=== PATIENT | male | born 1955 | race Caucasian/White ===

== ENCOUNTER 2018-11-23 06:17 | Inpatient (IN) | payer BC ==
[2018-11-23] MEDS ORDERED: THROMBIN (BOVINE) 5,000 UNIT VIAL TP ONE ×2 (07:52→10:43)
[2018-11-23] MEDS ORDERED: HEPARIN NA (PORCINE) 5,000 UNITS/ML 1ML VIAL ONE (07:52)
[2018-11-23] MEDS ORDERED: BENZOIN TINCTURE SWABSTICK TP ONE (07:52)
[2018-11-23] MEDS ORDERED: MIDAZOLAM HCL 2 MG/2 ML SINGLE DOSE VIAL ONE (08:07)
[2018-11-23] MEDS ORDERED: fentaNYL CITRATE 250 MCG/5 ML VIAL ONE ×2 (08:07→08:51)
[2018-11-23] MEDS ORDERED: PROPOFOL 20 ML ONE ×8 (08:08→11:55)
[2018-11-23] MEDS ORDERED: SUCCINYLCHOLINE CHLORIDE 200 MG/10 ML VIAL ONE (08:08)
[2018-11-23] MEDS ORDERED: PHENYLEPHRINE HCL 10 MG/1 ML SINGLE DOSE VIAL ONE (08:08)
[2018-11-23] MEDS ORDERED: ROCURONIUM BROMIDE 50 MG/5 ML VIAL ONE (08:19)
[2018-11-23] MEDS ORDERED: VANCOMYCIN 1,000 MG VIAL (RESTRICTED TO ID ONLY) IVPB ONE (08:43)
[2018-11-23] MEDS ORDERED: ceFAZolin SODIUM 1 GM VIAL IVPB ONE ×2 (08:45→11:34)
[2018-11-23] MEDS ORDERED: DESFLURANE GAS 240 ML BOTTLE IH ONE (08:49)
[2018-11-23] MEDS ORDERED: ceFAZolin SODIUM 1 GM VIAL ONE ×3 (08:50→11:22)
[2018-11-23] MEDS ORDERED: VANCOMYCIN 1,000 MG VIAL (RESTRICTED TO ID ONLY) ONE (09:00)
[2018-11-23] MEDS ORDERED: BUPIVACAINE LIPOSOME/PF (EXPAREL) 266 MG/20 ML VIAL NR ONE (09:30)
[2018-11-23] MEDS ORDERED: ONDANSETRON 4 MG/2 ML VIAL ONE ×2 (09:33→11:38)
[2018-11-23] MEDS ORDERED: DEXAMETHASONE SOD PHOSPHATE 4 MG/1 ML VIAL ONE (09:33)
--- NOTE | 2018-11-23 09:53 | EKG ---
Test Reason : Blood Pressure : / mmHG Vent. Rate : 075 BPM Atrial Rate : 075 BPM P-R Int : 166 ms QRS Dur : 112 ms QT Int : 412 ms P-R-T Axes : 080 083 054 degrees QTc Int : 460 ms NORMAL SINUS RHYTHM NORMAL ECG NO PREVIOUS ECGS AVAILABLE Confirmed by KAUSHIK MCGOVERN MD ([id number]) on 11/23/2018 9:53:06 AM Referred By: Iain Alvarado Confirmed By:KAUSHIK MCGOVERN MD
[2018-11-23] MEDS ORDERED: BUPIVACAINE HCL/PF (5 MG/ML) 30 ML VIAL IJ ONE (10:43)
[2018-11-23] MEDS ORDERED: BUPIVACAINE LIPOSOME/PF (EXPAREL) 266 MG/20 ML VIAL IJ ONE (10:43)
[2018-11-23] MEDS ORDERED: NEOSTIGMINE METHYLSULFATE 0.5 MG/1 ML - 10 ML MDV ONE (11:36)
[2018-11-23] MEDS ORDERED: GLYCOPYRROLATE 0.2 MG/1 ML VIAL ONE (11:36)
[2018-11-23] MEDS ORDERED: ACETAMINOPHEN INJECTION 100 ML IVPB ONE (11:42)
[2018-11-23] MEDS ORDERED: LIDOCAINE HCL/PF 2% SDV 5ML VIAL ONE (12:19)
--- NOTE | 2018-11-23 12:40 | PN ---
Progress Note (short form) - Note Progress Note: 63M s/p L3 laminectomy; L2 & L4 laminotomies; L3-L4 PLIF; L3-L4 posterior instrumentation; L3-L4 posterolateral arthrodesis; bone graft; bone marrow aspiration POD #0. -Admit to ICU post-op. -EtOH withdrawal precautions: Librium taper (25mg po q8h x 3 days, then taper off); banana bag. -Pain control: per anaesthesia team; recommend RADIOLOGY SERVICES MANAGER; no NSAID's. -Head of bed FLAT; BEDREST x 72 hrs. post-op d/t intra-operative durotomy and primary dural repair. -DVT PPx: - Mechanical only: PABLO's, SCD's. -Incentive spirometry q15min. -PT/OT/Rehab, OOB. -WBAT B/L LE. -q4h B/L LE NV checks. -Post-op antibiotics x 2 doses. -NPO until flatus. -f/u AM labs. -f/u drain output. -d/c Rivera catheter when patient ambulating comfortably. -Care per ICU & medical hospitalist team. -Discharge planning: f/u 12/04/2018 at [facility] [place] office; call for appointment; . -Will follow. Iain Alvarado MD (Orthopaedic Surgery).
[2018-11-23] MEDS ORDERED: HYDROmorphone *PCA* 10MG/50ML DISP.SYRIN PCA ONE (12:44)
--- NOTE | 2018-11-23 12:46 | OP ---
Operative Note - Note: Operative Date: 11/23/18 Pre-Operative Diagnosis: 1. L3-L4 intervertebral disc disorder. 2. L3-L4 spinal stenosis. 3. Lumbar kyphosis. 4. L3-L4 segmental instability. Operation: 1. L3 laminectomy. 2. L2 & L4 laminotomies. 3. L3-L4 PLIF. 4. L3- L4 posterior instrumentation. 5. L3-L4 posterolateral arthrodesis. 6. Bone autograft. 7. Bone allograft. 8. Bone marrow aspiration. 9. Complex wound closure (10cm). 10. Biplanar fluoroscopy. 11. Intra-operative neural monitoring. Implants: Cage: RTI fortilink size #[id number]. Screws: 4 6.5x45mm. Rods: 2 40mm Post-Operative Diagnosis: Same as Pre-op Surgeon: Iain Alvarado Prescription Eyeglass Maker: Juwan Alvarado Anesthesiologist/PROOFER: Merced Frazier Anesthesia: General, Local Specimens Removed: L3-L4 disc. Estimated Blood Loss (mls): 600 Blood Volume Replaced (mls): 250 (Cell saver.) Fluid Volume Replaced (mls): 2,000 (Crystalloid.) Operative Report Dictated: Yes
[2018-11-23] MEDS ORDERED: ONDANSETRON 4 MG/2 ML VIAL IVPUSH PRN ×2 (12:48→12:54)
[2018-11-23] MEDS ORDERED: ACETAMINOPHEN 1000 MG/100 ML VIAL (NON FORMULARY) IVPB PRN (12:54)
[2018-11-23] MEDS: HYDROmorphone *PCA* 10MG/50ML DISP.SYRIN PCA SCH (12:55)
[2018-11-23] MEDS ORDERED: LACTATED RINGERS SOLUTION 1,000 ML IV SCH (13:00)
[2018-11-23] MEDS ORDERED: FOLIC ACID INJECTION - 1 MG, THIAMINE HCL 100 MG, MULTIVIT INJECTION ADULT 10 ML in SOD... IVPB ONE (13:06)
--- NOTE | 2018-11-23 15:04 | CONSULT ---
Consultation: ICU team REQUESTING PROVIDER:Dr Dewitt orthopedics CONSULT REQUEST: We have been asked to medically evaluate this patient for ( Post op monitoring ). HISTORY OF PRESENT ILLNESS: 63 year old male with h/o HTN , ETOH and lower back pain radiated to left presented to the hospital for lumbar spine laminectomy POD#0 Pt last drink of alcohol yesterday 2 pm vodka denies any fever, chills, N/V/D/C denies any chest pain or sob , denies any abdominal pain. denies any urinary symptoms PMHx: HTN PSHx: cervical spine surgery 7 years ago FH: non contributory Meds : Amlodipine and losartan , declofinac for pain Allergies : NKDA SH: Alcoholic , smoke cigars on daily bases , no drugs, last drink yesterday 2 pm . 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 REVIEW OF SYSTEMS: lower back pain in surgery sight otherwise negative CONSTITUTIONAL: Absent: fever, chills, diaphoresis, generalized weakness, malaise, loss of appetite, weight change HEENT: Absent: rhinorrhea, nasal congestion, throat pain, throat swelling, difficulty swallowing, mouth swelling, ear pain, eye pain, visual changes CARDIOVASCULAR: Absent: chest pain, syncope, palpitations, irregular heart rate, lightheadedness , peripheral edema RESPIRATORY: Absent: cough, shortness of breath, dyspnea with exertion, orthopnea, wheezing, stridor, hemoptysis GASTROINTESTINAL: Absent: abdominal pain, abdominal distension, nausea, vomiting, diarrhea, constipation, melena, hematochezia GENITOURINARY: Absent: dysuria, frequency, urgency, hesitancy, hematuria, flank pain, genital pain MUSCULOSKELETAL: Absent: myalgia, arthralgia, joint swelling, back pain, neck pain SKIN: Absent: rash, itching, pallor HEMATOLOGIC/IMMUNOLOGIC: Absent: easy bleeding, easy bruising, lymphadenopathy, frequent infections ENDOCRINE: Absent: unexplained weight gain, unexplained weight loss, heat intolerance, cold intolerance NEUROLOGIC: Absent: headache, focal weakness or paresthesias, dizziness, unsteady gait, seizure, mental status changes, bladder or bowel incontinence PSYCHIATRIC: Absent: anxiety, depression, suicidal or homicidal ideation, hallucinations. PHYSICAL EXAMINATION Vital Signs - 24 hr 11/23/18 11/23/18 11/23/18 06:58 06:59 12:30 Temperature 98.4 F 98 F Pulse Rate 93 H 95 H Respiratory 20 18 Rate Blood Pressure 150/82 168/80 O2 Sat by Pulse 97 98 Oximetry (%) 11/23/18 11/23/18 11/23/18 12:45 12:55 13:00 Temperature Pulse Rate 87 90 90 Respiratory 18 18 18 Rate Blood Pressure 168/82 152/78 152/78 O2 Sat by Pulse 99 99 Oximetry (%) 11/23/18 11/23/18 11/23/18 13:15 13:25 13:30 Temperature Pulse Rate 88 95 H 95 H Respiratory 18 18 18 Rate Blood Pressure 167/84 154/78 154/78 O2 Sat by Pulse 98 98 Oximetry (%) 11/23/18 11/23/18 11/23/18 13:45 14:00 14:15 Temperature Pulse Rate 91 H 96 H 89 Respiratory 18 18 18 Rate Blood Pressure 164/78 150/80 158/79 O2 Sat by Pulse 97 96 97 Oximetry (%) GENERAL: Awake, alert, and fully oriented, in no acute distress. HEAD: Normal with no signs of trauma. EYES: Pupils equal, round and reactive to light, extraocular movements intact, EARS, NOSE, THROAT: Ears normal, nares patent, oropharynx clear without exudates. Moist mucous membranes. NECK: Normal range of motion, supple without lymphadenopathy, JVD, or masses. LUNGS: Breath sounds equal, clear to auscultation bilaterally. No wheezes, and no crackles. No accessory muscle use. HEART: Regular rate and rhythm, normal S1 and S2 without murmur, rub or gallop. ABDOMEN: Soft, nontender, not distended, normoactive bowel sounds, no guarding, no rebound, MUSCULOSKELETAL: Normal range of motion at all joints. No bony deformities or tenderness. drainage in place UPPER EXTREMITIES: 2+ pulses, warm, well-perfused. No cyanosis. No clubbing. Cap refill <2 seconds. No peripheral edema. LOWER EXTREMITIES: 2+ pulses, warm, well-perfused. No calf tenderness. No peripheral edema. NEUROLOGICAL: Cranial nerves II-XII intact. Normal speech.gait not observed , no tremors , or astrexis PSYCHIATRIC: Cooperative. SKIN: Warm, dry, normal turgor, Laboratory Results - last 24 hr 11/23/18 11/23/18 06:33 07:00 Blood Type O POSITIVE O POSITIVE Antibody Screen Negative Active Medications Generic Name Dose Route Start Last Admin Trade Name Freq PRN Reason Stop Dose Admin Acetaminophen 1,000 mg 11/23/18 12:54 Ofirmev Injection - IVPB Q6H PRN If narcotics are ineffective Amlodipine Besylate 10 mg 11/24/18 10:00 Norvasc - PO DAILY [facility] Chlordiazepoxide HCl 25 mg 11/23/18 15:00 Librium - PO TID [facility] Hydromorphone HCl 0 mg 11/23/18 13:00 11/23/18 12:55 Dilaudid Bone Char Kiln Tender - TOURIST HOME KEEPER 11/26/18 12:50 10 mg TOURIST HOME KEEPER ALEXEI Administration Protocol Lactated Ringer's 1,000 mls @ 125 mls/hr 11/23/18 13:00 Lactated Ringers Solution IV ASDIR ALEXEI Folic Acid 1 mg/ Thiamine HCl 1,000 mls @ 125 mls/hr 11/23/18 13:06 100 mg/ Multivitamins/Minerals IVPB 11/23/18 21:05 10 ml/ Sodium Chloride ONCE ONE Cefazolin Sodium/Dextrose 2 gm in 50 mls @ 100 mls/hr 11/23/18 19:00 Ancef 2 Gm Premixed Ivpb - IVPB 11/24/18 03:29 Q8H [facility] Losartan Potassium 100 mg 11/24/18 10:00 Cozaar - PO DAILY [facility] Ondansetron HCl 4 mg 11/23/18 12:48 Zofran Injection IVPUSH Q6H PRN NAUSEA AND/OR VOMITING ASSESSMENT/PLAN: 63M s/p L3 laminectomy; L2 & L4 laminotomies; L3-L4 PLIF; L3-L4 posterior instrumentation; L3-L4 posterolateral arthrodesis; bone graft; bone marrow aspiration POD #0. # S/P L2, L3 ,L4 laminectomy * POD#0 , a febrile , blood loss 600 cc, crystaloid replenished 2000cc * Pain control per surgery on TOURIST HOME KEEPER Dilaudid , no NSAIDS * IV fluids 125 cc/hr ringer lactate * NPO till pass flatus * Keep head of bed elevated * Incentive spirometry * PT/OT when stable * Monitor in ICU , cafeteria monitor , BP monitor * ABX prophylaxis x2 doses * d/c Rivera catheter when patient ambulating comfortably. * f/u cbc, cmp, mag , phosphorous in AM * f/u drain output. * WBAT B/L LE. # Etoh Abuse /withdrwal * on libirium protocol * banana bag , folic acid * libirium PRN #HTN * resume home meds, lozartan and Amlodipine #FEN * F: RL 125 CC/hr * E monitor lytes * N: npo till pass flatus #Proph * DVTS : SCDs , TEDs * GI : no need for now #Dispo * monitor in ICU * Discharge planning: f/u 12/04/2018 at [facility] office; call for appointment; We will continue to follow the patient. Thank you for this consultative opportunity. Visit type - Emergency Visit Emergency Visit: Yes ED Registration Date: 11/23/18 Care time: The patient presented to the Emergency Department on the above date and was hospitalized for further evaluation of their emergent condition. - New Patient This patient is new to me today: Yes Date on this admission: 11/23/18 - Critical Care Critical Care patient: Yes Total Critical Care Time (in minutes): 45 Critical Care Statement: The care of this patient involved high complexity decision making to prevent further life threatening deterioration of the patient 's condition and/or to evaluate & treat vital organ system(s) failure or risk of failure.
[2018-11-23] MEDS: chlordiazePOXIDE HCL 25 MG CAPSULE PO SCH ×2 (15:10→21:57)
[2018-11-23] MEDS: LACTATED RINGERS SOLUTION 1,000 ML IV SCH (17:09)
[2018-11-23] MEDS ORDERED: amLODIPine BESYLATE 10 MG TABLET (FP) PO ONE (17:45)
[2018-11-23] MEDS ORDERED: LOSARTAN POTASSIUM 50 MG TABLET (FP) PO ONE (17:45)
[2018-11-23] MEDS ORDERED: ceFAZolin 2 GRAM PREMIX BAG IVPB SCH (19:00)
[2018-11-23] MEDS: CEFAZOLIN 2 GM/D5W 2 GM/50 ML ML IVPB SCH (19:55)
--- NOTE | 2018-11-23 21:21 | OP ---
DATE OF OPERATION: 11/23/2018 SURGEON: Iain Alvarado MD CANNON PINION ADJUSTER: Juwan Alvarado MD PREOPERATIVE DIAGNOSIS: Disk prolapse with left femoral neuropathy, L3-4. POSTOPERATIVE DIAGNOSIS: Disk prolapse with left femoral neuropathy, L3-4, with associated incidental durotomy and repair. ANESTHESIA: General. ANTIBIOTICS GIVEN: Keflex 2 g, vancomycin 1 g, and then Kefzol 1 g given at the time of instrumentation of the spine. OPERATION PERFORMED: 1. Laminectomy, L3. 2. Diskectomy, L3-4. 3. Posterior lumbar interbody fusion with cage, L3-4. 4. Anterior arthrodesis, L3-4 with autologous bone graft. 5. Pedicle screw instrumentation, L3-4. 6. Posterolateral arthrodesis, L3-4. 7. Use of biplanar fluoroscopy and intraoperative neuromonitoring. 8. Incidental durotomy with primary repair. 9. Use of autologous bone graft and allograft. 10. Use of bone marrow aspirate concentrate from left posterior ilium. 11. Complex wound closure, 10 cm. INDICATIONS FOR SURGERY: Failed conservative treatment for progressive neurological weakness of the left anterior thigh and quadriceps mechanism due to a large central and paracentral disk prolapse at L3-4 with disk space narrowing and associated segmental instability. OPERATION DETAILS: The patient correctly identified, brought into the operating room, placed prone on an operating room table. The midline incision was utilized. The dissection was taken through the skin, subcutaneous tissue to the tip of the spinous process of L2 to L4. Using anatomic guidelines as well as lateral fluoroscopic x-ray, the actual interspace at L3-4 was identified to further correct level surgery appropriately. The lamina of L3 was resected using Leksell rongeurs as well as Candis bone abdoulaye and Kerrison upcuts, and using osteotomes, the osteotomy site was from splitting the pars interarticularis and the inferior facet to gain access to the superior facet, and an undercutting facetectomy then performed, both left- and right-hand side. The dura was completely adherent to the bone bed. With difficulty and separation, the dura was freed, but the central section as we removed the bone; so, a dural rent occurred, and this was repaired with 5 No. 4-0 Nurolon sutures, a watertight seal achieved. Valsalva maneuver was performed repeatedly at 40 cm of water revealed a completely dry, sealed repair. Surgicel and DuraSeal applied on top of this for extra seal. The dura itself appeared unhealthy, very friable. Once the dura had been repaired, dural turgor was normal. The theca was gently retracted from left to right. Large disk at L3-4 encountered. The disk was resected by an 11 blade and transversely incised into the annulus. Disk material literally poured out. Shaving was to size 12, and a size 13 cage was opted for after the entire disk material form the interbody space was removed. This was removed using pituitary rongeurs, serrated curettes, as well as sequential shavings right up to size 11. So, a press fit 12 cage inserted. The interbody space was packed with bone. This was bone grafting harvested from the posterior elements and then milled in a [employer] Ricardo mill and impacted into the interspace appropriately. Once that had been performed, verification of the cage and x-ray revealed nice opening of the disk space and the opening of the foramen. The neuromonitoring team reported dramatic improvement in the left L3 and L4 appropriate nerve roots in terms of motor responses. Pedicle screws L3-4 were inserted. Entry was then anatomical guideline of the transverse process and superior facet. A 4.5 drill was utilized to drill into the bone bed appropriately after palpating the confines of the bone bed appropriately with a ball-tip feeler. The screws, which were 45 x 6.5 precision screws, inserted, providing solid fixation into each level. Each screw tested revealed milliamps well above 20, and the L3-4 interspace was then fused by seating the dillon appropriately, fixing with captured screw head and packing in the intertransverse plane autologous as well as allograft, as well as allograft mixed with bone marrow aspirate concentrate harvested from the left posterior ilium; 60 mL were harvested. The muscle was appropriately trimmed for fibrous and necrotic material. The closure of the complete satisfaction of x-ray positioning of implants and sealed dura and completely decreased and improving neuromonitoring as follows: Muscle that is erector spinae 1 Vicryl, fascia 1 Vicryl, subcutaneous 1 and 2-0 Vicryl, skin 3- 0 Monocryl with Steri-Strips, thus completing a 4-layer complex wound closure. This measured 20 cm. No other complications. Operation was performed. The rest of the closure was uncomplicated and sealed with the appropriate dressing. Patient will be nursed in the ICU. Delirium tremens appropriate measures were reinstituted immediately postop. MD CANDIS Gordillo/[id number] MTDD
[2018-11-24] MEDS: CEFAZOLIN 2 GM/D5W 2 GM/50 ML ML IVPB SCH (02:18)
[2018-11-24] MEDS: chlordiazePOXIDE HCL 25 MG CAPSULE PO SCH (06:04)
[2018-11-24 06:27] LABS: HEMATOCRIT 37.3 % (35.4-49); HEMOGLOBIN 12.5 GM/dL (11.7-16.9); MCH 35.4 pg (25.7-33.7); MCHC 33.6 g/dl (32.0-35.9); MEAN CELL VOLUME 105.5 fl (80-96); MEAN PLT VOLUME 8.6 fl (7.5-11.1); PLATELET COUNT 131 K/MM3 (134-434); RBC 3.53 M/mm3 (4.00-5.60); RDW 14.1 % (11.9-15.9)
[2018-11-24 06:53] LABS: ANION GAP 7 MMOL/L (8-16); BLOOD UREA NITROGEN 11 mg/dL (7-18); CALCIUM 7.9 mg/dL (8.5-10.1); CHLORIDE 105 mmol/L (98-107); CO2 26 mmol/L (21-32); CREATININE 0.9 mg/dL (0.55-1.3); GLUCOSE,RANDOM 138 mg/dL (74-106); MAGNESIUM 1.5 mg/dL (1.8-2.4); PHOSPHOROUS 2.7 mg/dL (2.5-4.9); POTASSIUM 3.4 mmol/L (3.5-5.1); SODIUM 138 mmol/L (136-145)
[2018-11-24] MEDS ORDERED: MAGNESIUM SULF 50% (8.12 MEQ/2 ML-1 GM VIAL) IVPB ONE (08:30)
[2018-11-24] MEDS ORDERED: POTASSIUM CHLORIDE 20 MEQ PREMIX IVPB 100 ML IVPB ONE (08:30)
[2018-11-24] MEDS: amLODIPine BESYLATE 10 MG TABLET (FP) PO SCH (09:31)
[2018-11-24] MEDS: LOSARTAN POTASSIUM 50 MG TABLET (FP) PO SCH (09:31)
[2018-11-24] MEDS: LACTATED RINGERS SOLUTION 1,000 ML IV SCH ×2 (09:34→13:00)
--- NOTE | 2018-11-24 09:37 | PN ---
Progress Note (short form) - Note Progress Note: Anesthesiology Post-op/Pain Service 63 y.o. POD#1 s/p L3-4 Fusion under GA with post-op CHAMPAGNE MAKER. Pt. is stable but does c/o some pain that is relieved by CHAMPAGNE MAKER. He has no other complaints except that he would like to eat. VSS. 63 y.o. man with stable post-operative course on CHAMPAGNE MAKER. Will continue CHAMPAGNE MAKER for now. Management as per primary team.
--- NOTE | 2018-11-24 12:05 | PN ---
Teaching Attending Note Name of Resident: Karely Sim ATTENDING PHYSICIAN STATEMENT I saw and evaluated the patient. I reviewed the resident's note and discussed the case with the resident. I agree with the resident's findings and plan as documented. SUBJECTIVE: declined interview and exam. ASSESSMENT AND PLAN: 63 y/o man with /o ETOH abuse , and HTN who presented for lumbar sx. 1- h/o Lumbar disk disease, stenosis, and kyphosis: s/p lumbar surgery. POD 1 - Cont KENNEL STAFF MEMBER. - No food until flatus - SCDS for DVT Px - incentive spirometer - rest per ortho 2- ETOH abuse. - PRN librium for withdrawal symptoms only - start thiamine and folate. received IV thiamine on admission - Unfortunately, I'm unable to evaluate for Wernicke's without exam, but itis unlikely 3- HTN: cont home meds. 4- monitor and replete electrolytes SCDS.
[2018-11-24] MEDS: chlordiazePOXIDE HCL 25 MG CAPSULE PO PRN ×2 (12:24→19:53)
[2018-11-24] MEDS: HYDROmorphone *PCA* 10MG/50ML DISP.SYRIN PCA SCH (13:00)
--- NOTE | 2018-11-24 13:04 | PN ---
Physical Exam: SUBJECTIVE: Patient seen and examined no acute events over night denies numbness, tingling or weakness , reports pain in surgery sight asking for food but no flatus so far OBJECTIVE: Vital Signs Period Temp Pulse Resp BP Sys/Canales Pulse Ox Last 24 Hr 98 F-98.5 F 68-100 11-18 95-167/49-100 93-98 GENERAL: Awake, alert, and fully oriented, in no acute distress. HEAD: Normal with no signs of trauma. EYES: Pupils equal, round and reactive to light, extraocular movements intact, EARS, NOSE, THROAT: Ears normal, nares patent, oropharynx clear without exudates. Moist mucous membranes. NECK: Normal range of motion, supple without lymphadenopathy, JVD, or masses. LUNGS: Breath sounds equal, clear to auscultation bilaterally. No wheezes, and no crackles. No accessory muscle use. HEART: Regular rate and rhythm, normal S1 and S2 without murmur, rub or gallop. ABDOMEN: Soft, nontender, not distended, normoactive bowel sounds, no guarding, no rebound, MUSCULOSKELETAL: Normal range of motion at all joints. No bony deformities or tenderness. drainage in place UPPER EXTREMITIES: 2+ pulses, warm, well-perfused. No cyanosis. No clubbing. Cap refill <2 seconds. No peripheral edema. LOWER EXTREMITIES: 2+ pulses, warm, well-perfused. No calf tenderness. No peripheral edema. NEUROLOGICAL: Cranial nerves II-XII intact. Normal speech.gait not observed , no tremors , or astrexis PSYCHIATRIC: Cooperative. SKIN: Warm, dry, normal turgor, Laboratory Results - last 24 hr 11/24/18 11/24/18 05:30 05:30 WBC 14.0 H RBC 3.53 L Hgb 12.5 Hct 37.3 MCV 105.5 H MCH 35.4 H MCHC 33.6 RDW 14.1 Plt Count 131 L MPV 8.6 Sodium 138 Potassium 3.4 L Chloride 105 Carbon Dioxide 26 Anion Gap 7 L BUN 11 Creatinine 0.9 Creat Clearance w eGFR > 60 Random Glucose 138 H Calcium 7.9 L Phosphorus 2.7 Magnesium 1.5 L Active Medications Generic Name Dose Route Start Last Admin Trade Name Freq PRN Reason Stop Dose Admin Acetaminophen 1,000 mg 11/23/18 12:54 Ofirmev Injection - IVPB Q6H PRN If narcotics are ineffective Amlodipine Besylate 10 mg 11/24/18 10:00 11/24/18 09:31 Norvasc - PO 10 mg DAILY ALEXEI Administration Chlordiazepoxide HCl 25 mg 11/24/18 12:05 11/24/18 12:24 Librium - PO 25 mg TID PRN Administration WITHDRAWAL(CONT SUBST) Folic Acid 1 mg 11/25/18 10:00 Folic Acid - PO DAILY ALEXEI Hydromorphone HCl 0 mg 11/23/18 13:00 11/23/18 12:55 Dilaudid Utility Worker Film Processing - INSIDE SALES CONSULTANT 11/26/18 12:50 10 mg INSIDE SALES CONSULTANT ALEXEI Administration Protocol Lactated Ringer's 1,000 mls @ 125 mls/hr 11/23/18 13:00 11/24/18 09:34 Lactated Ringers Solution IV 125 mls/hr ASDIR ALEXEI Administration Losartan Potassium 100 mg 11/24/18 10:00 11/24/18 09:31 Cozaar - PO 100 mg DAILY ALEXEI Administration Ondansetron HCl 4 mg 11/23/18 12:48 Zofran Injection IVPUSH Q6H PRN NAUSEA AND/OR VOMITING Thiamine HCl 100 mg 11/25/18 10:00 Vitamin B1 - PO DAILY ALEXEI CBC, BMP 11/24/18 05:30 11/24/18 05:30 ASSESSMENT/PLAN: 63M s/p L3 laminectomy; L2 & L4 laminotomies; L3-L4 PLIF; L3-L4 posterior instrumentation; L3-L4 posterolateral arthrodesis; bone graft; bone marrow aspiration POD #0. # S/P L2, L3 ,L4 laminectomy * POD#1 , a febrile , * Pain control per surgery on INSIDE SALES CONSULTANT Dilaudid , no NSAIDS * start oxycodon 5 and 10 PRN * IV fluids 125 cc/hr ringer lactate * NPO till pass flatus * keep bed flat * Incentive spirometry * PT/OT when stable * Monitor in ICU , city editor , BP monitor * ABX prophylaxis x2 doses * d/c Rivera catheter when patient ambulating comfortably. * f/u cbc, cmp, mag , phosphorous in AM * f/u drain output. * WBAT B/L LE. # Etoh Abuse /withdrwal * on libirium protocol * banana bag , folic acid * libirium PRN #HTN * resume home meds, lozartan and Amlodipine #FEN * F: RL 125 CC/hr * E monitor lytes * N: npo till pass flatus #Proph * DVTS : SCDs , TEDs * GI : no need for now #Dispo * monitor in ICU * Discharge planning: f/u 12/04/2018 at [facility] office; call for appointment; We will continue to follow the patient. Thank you for this consultative opportunity. Visit type - Emergency Visit Emergency Visit: Yes ED Registration Date: 11/23/18 Care time: The patient presented to the Emergency Department on the above date and was hospitalized for further evaluation of their emergent condition. - New Patient This patient is new to me today: No - Critical Care Critical Care patient: Yes Total Critical Care Time (in minutes): 45 Critical Care Statement: The care of this patient involved high complexity decision making to prevent further life threatening deterioration of the patient 's condition and/or to evaluate & treat vital organ system(s) failure or risk of failure.
--- NOTE | 2018-11-24 13:08 | PN ---
Teaching Attending Note Name of Resident: Josh Atkinson ATTENDING PHYSICIAN STATEMENT I saw and evaluated the patient. I reviewed the resident's note and discussed the case with the resident. I agree with the resident's findings and plan as documented. SUBJECTIVE: Patient seen and examined in the ICU. Awake and alert. Reports pain is 10/10. Denies CP or SOB. Noted patient possibly drcocol naidka the AM or at least the evening prior to surgery. Not tremulous. Intake & Output 11/21/18 11/22/18 11/23/18 11/24/18 23:59 23:59 23:59 23:59 Intake Total 4250 1675 Output Total 1950 1100 Balance 2300 575 Weight 174 lb 6.17 oz 171 lb 11.841 oz Last Vital Signs Temp Pulse Resp BP Pulse Ox 98.0 F 81 16 136/81 94 L 11/24/18 12:00 11/24/18 12:00 11/24/18 12:00 11/24/18 12:00 11/24/18 08:00 Active Medications Acetaminophen (Ofirmev Injection -) 1,000 mg IVPB Q6H PRN PRN Reason: If narcotics are ineffective Amlodipine Besylate (Norvasc -) 10 mg PO DAILY [facility] Last Admin: 11/24/18 09:31 Dose: 10 mg Chlordiazepoxide HCl (Librium -) 25 mg PO TID PRN PRN Reason: WITHDRAWAL(CONT SUBST) Last Admin: 11/24/18 12:24 Dose: 25 mg Folic Acid (Folic Acid -) 1 mg PO DAILY [facility] Hydromorphone HCl (Dilaudid Make Up Arranger -) 0 mg MOLDER TRIMMER MOLDER TRIMMER [facility]; Protocol Stop: 11/26/18 12:50 Last Admin: 11/23/18 12:55 Dose: 10 mg Lactated Ringer's (Lactated Ringers Solution) 1,000 mls @ 125 mls/hr IV ASDIR [facility] Last Admin: 11/24/18 09:34 Dose: 125 mls/hr Losartan Potassium (Cozaar -) 100 mg PO DAILY [facility] Last Admin: 11/24/18 09:31 Dose: 100 mg Ondansetron HCl (Zofran Injection) 4 mg IVPUSH Q6H PRN PRN Reason: NAUSEA AND/OR VOMITING Thiamine HCl (Vitamin B1 -) 100 mg PO DAILY [facility] GENERAL: Awake, alert, and fully oriented, in no acute distress. HEAD: Normal with no signs of trauma. EYES: Pupils equal, round and reactive to light, extraocular movements intact, EARS, NOSE, THROAT: Ears normal, nares patent, oropharynx clear without exudates. Moist mucous membranes. NECK: Normal range of motion, supple without lymphadenopathy, JVD, or masses. LUNGS: Breath sounds equal, clear to auscultation bilaterally. No wheezes, and no crackles. No accessory muscle use. HEART: Regular rate and rhythm, normal S1 and S2 without murmur, rub or gallop. ABDOMEN: Soft, nontender, not distended, normoactive bowel sounds, no guarding, no rebound, MUSCULOSKELETAL: Normal range of motion at all joints. No bony deformities or tenderness. drainage in place UPPER EXTREMITIES: 2+ pulses, warm, well-perfused. No cyanosis. No clubbing. Cap refill <2 seconds. No peripheral edema. LOWER EXTREMITIES: 2+ pulses, warm, well-perfused. No calf tenderness. No peripheral edema. NEUROLOGICAL: Non-focal SKIN: Warm, dry, normal turgor Laboratory Results - last 24 hr 11/24/18 11/24/18 05:30 05:30 WBC 14.0 H RBC 3.53 L Hgb 12.5 Hct 37.3 MCV 105.5 H MCH 35.4 H MCHC 33.6 RDW 14.1 Plt Count 131 L MPV 8.6 Sodium 138 Potassium 3.4 L Chloride 105 Carbon Dioxide 26 Anion Gap 7 L BUN 11 Creatinine 0.9 Creat Clearance w eGFR > 60 Random Glucose 138 H Calcium 7.9 L Phosphorus 2.7 Magnesium 1.5 L ASSESSMENT/PLAN: POD #1: L3 laminectomy; L2 & L4 laminotomies; L3-L4 PLIF; L3-L4 posterior instrumentation; L3-L4 posterolateral arthrodesis; bone graft; bone marrow aspiration POD ETOH abuse with recent use of ETOH HTN Pain control Incentive Spirometry O2 as needed Monitor Neuro exam Mechanical VTE prophylaxis Strict I & O D/C dye when OOB PO as tolerated Follow drain output Monitor for withdrawal ICU monitoring as requested by surgery due to dural repair Dr Speras
--- NOTE | 2018-11-24 13:33 | PN ---
Physical Exam: SUBJECTIVE: Patient seen and examined at bedside. Per nurse, no acute events overnight. Admits to pain at surgical site, but denies chest pain, sob, abd pain , n/v. OBJECTIVE: Vital Signs Temperature 98.0 F 11/24/18 12:00 Pulse Rate 81 11/24/18 12:00 Respiratory Rate 16 11/24/18 12:00 Blood Pressure 136/81 11/24/18 12:00 O2 Sat by Pulse Oximetry (%) 94 L 11/24/18 08:00 Declined physical exam. CBCD WBC 14.0 K/mm3 (4.0-10.0) H 11/24/18 05:30 RBC 3.53 M/mm3 (4.00-5.60) L 11/24/18 05:30 Hgb 12.5 GM/dL (11.7-16.9) 11/24/18 05:30 Hct 37.3 % (35.4-49) 11/24/18 05:30 MCV 105.5 fl (80-96) H 11/24/18 05:30 MCHC 33.6 g/dl (32.0-35.9) 11/24/18 05:30 RDW 14.1 % (11.9-15.9) 11/24/18 05:30 Plt Count 131 K/MM3 (134-434) L 11/24/18 05:30 MPV 8.6 fl (7.5-11.1) 11/24/18 05:30 CMP Sodium 138 mmol/L (136-145) 11/24/18 05:30 Potassium 3.4 mmol/L (3.5-5.1) L 11/24/18 05:30 Chloride 105 mmol/L (98-107) 11/24/18 05:30 Carbon Dioxide 26 mmol/L (21-32) 11/24/18 05:30 Anion Gap 7 MMOL/L (8-16) L 11/24/18 05:30 BUN 11 mg/dL (7-18) 11/24/18 05:30 Creatinine 0.9 mg/dL (0.55-1.3) 11/24/18 05:30 Creat Clearance w eGFR > 60 (>60) 11/24/18 05:30 Calcium 7.9 mg/dL (8.5-10.1) L 11/24/18 05:30 Active Medications Acetaminophen (Ofirmev Injection -) 1,000 mg IVPB Q6H PRN PRN Reason: If narcotics are ineffective Amlodipine Besylate (Norvasc -) 10 mg PO DAILY [facility] Last Admin: 11/24/18 09:31 Dose: 10 mg Chlordiazepoxide HCl (Librium -) 25 mg PO TID PRN PRN Reason: WITHDRAWAL(CONT SUBST) Last Admin: 11/24/18 12:24 Dose: 25 mg Folic Acid (Folic Acid -) 1 mg PO DAILY [facility] Hydromorphone HCl (Dilaudid Cigarette Stamper -) 0 mg MATTRESS MAKER MATTRESS MAKER [facility]; Protocol Stop: 11/26/18 12:50 Last Admin: 11/24/18 13:00 Dose: Not Given Lactated Ringer's (Lactated Ringers Solution) 1,000 mls @ 125 mls/hr IV ASDIR [facility] Last Admin: 11/24/18 13:00 Dose: Not Given Losartan Potassium (Cozaar -) 100 mg PO DAILY [facility] Last Admin: 11/24/18 09:31 Dose: 100 mg Ondansetron HCl (Zofran Injection) 4 mg IVPUSH Q6H PRN PRN Reason: NAUSEA AND/OR VOMITING Thiamine HCl (Vitamin B1 -) 100 mg PO DAILY [facility] ASSESSMENT/PLAN: 63M s/p L3 laminectomy; L2 & L4 laminotomies; L3-L4 PLIF; L3-L4 posterior instrumentation; L3-L4 posterolateral arthrodesis; bone graft; bone marrow aspiration POD #1. #h/o Lumbar disk disease, stenosis, and kyphosis; s/p lumbar surgery. POD 1 -Zofran 4 mg IVP Q6H PRN for nausea -Per anesthesia, cont Dilaudid MATTRESS MAKER -NPO until flatus -d/c dye when OOB -IS -f/u ortho recs #ETOH abuse -Librium 25 mg PO TID PRN -Thiamine 100 mg PO QD, Folate 1 mg PO QD -Monitor for withdrawal #HTN Cont home meds: -Amlodipine 10 mg PO QD -Losartan 100 mg PO QD #Prophylaxis DVT- SCDs #FEN -LR @ 125 -recheck lytes in AM -NPO until flatus dispo -transfer to med-surg Visit type - Emergency Visit Emergency Visit: Yes ED Registration Date: 11/23/18 Care time: The patient presented to the Emergency Department on the above date and was hospitalized for further evaluation of their emergent condition. - New Patient This patient is new to me today: Yes Date on this admission: 11/24/18 - Critical Care Critical Care patient: Yes Total Critical Care Time (in minutes): 35 Critical Care Statement: The care of this patient involved high complexity decision making to prevent further life threatening deterioration of the patient 's condition and/or to evaluate & treat vital organ system(s) failure or risk of failure.
[2018-11-24] MEDS ORDERED: POTASSIUM PHOSPHATE 30 MM in SODIUM CHLORIDE 250 ML IVPB ONE (15:33)
[2018-11-24] MEDS ORDERED: MAGNESIUM OXIDE 400 MG TABLET (FP) PO ONE (15:34)
[2018-11-24] MEDS ORDERED: PT OWN MED DRAWER 7, Y5N ONE (16:17)
--- NOTE | 2018-11-24 17:47 | PATH ---
Surgical Pathology Report Patient Name: YESSENIA GOLDSMITH [facility]. Rec. #: [id number] /Age/Gender: 1955 (Age: 63) / M Account: [id number] [facility]2018 Received: 11/23/2018 Reported: 11/24/2018 Physicians: Iain Alvarado M.D. Specimen(s) Received DISC L3-L4 Clinical History Mid cervical disc disorder Final Diagnosis DISC, L3-L4, LAMINECTOMY, POSTERIOR LUMBAR INTERBODY FUSION: BENIGN INTERVERTEBRAL DISC TISSUE AND DENSE FIBROCONNECTIVE TISSUE. Electronically Signed Ana Stuart M.D. Gross Description Received in formalin labeled "L3-L4 disc," is a 3.0 x 2.5 x 0.4 cm aggregate of polk red fragments of fibrocartilaginous tissue. A transportation services representative portion is submitted in one cassette. DL/11/23/201811/23/2018
[2018-11-24] MEDS ORDERED: MELATONIN 5 MG TABLETS PO ONE (19:45)
[2018-11-24] MEDS: NICOTINE 7 MG/24 HOURS TOPICAL PATCH TD SCH (22:10)
[2018-11-25 06:30] LABS: BASO % 0.2 % (0-2.0); EOS % 0.1 % (0-4.5); HEMATOCRIT 30.8 % (35.4-49); HEMOGLOBIN 11.2 GM/dL (11.7-16.9); LYMPH % 15.6 % (8-40); MCH 38.7 pg (25.7-33.7); MCHC 36.4 g/dl (32.0-35.9); MEAN CELL VOLUME 106.3 fl (80-96); MONO % 8.3 % (3.8-10.2); NEUT % 75.8 % (42.8-82.8); PLATELET COUNT 94 K/MM3 (134-434); RDW 13.8 % (11.9-15.9); WHITE BLOOD COUNT 8.9 K/mm3 (4.0-10.0)
[2018-11-25 06:32] LABS: ADD RBC MORPHOLOGY YES
[2018-11-25] MEDS: chlordiazePOXIDE HCL 25 MG CAPSULE PO PRN (07:39)
[2018-11-25] MEDS ORDERED: oxyCODONE HCL 5 MG TABLET PO PRN (08:48)
[2018-11-25] MEDS ORDERED: POTASSIUM CHLORIDE TABS 20 MEQ TABLET.ER (FP) PO ONE (09:00)
[2018-11-25] MEDS: LOSARTAN POTASSIUM 50 MG TABLET (FP) PO SCH (09:21)
[2018-11-25] MEDS: THIAMINE HCL 100 MG TABLET (FP) PO SCH (09:21)
[2018-11-25] MEDS: amLODIPine BESYLATE 10 MG TABLET (FP) PO SCH (09:22)
[2018-11-25] MEDS: LACTATED RINGERS SOLUTION 1,000 ML IV SCH (09:22)
[2018-11-25] MEDS: FOLIC ACID 1 MG TABLET (FP) PO SCH (09:22)
[2018-11-25 09:24] LABS: ANION GAP 4 MMOL/L (8-16); BLOOD UREA NITROGEN 10 mg/dL (7-18); CALCIUM 7.7 mg/dL (8.5-10.1); CHLORIDE 107 mmol/L (98-107); CO2 27 mmol/L (21-32); CREATININE 0.7 mg/dL (0.55-1.3); GLUCOSE,RANDOM 117 mg/dL (74-106); PHOSPHOROUS 2.7 mg/dL (2.5-4.9); POTASSIUM 3.5 mmol/L (3.5-5.1); SODIUM 138 mmol/L (136-145)
[2018-11-25 09:25] LABS: ALBUMIN 2.2 g/dl (3.4-5.0); ALK PHOS 35 U/L (45-117); BILIRUBIN,TOTAL 0.9 mg/dL (0.2-1); MAGNESIUM 1.8 mg/dL (1.8-2.4); SGOT/AST 30 U/L (15-37); SGPT/ALT 15 U/L (13-61); TOT PROT 4.6 g/dl (6.4-8.2)
[2018-11-25] MEDS ORDERED: chlordiazePOXIDE HCL 25 MG CAPSULE PO PRN (09:42)
--- NOTE | 2018-11-25 10:09 | PN ---
Progress Note (short form) - Note Progress Note: Post op day#1.P 84,BP 119/61 and Spo2 94 on O2 4L NC.Patient stable and c/o pain score of 8-10/10.So increased Dilaudid TIN CONTAINER STRAIGHTENER from 8-12mg/4hrs.Will f/u tomorrow.
--- NOTE | 2018-11-25 10:38 | PN ---
Physical Exam: SUBJECTIVE: Patient seen and examined at bed side , some agitation over night treated with melatonin and libirium , complain of local pain in surgery sight denies nay fever, chills, N/V/D/C pass flatus but no BM yet , start on diet OBJECTIVE: Vital Signs Period Temp Pulse Resp BP Sys/Canales Pulse Ox Last 24 Hr 98.0 F-99.6 F 64-87 14-18 118-139/57-81 93-95 GENERAL: Awake, alert, and fully oriented, in no acute distress. HEAD: Normal with no signs of trauma. EYES: Pupils equal, round and reactive to light, extraocular movements intact, EARS, NOSE, THROAT: Ears normal, nares patent, oropharynx clear without exudates. Moist mucous membranes. NECK: Normal range of motion, supple without lymphadenopathy, JVD, or masses. LUNGS: Breath sounds equal, clear to auscultation bilaterally. No wheezes, and no crackles. No accessory muscle use. HEART: Regular rate and rhythm, normal S1 and S2 without murmur, rub or gallop. ABDOMEN: Soft, nontender, not distended, normoactive bowel sounds, no guarding, no rebound, MUSCULOSKELETAL: Normal range of motion at all joints. No bony deformities or tenderness. drainage in place UPPER EXTREMITIES: 2+ pulses, warm, well-perfused. No cyanosis. No clubbing. Cap refill <2 seconds. No peripheral edema. LOWER EXTREMITIES: 2+ pulses, warm, well-perfused. No calf tenderness. No peripheral edema. NEUROLOGICAL: Cranial nerves II-XII intact. Normal speech.gait not observed , no tremors , or astrexis PSYCHIATRIC: Cooperative. SKIN: Warm, dry, normal turgor, Laboratory Results - last 24 hr 11/25/18 11/25/18 05:30 05:30 WBC 8.9 RBC 2.90 L Hgb 11.2 L Hct 30.8 L D MCV 106.3 H MCH 38.7 H MCHC 36.4 H RDW 13.8 Plt Count 94 L D MPV 9.0 Absolute Neuts (auto) 6.8 Neutrophils % 75.8 Lymphocytes % 15.6 Monocytes % 8.3 Eosinophils % 0.1 Basophils % 0.2 Nucleated RBC % 0 Sodium 138 Potassium 3.5 Chloride 107 Carbon Dioxide 27 Anion Gap 4 L BUN 10 Creatinine 0.7 Creat Clearance w eGFR > 60 Random Glucose 117 H Calcium 7.7 L Phosphorus 2.7 Magnesium 1.8 Total Bilirubin 0.9 AST 30 ALT 15 Alkaline Phosphatase 35 L Total Protein 4.6 L Albumin 2.2 L Active Medications Generic Name Dose Route Start Last Admin Trade Name Freq PRN Reason Stop Dose Admin Acetaminophen 1,000 mg 11/23/18 12:54 11/24/18 19:53 Ofirmev Injection - IVPB 1,000 mg Q6H PRN Administration If narcotics are ineffective Amlodipine Besylate 10 mg 11/24/18 10:00 11/25/18 09:22 Norvasc - PO 10 mg DAILY [facility] Administration Chlordiazepoxide HCl 25 mg 11/25/18 09:42 Librium - PO TID PRN WITHDRAWAL(CONT SUBST) Folic Acid 1 mg 11/25/18 10:00 11/25/18 09:22 Folic Acid - PO 1 mg DAILY [facility] Administration Hydromorphone HCl 0 mg 11/25/18 10:06 Dilaudid Hire Car Driver - RAILROAD CAR LETTERER 11/26/18 12:50 RAILROAD CAR LETTERER [facility] Protocol Lactated Ringer's 1,000 mls @ 75 mls/hr 11/25/18 09:02 11/25/18 09:22 Lactated Ringers Solution IV 75 mls/hr ASDIR [facility] Administration Losartan Potassium 100 mg 11/24/18 10:00 11/25/18 09:21 Cozaar - PO 100 mg DAILY [facility] Administration Nicotine 7 mg 11/24/18 20:15 11/24/18 22:10 Nicoderm Patch - TD Not Given DAILY [facility] Ondansetron HCl 4 mg 11/23/18 12:48 Zofran Injection IVPUSH Q6H PRN NAUSEA AND/OR VOMITING Oxycodone HCl 10 mg 11/25/18 08:48 Roxicodone - PO Q4H PRN PAIN LEVEL 6-10 Oxycodone HCl 5 mg 11/25/18 08:48 Roxicodone - PO Q4H PRN PAIN LEVEL 1-5 Polyethylene Glycol 17 gm 11/25/18 10:45 Miralax (For Daily Use) - PO DAILY [facility] Senna/Docusate Sodium 1 tablet 11/25/18 22:00 Pericolace - PO HS [facility] Thiamine HCl 100 mg 11/25/18 10:00 11/25/18 09:21 Vitamin B1 - PO 100 mg DAILY [facility] Administration CBC, BMP 11/25/18 05:30 11/25/18 05:30 ASSESSMENT/PLAN: 63M s/p L3 laminectomy; L2 & L4 laminotomies; L3-L4 PLIF; L3-L4 posterior instrumentation; L3-L4 posterolateral arthrodesis; bone graft; bone marrow aspiration POD #0. # S/P L2, L3 ,L4 laminectomy * POD#2 , a febrile , * Pain control per surgery , DC RAILROAD CAR LETTERER Dilaudid , no NSAIDS * start oxycodon 5 and 10 PRN * IV fluids 75 cc/hr ringer lactate * NPO till pass flatus * keep bed flat but pt is refusing to stay flat was found on bed edge yesterday * Incentive spirometry * PT/OT when stable * Monitor in ICU , director of cardiac cath lab , BP monitor * ABX prophylaxis x2 doses * d/c Rivera catheter when patient ambulating comfortably. * f/u cbc, cmp, mag , phosphorous in AM * f/u drain output. * WBAT B/L LE. # Etoh Abuse /withdrawal * on libirium protocol * banana bag , folic acid , thiamin * libirium PRN * educated about quitting #HEME - Macrocytic anemia rochelleley due to alcohol abuse H/H 11.2/30.8 -Thrombocytopenia plt 94 * no active bleeding * monitor CBC daily * quit alcohol * thiamin and folic acid #HTN * resume home meds, lozartan and Amlodipine #FEN * F: RL 75 CC/hr * E monitor lytes * N: low sodium diet #Proph * DVTS : SCDs , TEDs * GI : no need for now #Dispo * monitor in ICU * Discharge planning: [facility] call for [facility]; We will continue to follow the patient. Thank you for this consultative opportunity. Visit type - Emergency Visit Emergency Visit: Yes ED Registration Date: 11/23/18 Care time: The patient presented to the Emergency Department on the above date and was hospitalized for further evaluation of their emergent condition. - New Patient This patient is new to me today: No - Critical Care Critical Care patient: Yes Total Critical Care Time (in minutes): 45 Critical Care Statement: The care of this patient involved high complexity decision making to prevent further life threatening deterioration of the patient 's condition and/or to evaluate & treat vital organ system(s) failure or risk of failure. - Discharge Referral Referred to [facility] No
[2018-11-25] MEDS: HYDROmorphone *PCA* 10MG/50ML DISP.SYRIN PCA SCH (10:46)
[2018-11-25] MEDS ORDERED: PT OWN MED DRAWER 7, Y5N ONE (10:49)
[2018-11-25] MEDS: NICOTINE 7 MG/24 HOURS TOPICAL PATCH TD SCH (10:50)
[2018-11-25 11:10] LABS: ANISOCYTOSIS 1+; MACROCYTOSIS 1+; PLATELET ESTIMATE DECREASED
[2018-11-25] MEDS: POLYETHYLENE GLYCOL 3350 119 GM BTL PO SCH (11:19)
--- NOTE | 2018-11-25 12:51 | PN ---
Teaching Attending Note Name of Resident: Josh Atkinson ATTENDING PHYSICIAN STATEMENT I saw and evaluated the patient. I reviewed the resident's note and discussed the case with the resident. I agree with the resident's findings and plan as documented. SUBJECTIVE: Pt seen and examined in the ICU. Still with pain. Denies nausea or vomiting. Tolerating PO. No fevers or chills. Denies shortness of breath or chest pain. OBJECTIVE: Vital Signs Period Temp Pulse Resp BP Sys/Canales Pulse Ox Last 24 Hr 98.2 F-99.6 F 64-87 14-18 113-139/57-81 93-95 Intake & Output 11/22/18 11/23/18 11/24/18 11/25/18 23:59 23:59 23:59 23:59 Intake Total 4250 3425 1772 Output Total 1950 2200 Balance 2300 1225 1772 Weight 79.1 kg 77.9 kg Gen: NAD at rest Heart: RRR Lung: decreased breath sounds at the bases Abd: soft, nontender Ext: no edema CBC, BMP 11/25/18 05:30 11/25/18 05:30 Active Medications Acetaminophen (Ofirmev Injection -) 1,000 mg IVPB Q6H PRN PRN Reason: If narcotics are ineffective Last Admin: 11/24/18 19:53 Dose: 1,000 mg Amlodipine Besylate (Norvasc -) 10 mg PO DAILY [facility] Last Admin: 11/25/18 09:22 Dose: 10 mg Chlordiazepoxide HCl (Librium -) 25 mg PO TID PRN PRN Reason: WITHDRAWAL(CONT SUBST) Folic Acid (Folic Acid -) 1 mg PO DAILY [facility] Last Admin: 11/25/18 09:22 Dose: 1 mg Hydromorphone HCl (Dilaudid Farmworker Field Crop -) 0 mg COMPUTER TECHNOLOGY TRAINER COMPUTER TECHNOLOGY TRAINER [facility]; Protocol Stop: 11/26/18 12:50 Last Admin: 11/25/18 10:46 Dose: Not Given Lactated Ringer's (Lactated Ringers Solution) 1,000 mls @ 75 mls/hr IV ASDIR [facility] Last Admin: 11/25/18 09:22 Dose: 75 mls/hr Losartan Potassium (Cozaar -) 100 mg PO DAILY [facility] Last Admin: 11/25/18 09:21 Dose: 100 mg Nicotine (Nicoderm Patch -) 7 mg TD DAILY [facility] Last Admin: 11/25/18 10:50 Dose: 7 mg Ondansetron HCl (Zofran Injection) 4 mg IVPUSH Q6H PRN PRN Reason: NAUSEA AND/OR VOMITING Oxycodone HCl (Roxicodone -) 10 mg PO Q4H PRN PRN Reason: PAIN LEVEL 6-10 Oxycodone HCl (Roxicodone -) 5 mg PO Q4H PRN PRN Reason: PAIN LEVEL 1-5 Polyethylene Glycol (Miralax (For Daily Use) -) 17 gm PO DAILY [facility] Last Admin: 11/25/18 11:19 Dose: 17 grams Senna/Docusate Sodium (Pericolace -) 1 tablet PO [facility] Thiamine HCl (Vitamin B1 -) 100 mg PO DAILY [facility] Last Admin: 11/25/18 09:21 Dose: 100 mg ASSESSMENT AND PLAN: Lumbar Spinal Stenosis s/p L2, L3, L4 Laminectomies/L3-L4 PLIF/Posterior Instrumentation HTN Alcohol Abuse - pain control - incentive spirometry - bowel regimen - monitor for withdrawal symptoms - PO as tolerated - positioning per surgery - DVT prophylaxis
[2018-11-25] MEDS: oxyCODONE HCL 5 MG TABLET PO PRN ×2 (13:40→22:30)
--- NOTE | 2018-11-25 14:20 | PN ---
Teaching Attending Note Name of Resident: Macrina Calero ATTENDING PHYSICIAN STATEMENT I saw and evaluated the patient. I reviewed the resident's note and discussed the case with the resident. I agree with the resident's findings and plan as documented. SUBJECTIVE: Patient is comfortable with no acute distress. in ICU. OBJECTIVE: Vital Signs Temperature 98.6 F 11/25/18 11:00 Pulse Rate 81 11/25/18 12:00 Respiratory Rate 18 11/25/18 12:00 Blood Pressure 129/62 11/25/18 12:00 O2 Sat by Pulse Oximetry (%) 93 L 11/25/18 09:48 Gen: NAD at rest Heart: RRR Lung: decreased breath sounds at the bases Abd: soft, nontender Ext: no edema CBCD WBC 8.9 K/mm3 (4.0-10.0) 11/25/18 05:30 RBC 2.90 M/mm3 (4.00-5.60) L 11/25/18 05:30 Hgb 11.2 GM/dL (11.7-16.9) L 11/25/18 05:30 Hct 30.8 % (35.4-49) L D 11/25/18 05:30 MCV 106.3 fl (80-96) H 11/25/18 05:30 MCHC 36.4 g/dl (32.0-35.9) H 11/25/18 05:30 RDW 13.8 % (11.9-15.9) 11/25/18 05:30 Plt Count 94 K/MM3 (134-434) L D 11/25/18 05:30 MPV 9.0 fl (7.5-11.1) 11/25/18 05:30 CMP Sodium 138 mmol/L (136-145) 11/25/18 05:30 Potassium 3.5 mmol/L (3.5-5.1) 11/25/18 05:30 Chloride 107 mmol/L (98-107) 11/25/18 05:30 Carbon Dioxide 27 mmol/L (21-32) 11/25/18 05:30 Anion Gap 4 MMOL/L (8-16) L 11/25/18 05:30 BUN 10 mg/dL (7-18) 11/25/18 05:30 Creatinine 0.7 mg/dL (0.55-1.3) 11/25/18 05:30 Creat Clearance w eGFR > 60 (>60) 11/25/18 05:30 Random Glucose 117 mg/dL (74-106) H 11/25/18 05:30 Calcium 7.7 mg/dL (8.5-10.1) L 11/25/18 05:30 Total Bilirubin 0.9 mg/dL (0.2-1) 11/25/18 05:30 AST 30 U/L (15-37) 11/25/18 05:30 ALT 15 U/L (13-61) 11/25/18 05:30 Alkaline Phosphatase 35 U/L (45-117) L 11/25/18 05:30 Total Protein 4.6 g/dl (6.4-8.2) L 11/25/18 05:30 Albumin 2.2 g/dl (3.4-5.0) L 11/25/18 05:30 Current Medications Generic Name Dose Route Start Last Admin Trade Name Freq PRN Reason Stop Dose Admin Acetaminophen 1,000 mg 11/23/18 12:54 11/24/18 19:53 Ofirmev Injection - IVPB 1,000 mg Q6H PRN Administration If narcotics are ineffective Amlodipine Besylate 10 mg 11/24/18 10:00 11/25/18 09:22 Norvasc - PO 10 mg DAILY [facility] Administration Chlordiazepoxide HCl 25 mg 11/25/18 09:42 Librium - PO TID PRN WITHDRAWAL(CONT SUBST) Folic Acid 1 mg 11/25/18 10:00 11/25/18 09:22 Folic Acid - PO 1 mg DAILY [facility] Administration Hydromorphone HCl 0 mg 11/25/18 10:06 11/25/18 10:46 Dilaudid Senior Mechanical Estimator - PRODUCT MANAGEMENT CONSULTANT 11/26/18 12:50 Not Given PRODUCT MANAGEMENT CONSULTANT [facility] Protocol Lactated Ringer's 1,000 mls @ 75 mls/hr 11/25/18 09:02 11/25/18 09:22 Lactated Ringers Solution IV 75 mls/hr ASDIR [facility] Administration Losartan Potassium 100 mg 11/24/18 10:00 11/25/18 09:21 Cozaar - PO 100 mg DAILY [facility] Administration Nicotine 7 mg 11/24/18 20:15 11/25/18 10:50 Nicoderm Patch - TD 7 mg DAILY [facility] Administration Ondansetron HCl 4 mg 11/23/18 12:48 Zofran Injection IVPUSH Q6H PRN NAUSEA AND/OR VOMITING Oxycodone HCl 10 mg 11/25/18 08:48 11/25/18 13:40 Roxicodone - PO 10 mg Q4H PRN Administration PAIN LEVEL 6-10 Oxycodone HCl 5 mg 11/25/18 08:48 Roxicodone - PO Q4H PRN PAIN LEVEL 1-5 Polyethylene Glycol 17 gm 11/25/18 10:45 11/25/18 11:19 Miralax (For Daily Use) - PO 17 grams DAILY [facility] Administration Senna/Docusate Sodium 1 tablet 11/25/18 22:00 Pericolace - PO HS [facility] Thiamine HCl 100 mg 11/25/18 10:00 11/25/18 09:21 Vitamin B1 - PO 100 mg DAILY [facility] Administration Home Medications Medication Instructions Recorded Amlodipine Besylate 5 mg PO DAILY 11/24/18 Diclofenac Sodium 1 tab PO DAILY 11/24/18 Gabapentin 300 mg PO BID 11/24/18 Losartan/Hydrochlorothiazide 1 tablet PO DAILY 11/24/18 [Losartan-Hctz 100-12.5 mg Tab] ASSESSMENT AND PLAN: Patient is a 63yo male s/p L3 laminectomy; L2 & L4 laminotomies; L3-L4 PLIF; L3- L4 posterior instrumentation; L3-L4 posterolateral arthrodesis; bone graft; bone marrow aspiration POD #2. #POD #2 s/p L3 laminectomy , with Hx of Lumbar disk disease, stenosis, and kyphosis; s/p lumbar surgery. On Dilaudid PRODUCT MANAGEMENT CONSULTANT , zofran prn, f/u ortho recs #ETOH abuse on Librium 25 mg PO TID PRN , on Thiamine , folic acid , continue to monitor for withdrawal #HTN cont home meds: Amlodipine and Losartan #DVT px: SCDs transfer to med-surg
--- NOTE | 2018-11-25 15:40 | PN ---
Physical Exam: SUBJECTIVE: Patient seen and examined at bedside. Per nurse, pt received dose of Librium overnight. No other acute events overnight. Pt does not want to be examined. OBJECTIVE: Vital Signs Temperature 98.6 F 11/25/18 11:00 Pulse Rate 81 11/25/18 12:00 Respiratory Rate 18 11/25/18 12:00 Blood Pressure 129/62 11/25/18 12:00 O2 Sat by Pulse Oximetry (%) 93 L 11/25/18 09:48 Pt declined physical exam. CBC, BMP 11/25/18 05:30 11/25/18 05:30 Active Medications Acetaminophen (Ofirmev Injection -) 1,000 mg IVPB Q6H PRN PRN Reason: If narcotics are ineffective Last Admin: 11/24/18 19:53 Dose: 1,000 mg Amlodipine Besylate (Norvasc -) 10 mg PO DAILY [facility] Last Admin: 11/25/18 09:22 Dose: 10 mg Chlordiazepoxide HCl (Librium -) 25 mg PO TID PRN PRN Reason: WITHDRAWAL(CONT SUBST) Folic Acid (Folic Acid -) 1 mg PO DAILY [facility] Last Admin: 11/25/18 09:22 Dose: 1 mg Hydromorphone HCl (Dilaudid Cnc Maintenance Mechanic -) 0 mg CRYSTALLIZER OPERATOR CRYSTALLIZER OPERATOR [facility]; Protocol Stop: 11/26/18 12:50 Last Admin: 11/25/18 10:46 Dose: Not Given Lactated Ringer's (Lactated Ringers Solution) 1,000 mls @ 75 mls/hr IV ASDIR [facility] Last Admin: 11/25/18 09:22 Dose: 75 mls/hr Losartan Potassium (Cozaar -) 100 mg PO DAILY [facility] Last Admin: 11/25/18 09:21 Dose: 100 mg Nicotine (Nicoderm Patch -) 7 mg TD DAILY [facility] Last Admin: 11/25/18 10:50 Dose: 7 mg Ondansetron HCl (Zofran Injection) 4 mg IVPUSH Q6H PRN PRN Reason: NAUSEA AND/OR VOMITING Oxycodone HCl (Roxicodone -) 10 mg PO Q4H PRN PRN Reason: PAIN LEVEL 6-10 Last Admin: 11/25/18 13:40 Dose: 10 mg Oxycodone HCl (Roxicodone -) 5 mg PO Q4H PRN PRN Reason: PAIN LEVEL 1-5 Polyethylene Glycol (Miralax (For Daily Use) -) 17 gm PO DAILY [facility] Last Admin: 11/25/18 11:19 Dose: 17 grams Senna/Docusate Sodium (Pericolace -) 1 tablet PO HS [facility] Thiamine HCl (Vitamin B1 -) 100 mg PO DAILY [facility] Last Admin: 11/25/18 09:21 Dose: 100 mg ASSESSMENT/PLAN: 63M s/p L3 laminectomy; L2 & L4 laminotomies; L3-L4 PLIF; L3-L4 posterior instrumentation; L3-L4 posterolateral arthrodesis; bone graft; bone marrow aspiration POD #2. #H/o Lumbar disk disease, stenosis, and kyphosis; s/p lumbar surgery, POD #2 -Zofran 4 mg IVP Q6H PRN for nausea -Oxycodone 10 mg PO Q4H, 5 mg PO Q4H PRN -IV Tylenol 1000 mg IVPB Q6H, if narcotics ineffective -PT/IS/dc dye when OOB -f/u ortho recs #ETOH abuse -Librium 25 mg PO TID PRN -Thiamine 100 mg PO QD, Folate 1 mg PO QD -Monitor for withdrawal symptoms #HTN Cont home meds: -Amlodipine 10 mg PO QD -Losartan 100 mg PO QD #Prophylaxis DVT- SCDs #FEN -LR @ 75 -recheck lytes in AM -Sodium-controlled diet dispo -cont to monitor on med-surg Visit type - Emergency Visit Emergency Visit: Yes ED Registration Date: 11/23/18 Care time: The patient presented to the Emergency Department on the above date and was hospitalized for further evaluation of their emergent condition. - New Patient This patient is new to me today: No - Critical Care Critical Care patient: No
[2018-11-25] MEDS ORDERED: MELATONIN 5 MG TABLETS PO ONE (19:22)
[2018-11-25] MEDS: SENNOSIDES/DOCUSATE COMBO (SENNA PLUS) TABLET (UD) PO SCH (22:31)
[2018-11-26 06:28] LABS: BASO % 0.1 % (0-2.0); EOS % 0.4 % (0-4.5); HEMATOCRIT 29.8 % (35.4-49); HEMOGLOBIN 10.8 GM/dL (11.7-16.9); LYMPH % 20.1 % (8-40); MCH 38.9 pg (25.7-33.7); MCHC 36.3 g/dl (32.0-35.9); MEAN CELL VOLUME 107.3 fl (80-96); MEAN PLT VOLUME 9.1 fl (7.5-11.1); MONO % 7.9 % (3.8-10.2); NEUT % 71.5 % (42.8-82.8); PLATELET COUNT 87 K/MM3 (134-434); RBC 2.77 M/mm3 (4.00-5.60); RDW 13.7 % (11.9-15.9); WHITE BLOOD COUNT 8.9 K/mm3 (4.0-10.0)
[2018-11-26 08:08] LABS: ALBUMIN 2.2 g/dl (3.4-5.0); ALK PHOS 42 U/L (45-117); ANION GAP 9 MMOL/L (8-16); BILIRUBIN,TOTAL 0.9 mg/dL (0.2-1); BLOOD UREA NITROGEN 9 mg/dL (7-18); CALCIUM 7.6 mg/dL (8.5-10.1); CHLORIDE 101 mmol/L (98-107); CO2 27 mmol/L (21-32); CREATININE 0.7 mg/dL (0.55-1.3); GLUCOSE,RANDOM 103 mg/dL (74-106); MAGNESIUM 1.4 mg/dL (1.8-2.4); PHOSPHOROUS 3.1 mg/dL (2.5-4.9); POTASSIUM 3.4 mmol/L (3.5-5.1); SGOT/AST 36 U/L (15-37); SGPT/ALT 19 U/L (13-61); SODIUM 137 mmol/L (136-145); TOT PROT 4.9 g/dl (6.4-8.2)
--- NOTE | 2018-11-26 09:52 | PN ---
Progress Note (short form) - Note Progress Note: POD #3 in ICU C/O pain spasm in the back only No leg symptoms Mental status Fully orientated No DeliriumTremens symptoms Did pass flatus Vitals OK Wound bandage dry Abd Soft Neuro at baseline ASSESS Doing well no alcohol dependance related problems PLAN bed rest until tomorrow PT mobilize continue med mx Pain mx
[2018-11-26] MEDS: THIAMINE HCL 100 MG TABLET (FP) PO SCH (09:59)
[2018-11-26] MEDS: FOLIC ACID 1 MG TABLET (FP) PO SCH (10:00)
[2018-11-26] MEDS: amLODIPine BESYLATE 10 MG TABLET (FP) PO SCH (10:00)
[2018-11-26] MEDS: POLYETHYLENE GLYCOL 3350 119 GM BTL PO SCH (10:01)
[2018-11-26] MEDS: LOSARTAN POTASSIUM 50 MG TABLET (FP) PO SCH (10:01)
[2018-11-26] MEDS: HYDROmorphone *PCA* 10MG/50ML DISP.SYRIN PCA SCH (10:02)
[2018-11-26] MEDS: oxyCODONE HCL 5 MG TABLET PO PRN (10:03)
--- NOTE | 2018-11-26 12:12 | PN ---
Teaching Attending Note Name of Resident: Alyson Nielsen ATTENDING PHYSICIAN STATEMENT I saw and evaluated the patient. I reviewed the resident's note and discussed the case with the resident. I agree with the resident's findings and plan as documented. SUBJECTIVE: Patient seen and examined in the ICU. Awake and alert. Reports pain is 5/10. Denies CP or SOB. Not tremulous. Intake & Output 11/23/18 11/24/18 11/25/18 11/26/18 23:59 23:59 23:59 23:59 Intake Total 4250 3425 3592 Output Total 1950 2200 1100 Balance 2300 1225 2492 Weight 174 lb 6.17 oz 171 lb 11.841 oz 171 lb Last Vital Signs Temp Pulse Resp BP Pulse Ox 98.8 F 82 21 H 128/64 95 11/26/18 10:00 11/26/18 10:00 11/26/18 10:00 11/26/18 10:00 11/25/18 22:00 Active Medications Acetaminophen (Ofirmev Injection -) 1,000 mg IVPB Q6H PRN PRN Reason: If narcotics are ineffective Last Admin: 11/24/18 19:53 Dose: 1,000 mg Amlodipine Besylate (Norvasc -) 10 mg PO DAILY [facility] Last Admin: 11/26/18 10:00 Dose: 10 mg Chlordiazepoxide HCl (Librium -) 25 mg PO TID PRN PRN Reason: WITHDRAWAL(CONT SUBST) Last Admin: 11/25/18 22:31 Dose: 25 mg Folic Acid (Folic Acid -) 1 mg PO DAILY [facility] Last Admin: 11/26/18 10:00 Dose: 1 mg Hydromorphone HCl (Dilaudid Material Control Manager -) 0 mg ONCOLOGY ADMIN ONCOLOGY ADMIN [facility]; Protocol Stop: 11/26/18 12:50 Last Admin: 11/26/18 10:02 Dose: Not Given Lactated Ringer's (Lactated Ringers Solution) 1,000 mls @ 75 mls/hr IV ASDIR [facility] Last Admin: 11/25/18 09:22 Dose: 75 mls/hr Ketorolac Tromethamine (Toradol Injection -) 30 mg IVPUSH Q8H-IV [facility] Stop: 12/01/18 09:59 Losartan Potassium (Cozaar -) 100 mg PO DAILY [facility] Last Admin: 11/26/18 10:01 Dose: 100 mg Nicotine (Nicoderm Patch -) 7 mg TD DAILY [facility] Last Admin: 11/25/18 10:50 Dose: 7 mg Ondansetron HCl (Zofran Injection) 4 mg IVPUSH Q6H PRN PRN Reason: NAUSEA AND/OR VOMITING Oxycodone HCl (Roxicodone -) 10 mg PO Q4H PRN PRN Reason: PAIN LEVEL 6-10 Last Admin: 11/26/18 10:03 Dose: 10 mg Oxycodone HCl (Roxicodone -) 5 mg PO Q4H PRN PRN Reason: PAIN LEVEL 1-5 Polyethylene Glycol (Miralax (For Daily Use) -) 17 gm PO DAILY [facility] Last Admin: 11/26/18 10:01 Dose: 17 grams Senna/Docusate Sodium (Pericolace -) 1 tablet PO HS [facility] Last Admin: 11/25/18 22:31 Dose: 1 tablet Thiamine HCl (Vitamin B1 -) 100 mg PO DAILY [facility] Last Admin: 11/26/18 09:59 Dose: 100 mg GENERAL: Awake, alert, and fully oriented, in no acute distress. HEAD: Normal with no signs of trauma. EYES: Pupils equal, round and reactive to light, extraocular movements intact, EARS, NOSE, THROAT: Ears normal, nares patent, oropharynx clear without exudates. Moist mucous membranes. NECK: Normal range of motion, supple without lymphadenopathy, JVD, or masses. LUNGS: Breath sounds equal, clear to auscultation bilaterally. No wheezes, and no crackles. No accessory muscle use. HEART: Regular rate and rhythm, normal S1 and S2 without murmur, rub or gallop. ABDOMEN: Soft, nontender, not distended, normoactive bowel sounds, no guarding, no rebound, MUSCULOSKELETAL: Normal range of motion at all joints. No bony deformities or tenderness. drainage in place UPPER EXTREMITIES: 2+ pulses, warm, well-perfused. No cyanosis. No clubbing. Cap refill <2 seconds. No peripheral edema. LOWER EXTREMITIES: 2+ pulses, warm, well-perfused. No calf tenderness. No peripheral edema. NEUROLOGICAL: Non-focal SKIN: Warm, dry, normal turgor Laboratory Results - last 24 hr 11/26/18 11/26/18 05:30 05:30 WBC 8.9 RBC 2.77 L Hgb 10.8 L Hct 29.8 L MCV 107.3 H MCH 38.9 H MCHC 36.3 H RDW 13.7 Plt Count 87 L MPV 9.1 Absolute Neuts (auto) 6.4 Neutrophils % 71.5 Lymphocytes % 20.1 D Monocytes % 7.9 Eosinophils % 0.4 D Basophils % 0.1 Nucleated RBC % 0 Sodium 137 Potassium 3.4 L Chloride 101 Carbon Dioxide 27 Anion Gap 9 BUN 9 Creatinine 0.7 Creat Clearance w eGFR > 60 Random Glucose 103 Calcium 7.6 L Phosphorus 3.1 Magnesium 1.4 L Total Bilirubin 0.9 AST 36 ALT 19 Alkaline Phosphatase 42 L Total Protein 4.9 L Albumin 2.2 L ASSESSMENT/PLAN: POD #3: L3 laminectomy; L2 & L4 laminotomies; L3-L4 PLIF; L3-L4 posterior instrumentation; L3-L4 posterolateral arthrodesis; bone graft; bone marrow aspiration POD ETOH abuse with recent use of ETOH HTN Pain control Incentive Spirometry O2 as needed Monitor Neuro exam Mechanical VTE prophylaxis Strict I & O PO as tolerated Monitor for withdrawal Floor Dr Spears
[2018-11-26] MEDS ORDERED: PT OWN MED DRAWER 7, Y5N ONE (12:14)
[2018-11-26] MEDS: KETOROLAC TROMETHAMINE 30 MG/1 ML VIAL IVPUSH SCH ×2 (12:15→17:47)
[2018-11-26] MEDS: NICOTINE 7 MG/24 HOURS TOPICAL PATCH TD SCH (12:20)
[2018-11-26] MEDS: LACTATED RINGERS SOLUTION 1,000 ML IV SCH (12:21)
--- NOTE | 2018-11-26 12:22 | PN ---
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 POD33, Lumbar discectomy. ON po meds. 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 Signed off.
--- NOTE | 2018-11-26 13:08 | PN ---
Progress Note (short form) - Note Progress Note: SUBJECTIVE: Patient seen and examined at bed side, some agitation over night treated with melatonin and libirium, complaints of local pain in surgery site; denies any fever, chills, N/V/D/C. Tolerating po intake. OBJECTIVE: Vital Signs Temperature 98.8 F 11/26/18 10:00 Pulse Rate 85 11/26/18 12:00 Respiratory Rate 22 H 11/26/18 12:00 Blood Pressure 137/65 11/26/18 12:00 O2 Sat by Pulse Oximetry (%) 94 L 11/26/18 10:00 General: Awake, alert, and fully oriented, in no acute distress Head: No signs of trauma Eyes: EOMI, sclera anicteric ENT: Moist mucus membranes Neck: Normal ROM, supple Lungs: Lungs clear, Normal breath sounds Cardio: Regular rhythm, S1 and S2 present Abdomen: Soft, nontender. No guarding, no rebound, no masses Extremities: Distal pulses present SKIN: Warm, Dry, normal turgor Neurologic: Cranial nerves II through XII grossly intact. Normal speech ASSESSMENT/PLAN: 63M s/p L3 laminectomy; L2 & L4 laminotomies; L3-L4 PLIF; L3-L4 posterior instrumentation; L3-L4 posterolateral arthrodesis; bone graft; bone marrow aspiration POD #3. 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 WBAT B/L LE. ETOH On libirium protocol Banana bag , folic acid , thiamine Libirium PRN Educated about quitting HEME - Macrocytic anemia likley due to alcohol abuse H/H 11.2/30.8 -Thrombocytopenia plt 94 No active bleeding Monitor CBC daily Quit alcohol Thiamine and folic acid HTN Home meds, losartan and amlodipine FEN Monitor electrolytes -Replete as needed -Calcium low at 7.6, but normal level when corrected for low albumin (2.2) Patient tolerating po intake IV fluids 75 cc/hr ringer lactate Prophylaxis DVT: SCDs , TEDs GI: no need for now Dispo Safe for transfer to the floor Discharge planning: [facility]; call for appointment; We will continue to follow the patient. Thank you for this consultative opportunity.
--- NOTE | 2018-11-26 14:41 | PN ---
Physical Exam: SUBJECTIVE: Patient seen and examined at bedside. Refusing to eat breakfast. Does not want to be bothered as he was previously examined by ICU team already. OBJECTIVE: Vital Signs Period Temp Pulse Resp BP Sys/Canales Pulse Ox Last 24 Hr 97.2 F-99.3 F 72-86 14-22 121-146/61-69 94-95 General: AAOx3. NAD. Resting comfortably. HEENT: AT/NC. EOMI. Moist mucus membranes. Unable to complete physical exam, pt declines rest of exam. CBC, BMP 11/26/18 05:30 11/26/18 05:30 Active Medications Acetaminophen (Ofirmev Injection -) 1,000 mg IVPB Q6H PRN PRN Reason: If narcotics are ineffective Last Admin: 11/24/18 19:53 Dose: 1,000 mg Amlodipine Besylate (Norvasc -) 10 mg PO DAILY [facility] Last Admin: 11/26/18 10:00 Dose: 10 mg Chlordiazepoxide HCl (Librium -) 25 mg PO TID PRN PRN Reason: WITHDRAWAL(CONT SUBST) Last Admin: 11/25/18 22:31 Dose: 25 mg Folic Acid (Folic Acid -) 1 mg PO DAILY [facility] Last Admin: 11/26/18 10:00 Dose: 1 mg Lactated Ringer's (Lactated Ringers Solution) 1,000 mls @ 75 mls/hr IV ASDIR [facility] Last Admin: 11/26/18 12:21 Dose: 75 mls/hr Ketorolac Tromethamine (Toradol Injection -) 30 mg IVPUSH Q8H-IV [facility] Stop: 12/01/18 09:59 Last Admin: 11/26/18 12:15 Dose: 30 mg Losartan Potassium (Cozaar -) 100 mg PO DAILY [facility] Last Admin: 11/26/18 10:01 Dose: 100 mg Nicotine (Nicoderm Patch -) 7 mg TD DAILY [facility] Last Admin: 11/26/18 12:20 Dose: 7 mg Ondansetron HCl (Zofran Injection) 4 mg IVPUSH Q6H PRN PRN Reason: NAUSEA AND/OR VOMITING Oxycodone HCl (Roxicodone -) 10 mg PO Q4H PRN PRN Reason: PAIN LEVEL 6-10 Last Admin: 11/26/18 10:03 Dose: 10 mg Oxycodone HCl (Roxicodone -) 5 mg PO Q4H PRN PRN Reason: PAIN LEVEL 1-5 Polyethylene Glycol (Miralax (For Daily Use) -) 17 gm PO DAILY [facility] Last Admin: 11/26/18 10:01 Dose: 17 grams Senna/Docusate Sodium (Pericolace -) 1 tablet PO HS [facility] Last Admin: 11/25/18 22:31 Dose: 1 tablet Thiamine HCl (Vitamin B1 -) 100 mg PO DAILY [facility] Last Admin: 11/26/18 09:59 Dose: 100 mg ASSESSMENT/PLAN: 63M s/p L3 laminectomy; L2 & L4 laminotomies; L3-L4 PLIF; L3-L4 posterior instrumentation; L3-L4 posterolateral arthrodesis; bone graft; bone marrow aspiration POD #2. #H/o Lumbar disk disease, stenosis, and kyphosis; s/p lumbar surgery, POD #2 -Zofran 4 mg IVP Q6H PRN for nausea -Oxycodone 10 mg PO Q4H, 5 mg PO Q4H PRN -PO Tylenol for pain -PT/IS/dc dye when OOB -Per ortho, bed rest until tomorrow #ETOH abuse -Librium 25 mg PO TID PRN -Thiamine 100 mg PO QD, Folate 1 mg PO QD -Monitor for withdrawal symptoms #HTN Cont home meds: -Amlodipine 10 mg PO QD -Losartan 100 mg PO QD #Prophylaxis DVT- SCDs #FEN -LR @ 75 -recheck lytes in AM -Sodium-controlled diet dispo -cont to monitor on med-surg Visit type - Emergency Visit Emergency Visit: Yes ED Registration Date: 11/23/18 Care time: The patient presented to the Emergency Department on the above date and was hospitalized for further evaluation of their emergent condition. - New Patient This patient is new to me today: No - Critical Care Critical Care patient: No
[2018-11-26] MEDS ORDERED: ACETAMINOPHEN 325 MG TABLET (FP) PO PRN (14:57)
--- NOTE | 2018-11-26 18:19 | PN ---
Teaching Attending Note Name of Resident: Macrina Calero ATTENDING PHYSICIAN STATEMENT I saw and evaluated the patient. I reviewed the resident's note and discussed the case with the resident. I agree with the resident's findings and plan as documented. SUBJECTIVE: patient is better with no acute distress. OBJECTIVE: Vital Signs Temperature 99.6 F 11/26/18 16:00 Pulse Rate 66 11/26/18 16:00 Respiratory Rate 14 11/26/18 16:00 Blood Pressure 117/62 11/26/18 16:00 O2 Sat by Pulse Oximetry (%) 94 L 11/26/18 10:00 Gen: NAD at rest Heart: RRR Lung: decreased breath sounds at the bases Abd: soft, nontender Ext: no edema CBCD WBC 8.9 K/mm3 (4.0-10.0) 11/26/18 05:30 RBC 2.77 M/mm3 (4.00-5.60) L 11/26/18 05:30 Hgb 10.8 GM/dL (11.7-16.9) L 11/26/18 05:30 Hct 29.8 % (35.4-49) L 11/26/18 05:30 MCV 107.3 fl (80-96) H 11/26/18 05:30 MCHC 36.3 g/dl (32.0-35.9) H 11/26/18 05:30 RDW 13.7 % (11.9-15.9) 11/26/18 05:30 Plt Count 87 K/MM3 (134-434) L 11/26/18 05:30 MPV 9.1 fl (7.5-11.1) 11/26/18 05:30 CMP Sodium 137 mmol/L (136-145) 11/26/18 05:30 Potassium 3.4 mmol/L (3.5-5.1) L 11/26/18 05:30 Chloride 101 mmol/L (98-107) 11/26/18 05:30 Carbon Dioxide 27 mmol/L (21-32) 11/26/18 05:30 Anion Gap 9 MMOL/L (8-16) 11/26/18 05:30 BUN 9 mg/dL (7-18) 11/26/18 05:30 Creatinine 0.7 mg/dL (0.55-1.3) 11/26/18 05:30 Creat Clearance w eGFR > 60 (>60) 11/26/18 05:30 Random Glucose 103 mg/dL (74-106) 11/26/18 05:30 Calcium 7.6 mg/dL (8.5-10.1) L 11/26/18 05:30 Total Bilirubin 0.9 mg/dL (0.2-1) 11/26/18 05:30 AST 36 U/L (15-37) 11/26/18 05:30 ALT 19 U/L (13-61) 11/26/18 05:30 Alkaline Phosphatase 42 U/L (45-117) L 11/26/18 05:30 Total Protein 4.9 g/dl (6.4-8.2) L 11/26/18 05:30 Albumin 2.2 g/dl (3.4-5.0) L 11/26/18 05:30 Current Medications Generic Name Dose Route Start Last Admin Trade Name Freq PRN Reason Stop Dose Admin Acetaminophen 650 mg 11/26/18 14:57 Tylenol - PO Q6H PRN PAIN LEVEL 6-10 Amlodipine Besylate 10 mg 11/24/18 10:00 11/26/18 10:00 Norvasc - PO 10 mg DAILY [facility] Administration Chlordiazepoxide HCl 25 mg 11/25/18 09:42 11/25/18 22:31 Librium - PO 25 mg TID PRN Administration WITHDRAWAL(CONT SUBST) Folic Acid 1 mg 11/25/18 10:00 11/26/18 10:00 Folic Acid - PO 1 mg DAILY [facility] Administration Lactated Ringer's 1,000 mls @ 75 mls/hr 11/25/18 09:02 11/26/18 12:21 Lactated Ringers Solution IV 75 mls/hr ASDIR [facility] Administration Ketorolac Tromethamine 30 mg 11/26/18 10:00 11/26/18 17:47 Toradol Injection - IVPUSH 12/01/18 09:59 30 mg Q8H-IV [facility] Administration Losartan Potassium 100 mg 11/24/18 10:00 11/26/18 10:01 Cozaar - PO 100 mg DAILY [facility] Administration Nicotine 7 mg 11/24/18 20:15 11/26/18 12:20 Nicoderm Patch - TD 7 mg DAILY [facility] Administration Ondansetron HCl 4 mg 11/23/18 12:48 Zofran Injection IVPUSH Q6H PRN NAUSEA AND/OR VOMITING Oxycodone HCl 10 mg 11/25/18 08:48 11/26/18 10:03 Roxicodone - PO 10 mg Q4H PRN Administration PAIN LEVEL 6-10 Oxycodone HCl 5 mg 11/25/18 08:48 Roxicodone - PO Q4H PRN PAIN LEVEL 1-5 Polyethylene Glycol 17 gm 11/25/18 10:45 11/26/18 10:01 Miralax (For Daily Use) - PO 17 grams DAILY [facility] Administration Senna/Docusate Sodium 1 tablet 11/25/18 22:00 11/25/18 22:31 Pericolace - PO 1 tablet HS [facility] Administration Thiamine HCl 100 mg 11/25/18 10:00 11/26/18 09:59 Vitamin B1 - PO 100 mg DAILY [facility] Administration Home Medications Medication Instructions Recorded Amlodipine Besylate 5 mg PO DAILY 11/24/18 Diclofenac Sodium 1 tab PO DAILY 11/24/18 Gabapentin 300 mg PO BID 11/24/18 Losartan/Hydrochlorothiazide 1 tablet PO DAILY 11/24/18 [Losartan-Hctz 100-12.5 mg Tab] ASSESSMENT AND PLAN: Patient is a 63yo male s/p L3 laminectomy; L2 & L4 laminotomies; L3-L4 PLIF; L3- L4 posterior instrumentation; L3-L4 posterolateral arthrodesis; bone graft; bone marrow aspiration POD #3. #POD #3 s/p L3 laminectomy , with Hx of Lumbar disk disease, stenosis, and kyphosis; s/p lumbar surgery. 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
[2018-11-26] MEDS: SENNOSIDES/DOCUSATE COMBO (SENNA PLUS) TABLET (UD) PO SCH (22:28)
[2018-11-27] MEDS: LACTATED RINGERS SOLUTION 1,000 ML IV SCH (02:11)
[2018-11-27] MEDS: KETOROLAC TROMETHAMINE 30 MG/1 ML VIAL IVPUSH SCH ×4 (03:54→17:18)
[2018-11-27 07:30] LABS: BASO % 0.5 % (0-2.0); EOS % 1.1 % (0-4.5); HEMATOCRIT 26.2 % (35.4-49); HEMOGLOBIN 9.5 GM/dL (11.7-16.9); LYMPH % 13.3 % (8-40); MCH 38.5 pg (25.7-33.7); MCHC 36.1 g/dl (32.0-35.9); MEAN CELL VOLUME 106.4 fl (80-96); MONO % 10.1 % (3.8-10.2); PLATELET COUNT 97 K/MM3 (134-434); RBC 2.46 M/mm3 (4.00-5.60); RDW 13.6 % (11.9-15.9); WHITE BLOOD COUNT 7.3 K/mm3 (4.0-10.0)
[2018-11-27 08:03] LABS: ALK PHOS 46 U/L (45-117); ANION GAP 6 MMOL/L (8-16); BILIRUBIN,TOTAL 0.8 mg/dL (0.2-1); BLOOD UREA NITROGEN 14 mg/dL (7-18); CALCIUM 7.8 mg/dL (8.5-10.1); CHLORIDE 103 mmol/L (98-107); CO2 27 mmol/L (21-32); CREATININE 0.8 mg/dL (0.55-1.3); GLUCOSE,RANDOM 97 mg/dL (74-106); MAGNESIUM 1.5 mg/dL (1.8-2.4); POTASSIUM 3.5 mmol/L (3.5-5.1); SGOT/AST 40 U/L (15-37); SGPT/ALT 23 U/L (13-61); SODIUM 136 mmol/L (136-145); TOT PROT 4.6 g/dl (6.4-8.2)
--- NOTE | 2018-11-27 08:25 | PN ---
Teaching Attending Note Name of Resident: Macrina Calero ATTENDING PHYSICIAN STATEMENT I saw and evaluated the patient. I reviewed the resident's note and discussed the case with the resident. I agree with the resident's findings and plan as documented. SUBJECTIVE: Patient is feeling better with no acute distress, no shortness of breath. physical therapy on the case, patient is doing better. OBJECTIVE: Vital Signs Temperature 98.9 F 11/27/18 05:23 Pulse Rate 74 11/27/18 05:23 Respiratory Rate 20 11/27/18 05:23 Blood Pressure 148/95 11/27/18 05:23 O2 Sat by Pulse Oximetry (%) 97 11/26/18 22:34 Gen: NAD at rest Heart: RRR Lung: decreased breath sounds at the bases Abd: soft, nontender Ext: no edema CBCD WBC 7.3 K/mm3 (4.0-10.0) 11/27/18 06:30 RBC 2.46 M/mm3 (4.00-5.60) L 11/27/18 06:30 Hgb 9.5 GM/dL (11.7-16.9) L 11/27/18 06:30 Hct 26.2 % (35.4-49) L 11/27/18 06:30 MCV 106.4 fl (80-96) H 11/27/18 06:30 MCHC 36.1 g/dl (32.0-35.9) H 11/27/18 06:30 RDW 13.6 % (11.9-15.9) 11/27/18 06:30 Plt Count 97 K/MM3 (134-434) L 11/27/18 06:30 MPV 9.0 fl (7.5-11.1) 11/27/18 06:30 CMP Sodium 136 mmol/L (136-145) 11/27/18 06:30 Potassium 3.5 mmol/L (3.5-5.1) 11/27/18 06:30 Chloride 103 mmol/L (98-107) 11/27/18 06:30 Carbon Dioxide 27 mmol/L (21-32) 11/27/18 06:30 Anion Gap 6 MMOL/L (8-16) L 11/27/18 06:30 BUN 14 mg/dL (7-18) 11/27/18 06:30 Creatinine 0.8 mg/dL (0.55-1.3) 11/27/18 06:30 Creat Clearance w eGFR > 60 (>60) 11/27/18 06:30 Random Glucose 97 mg/dL (74-106) 11/27/18 06:30 Calcium 7.8 mg/dL (8.5-10.1) L 11/27/18 06:30 Total Bilirubin 0.8 mg/dL (0.2-1) 11/27/18 06:30 AST 40 U/L (15-37) H 11/27/18 06:30 ALT 23 U/L (13-61) 11/27/18 06:30 Alkaline Phosphatase 46 U/L (45-117) 11/27/18 06:30 Total Protein 4.6 g/dl (6.4-8.2) L 11/27/18 06:30 Albumin 2.0 g/dl (3.4-5.0) L 11/27/18 06:30 Current Medications Generic Name Dose Route Start Last Admin Trade Name Freq PRN Reason Stop Dose Admin Acetaminophen 650 mg 11/26/18 14:57 Tylenol - PO Q6H PRN PAIN LEVEL 6-10 Amlodipine Besylate 10 mg 11/24/18 10:00 11/26/18 10:00 Norvasc - PO 10 mg DAILY [facility] Administration Chlordiazepoxide HCl 25 mg 11/25/18 09:42 11/25/18 22:31 Librium - PO 25 mg TID PRN Administration WITHDRAWAL(CONT SUBST) Folic Acid 1 mg 11/25/18 10:00 11/26/18 10:00 Folic Acid - PO 1 mg DAILY [facility] Administration Lactated Ringer's 1,000 mls @ 75 mls/hr 11/25/18 09:02 11/27/18 02:11 Lactated Ringers Solution IV 75 mls/hr ASDIR [facility] Administration Ketorolac Tromethamine 30 mg 11/26/18 10:00 11/27/18 04:03 Toradol Injection - IVPUSH 12/01/18 09:59 30 mg Q8H-IV [facility]LEX[facility] Administration Losartan Potassium 100 mg 11/24/18 10:00 11/26/18 10:01 Cozaar - PO 100 mg DAILY [facility] Administration Nicotine 7 mg 11/24/18 20:15 11/26/18 12:20 Nicoderm Patch - TD 7 mg DAILY [facility] Administration Ondansetron HCl 4 mg 11/23/18 12:48 Zofran Injection IVPUSH Q6H PRN NAUSEA AND/OR VOMITING Oxycodone HCl 10 mg 11/25/18 08:48 11/26/18 10:03 Roxicodone - PO 10 mg Q4H PRN Administration PAIN LEVEL 6-10 Oxycodone HCl 5 mg 11/25/18 08:48 Roxicodone - PO Q4H PRN PAIN LEVEL 1-5 Polyethylene Glycol 17 gm 11/25/18 10:45 11/26/18 10:01 Miralax (For Daily Use) - PO 17 grams DAILY [facility] Administration Senna/Docusate Sodium 1 tablet 11/25/18 22:00 11/26/18 22:28 Pericolace - PO 1 tablet HS [facility] Administration Thiamine HCl 100 mg 11/25/18 10:00 11/26/18 09:59 Vitamin B1 - PO 100 mg DAILY [facility] Administration Home Medications Medication Instructions Recorded Amlodipine Besylate 5 mg PO DAILY 11/24/18 Diclofenac Sodium 1 tab PO DAILY 11/24/18 Gabapentin 300 mg PO BID 11/24/18 Losartan/Hydrochlorothiazide 1 tablet PO DAILY 11/24/18 [Losartan-Hctz 100-12.5 mg Tab] ASSESSMENT AND PLAN: Patient is a 63yo male s/p L3 laminectomy; L2 & L4 laminotomies; L3-L4 PLIF; L3- L4 posterior instrumentation; L3-L4 posterolateral arthrodesis; bone graft; bone marrow aspiration POD #3. #POD #5 s/p L3 laminectomy , with Hx of Lumbar disk disease, stenosis, and kyphosis; s/p lumbar surgery. 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 rehab placement waiting for approval.
[2018-11-27] MEDS ORDERED: MAGNESIUM OXIDE 400 MG TABLET (FP) PO ONE (09:30)
[2018-11-27] MEDS ORDERED: PT OWN MED DRAWER 7, Y5N ONE (10:23)
[2018-11-27] MEDS: LOSARTAN POTASSIUM 50 MG TABLET (FP) PO SCH (10:26)
[2018-11-27] MEDS: FOLIC ACID 1 MG TABLET (FP) PO SCH (10:26)
[2018-11-27] MEDS: POLYETHYLENE GLYCOL 3350 119 GM BTL PO SCH (10:27)
[2018-11-27] MEDS: amLODIPine BESYLATE 10 MG TABLET (FP) PO SCH (10:28)
[2018-11-27] MEDS: THIAMINE HCL 100 MG TABLET (FP) PO SCH (10:28)
[2018-11-27] MEDS: NICOTINE 7 MG/24 HOURS TOPICAL PATCH TD SCH (10:34)
[2018-11-27] MEDS: oxyCODONE HCL 5 MG TABLET PO PRN (11:18)
--- NOTE | 2018-11-27 14:31 | PN ---
Physical Exam: SUBJECTIVE: Patient seen and examined at bedside. No acute events overnight. Denies cp, sob, abd pain, urinary/bowel symptoms. OBJECTIVE: Vital Signs Temperature 97.7 F 11/27/18 08:20 Pulse Rate 65 11/27/18 08:20 Respiratory Rate 18 11/27/18 08:20 Blood Pressure 125/58 L 11/27/18 08:20 O2 Sat by Pulse Oximetry (%) 97 11/26/18 22:34 GENERAL: AAOx3. NAD. Comfortable. Cooperative today. HEENT: AT/NC. EDUARDO. MMM. NECK: Trachea midline, full range of motion, supple. LUNGS: CTA B/L. No wheezes/crackles noted. HEART: RRR. Normal S1, S2. No murmurs noted. ABDOMEN: Soft, NT/ND. +BS in all 4 Q's. EXTREMITIES: 2+ pulses, warm, well-perfused, no edema. NEUROLOGICAL: 5/5 muscle strength in b/l u/l extremities. 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 MSK: Dressing in lumbar area c/d/i. SKIN: Warm, dry, normal turgor, no rashes or lesions noted. CBC, BMP 11/27/18 06:30 11/27/18 06:30 Active Medications Acetaminophen (Tylenol -) 650 mg PO Q6H PRN PRN Reason: PAIN LEVEL 6-10 Amlodipine Besylate (Norvasc -) 10 mg PO DAILY [facility] Last Admin: 11/27/18 10:28 Dose: 10 mg Chlordiazepoxide HCl (Librium -) 25 mg PO TID PRN PRN Reason: WITHDRAWAL(CONT SUBST) Last Admin: 11/25/18 22:31 Dose: 25 mg Folic Acid (Folic Acid -) 1 mg PO DAILY [facility] Last Admin: 11/27/18 10:26 Dose: 1 mg Lactated Ringer's (Lactated Ringers Solution) 1,000 mls @ 75 mls/hr IV ASDIR [facility] Last Admin: 11/27/18 02:11 Dose: 75 mls/hr Ketorolac Tromethamine (Toradol Injection -) 30 mg IVPUSH Q8H-IV ALEXEI Stop: 12/01/18 09:59 Last Admin: 11/27/18 10:29 Dose: 30 mg Losartan Potassium (Cozaar -) 100 mg PO DAILY [facility] Last Admin: 11/27/18 10:26 Dose: 100 mg Nicotine (Nicoderm Patch -) 7 mg TD DAILY [facility] Last Admin: 11/27/18 10:34 Dose: 7 mg Ondansetron HCl (Zofran Injection) 4 mg IVPUSH Q6H PRN PRN Reason: NAUSEA AND/OR VOMITING Oxycodone HCl (Roxicodone -) 10 mg PO Q4H PRN PRN Reason: PAIN LEVEL 6-10 Last Admin: 11/27/18 11:18 Dose: 10 mg Oxycodone HCl (Roxicodone -) 5 mg PO Q4H PRN PRN Reason: PAIN LEVEL 1-5 Polyethylene Glycol (Miralax (For Daily Use) -) 17 gm PO DAILY [facility] Last Admin: 11/27/18 10:27 Dose: 17 grams Senna/Docusate Sodium (Pericolace -) 1 tablet PO HS [facility] Last Admin: 11/26/18 22:28 Dose: 1 tablet Thiamine HCl (Vitamin B1 -) 100 mg PO DAILY [facility] Last Admin: 11/27/18 10:28 Dose: 100 mg ASSESSMENT/PLAN: 63M s/p L3 laminectomy; L2 & L4 laminotomies; L3-L4 PLIF; L3-L4 posterior instrumentation; L3-L4 posterolateral arthrodesis; bone graft; bone marrow aspiration POD #4. #H/o Lumbar disk disease, stenosis, and kyphosis; s/p lumbar surgery, POD #4 -Zofran 4 mg IVP Q6H PRN for nausea -Oxycodone 10 mg PO Q4H, 5 mg PO Q4H PRN -PO Tylenol for pain -PT/IS/OOB/WBAT #ETOH abuse -Librium 25 mg PO TID PRN, last PRN dose was given on Friday, likely not in withdrawal -Thiamine 100 mg PO QD, Folate 1 mg PO QD -Monitor for withdrawal symptoms #HTN Cont home meds: -Amlodipine 10 mg PO QD -Losartan 100 mg PO QD #Prophylaxis DVT- SCDs #FEN -LR @ 75 -recheck lytes in AM -Sodium-controlled diet dispo -cont to monitor on med-surg -discussed with CM for PT rehab placement after discharge. Pt currently lives alone and would benefit from continued rehab. Awaiting authorization. f/u with CM. Visit type - Emergency Visit Emergency Visit: Yes ED Registration Date: 11/23/18 Care time: The patient presented to the Emergency Department on the above date and was hospitalized for further evaluation of their emergent condition. - New Patient This patient is new to me today: No - Critical Care Critical Care patient: No
--- NOTE | 2018-11-27 16:15 | PN ---
Progress Note (short form) - Note Progress Note: Sitting in chair and is comfortable Walked in the hallway no headache Mild incisional pain only no leg pain General medical status all ok no evidence of delirium tremens Rivera in situ to be removed ASSESS Doing well PLAN Continue pain mx PT mobilize FWBAT D/C planning once more independent
[2018-11-27] MEDS: SENNOSIDES/DOCUSATE COMBO (SENNA PLUS) TABLET (UD) PO SCH (21:23)
[2018-11-28] MEDS: KETOROLAC TROMETHAMINE 30 MG/1 ML VIAL IVPUSH SCH ×3 (01:26→17:41)
--- NOTE | 2018-11-28 03:03 | PN ---
Progress Note (short form) - Note Progress Note: Patient feels better with no cute distress, no shortness of breath. Vital Signs Temperature 98.5 F 11/28/18 06:00 Pulse Rate 65 11/28/18 06:00 Respiratory Rate 18 11/28/18 06:00 Blood Pressure 134/68 11/28/18 06:00 O2 Sat by Pulse Oximetry (%) 96 11/27/18 21:00 Gen: NAD at rest Heart: RRR Lung: decreased breath sounds at the bases Abd: soft, nontender Ext: no edema CBCD WBC 7.3 K/mm3 (4.0-10.0) 11/27/18 06:30 RBC 2.46 M/mm3 (4.00-5.60) L 11/27/18 06:30 Hgb 9.5 GM/dL (11.7-16.9) L 11/27/18 06:30 Hct 26.2 % (35.4-49) L 11/27/18 06:30 MCV 106.4 fl (80-96) H 11/27/18 06:30 MCHC 36.1 g/dl (32.0-35.9) H 11/27/18 06:30 RDW 13.6 % (11.9-15.9) 11/27/18 06:30 Plt Count 97 K/MM3 (134-434) L 11/27/18 06:30 MPV 9.0 fl (7.5-11.1) 11/27/18 06:30 CMP Sodium 136 mmol/L (136-145) 11/27/18 06:30 Potassium 3.5 mmol/L (3.5-5.1) 11/27/18 06:30 Chloride 103 mmol/L (98-107) 11/27/18 06:30 Carbon Dioxide 27 mmol/L (21-32) 11/27/18 06:30 Anion Gap 6 MMOL/L (8-16) L 11/27/18 06:30 BUN 14 mg/dL (7-18) 11/27/18 06:30 Creatinine 0.8 mg/dL (0.55-1.3) 11/27/18 06:30 Creat Clearance w eGFR > 60 (>60) 11/27/18 06:30 Random Glucose 97 mg/dL (74-106) 11/27/18 06:30 Calcium 7.8 mg/dL (8.5-10.1) L 11/27/18 06:30 Total Bilirubin 0.8 mg/dL (0.2-1) 11/27/18 06:30 AST 40 U/L (15-37) H 11/27/18 06:30 ALT 23 U/L (13-61) 11/27/18 06:30 Alkaline Phosphatase 46 U/L (45-117) 11/27/18 06:30 Total Protein 4.6 g/dl (6.4-8.2) L 11/27/18 06:30 Albumin 2.0 g/dl (3.4-5.0) L 11/27/18 06:30 Current Medications Generic Name Dose Route Start Last Admin Trade Name Freq PRN Reason Stop Dose Admin Acetaminophen 650 mg 11/26/18 14:57 Tylenol - PO Q6H PRN PAIN LEVEL 6-10 Amlodipine Besylate 10 mg 11/24/18 10:00 11/27/18 10:28 Norvasc - PO 10 mg DAILY ALEXEI Administration Folic Acid 1 mg 11/25/18 10:00 11/27/18 10:26 Folic Acid - PO 1 mg DAILY ALEXEI Administration Ketorolac Tromethamine 30 mg 11/26/18 10:00 11/28/18 01:26 Toradol Injection - IVPUSH 12/01/18 09:59 30 mg Q8H-IV ALEXEI Administration Losartan Potassium 100 mg 11/24/18 10:00 11/27/18 10:26 Cozaar - PO 100 mg DAILY ALEXEI Administration Nicotine 7 mg 11/24/18 20:15 11/27/18 10:34 Nicoderm Patch - TD 7 mg DAILY ALEXEI Administration Ondansetron HCl 4 mg 11/23/18 12:48 Zofran Injection IVPUSH Q6H PRN NAUSEA AND/OR VOMITING Oxycodone HCl 10 mg 11/25/18 08:48 11/27/18 11:18 Roxicodone - PO 10 mg Q4H PRN Administration PAIN LEVEL 6-10 Oxycodone HCl 5 mg 11/25/18 08:48 Roxicodone - PO Q4H PRN PAIN LEVEL 1-5 Polyethylene Glycol 17 gm 11/25/18 10:45 11/27/18 10:27 Miralax (For Daily Use) - PO 17 grams DAILY ALEXEI Administration Senna/Docusate Sodium 1 tablet 11/25/18 22:00 11/27/18 21:23 Pericolace - PO 1 tablet HS ALEXEI Administration Thiamine HCl 100 mg 11/25/18 10:00 11/27/18 10:28 Vitamin B1 - PO 100 mg DAILY ALEXEI Administration Home Medications Medication Instructions Recorded Amlodipine Besylate 5 mg PO DAILY 11/24/18 Diclofenac Sodium 1 tab PO DAILY 11/24/18 Gabapentin 300 mg PO BID 11/24/18 Losartan/Hydrochlorothiazide 1 tablet PO DAILY 11/24/18 [Losartan-Hctz 100-12.5 mg Tab] A/p: Patient is a 63yo male s/p L3 laminectomy; L2 & L4 laminotomies; L3-L4 PLIF; L3- L4 posterior instrumentation; L3-L4 posterolateral arthrodesis; bone graft; bone marrow aspiration POD #3. #POD #6 s/p L3 laminectomy , with Hx of Lumbar disk disease, stenosis, and kyphosis; s/p lumbar surgery. 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 #ETOH abuse on Librium 25 mg PO TID PRN , on Thiamine , folic acid , continue to monitor for withdrawal #HTN cont home meds: Amlodipine and Losartan #DVT px: SCDs once stable, dc planning. rehab placement waiting for approval. Visit type - Emergency Visit Emergency Visit: Yes ED Registration Date: 11/23/18 Care time: The patient presented to the Emergency Department on the above date and was hospitalized for further evaluation of their emergent condition. - New Patient This patient is new to me today: No - Critical Care Critical Care patient: No - Discharge Referral Referred to [facility] Med P.C.: No
[2018-11-28] MEDS: amLODIPine BESYLATE 10 MG TABLET (FP) PO SCH (09:29)
[2018-11-28] MEDS: LOSARTAN POTASSIUM 50 MG TABLET (FP) PO SCH (09:29)
[2018-11-28] MEDS: FOLIC ACID 1 MG TABLET (FP) PO SCH (09:29)
[2018-11-28] MEDS: POLYETHYLENE GLYCOL 3350 119 GM BTL PO SCH (09:30)
[2018-11-28] MEDS: NICOTINE 7 MG/24 HOURS TOPICAL PATCH TD SCH (09:33)
[2018-11-28] MEDS: THIAMINE HCL 100 MG TABLET (FP) PO SCH (10:18)
--- NOTE | 2018-11-28 14:12 | PN ---
Progress Note (short form) - Note Progress Note: POD#5 Doing well Weakness of the thigh PLAN D/C home with crutches tomorrow ?Rogerio
[2018-11-28 17:05] VITALS: BMI 26.6
[2018-11-28] MEDS: SENNOSIDES/DOCUSATE COMBO (SENNA PLUS) TABLET (UD) PO SCH (21:42)
[2018-11-29] MEDS: KETOROLAC TROMETHAMINE 30 MG/1 ML VIAL IVPUSH SCH (03:08)
[2018-11-29] MEDS ORDERED: ACETAMINOPHEN 325 MG TABLET (FP) PO PRN (08:40)
[2018-11-29] MEDS ORDERED: ONDANSETRON 4 MG/2 ML VIAL IVPUSH PRN (08:40)
[2018-11-29] MEDS ORDERED: PT OWN MED DRAWER 7, Y5N ONE (09:01)
--- NOTE | 2018-11-29 09:26 | PN ---
Physical Exam: SUBJECTIVE: Patient seen and examined at bedside. OBJECTIVE: Vital Signs Temperature 98.9 F 11/29/18 07:00 Pulse Rate 74 11/29/18 07:00 Respiratory Rate 20 11/29/18 07:00 Blood Pressure 141/76 11/29/18 07:00 O2 Sat by Pulse Oximetry (%) 95 11/28/18 21:00 GENERAL: AAOx3. NAD. Comfortable. Cooperative today. HEENT: AT/NC. EDUARDO. MMM. NECK: Trachea midline, full range of motion, supple. LUNGS: CTA B/L. No wheezes/crackles noted. HEART: RRR. Normal S1, S2. No murmurs noted. ABDOMEN: Soft, NT/ND. +BS in all 4 Q's. EXTREMITIES: 2+ pulses, warm, well-perfused, no edema. NEUROLOGICAL: 5/5 muscle strength in b/l u/l extremities. 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 MSK: Dressing in lumbar area c/d/i. SKIN: Warm, dry, normal turgor, no rashes or lesions noted. Active Medications Acetaminophen (Tylenol -) 650 mg PO Q6H PRN PRN Reason: PAIN LEVEL 6-10 Amlodipine Besylate (Norvasc -) 10 mg PO DAILY [facility] Last Admin: 11/29/18 09:05 Dose: 10 mg Folic Acid (Folic Acid -) 1 mg PO DAILY [facility] Last Admin: 11/29/18 09:06 Dose: 1 mg Ketorolac Tromethamine (Toradol Injection -) 30 mg IVPUSH Q8H-IV [facility] Stop: 12/01/18 09:59 Last Admin: 11/29/18 09:07 Dose: 30 mg Losartan Potassium (Cozaar -) 100 mg PO DAILY [facility] Last Admin: 11/29/18 09:05 Dose: 100 mg Nicotine (Nicoderm Patch -) 7 mg TD DAILY [facility] Last Admin: 11/29/18 09:06 Dose: Not Given Ondansetron HCl (Zofran Injection) 4 mg IVPUSH Q6H PRN PRN Reason: NAUSEA AND/OR VOMITING Polyethylene Glycol (Miralax (For Daily Use) -) 17 gm PO DAILY [facility] Last Admin: 11/29/18 09:08 Dose: Not Given Senna/Docusate Sodium (Pericolace -) 1 tablet PO [facility] Thiamine HCl (Vitamin B1 -) 100 mg PO DAILY [facility] Last Admin: 11/29/18 09:06 Dose: 100 mg ASSESSMENT/PLAN: 63M s/p L3 laminectomy; L2 & L4 laminotomies; L3-L4 PLIF; L3-L4 posterior instrumentation; L3-L4 posterolateral arthrodesis; bone graft; bone marrow aspiration POD #4. #H/o Lumbar disk disease, stenosis, and kyphosis; s/p lumbar surgery, POD #4 -Zofran 4 mg IVP Q6H PRN for nausea -Oxycodone 10 mg PO Q4H, 5 mg PO Q4H PRN -PO Tylenol for pain -PT/IS/OOB/WBAT #ETOH abuse -Librium 25 mg PO TID PRN, last PRN dose was given on Friday, likely not in withdrawal -Thiamine 100 mg PO QD, Folate 1 mg PO QD -Monitor for withdrawal symptoms #HTN Cont home meds: -Amlodipine 10 mg PO QD -Losartan 100 mg PO QD #Prophylaxis DVT- SCDs #FEN -LR @ 75 -recheck lytes in AM -Sodium-controlled diet dispo -cont to monitor on med-surg -discussed with CM for PT rehab placement after discharge. Pt currently lives alone and would benefit from continued rehab. Awaiting authorization. f/u with [facility].
[2018-11-29] MEDS ORDERED: NICOTINE 7 MG/24 HOURS TOPICAL PATCH TD SCH (10:00)
[2018-11-29] MEDS ORDERED: KETOROLAC TROMETHAMINE 30 MG/1 ML VIAL IVPUSH SCH (10:00)
[2018-11-29] MEDS ORDERED: FOLIC ACID 1 MG TABLET (FP) PO SCH (10:00)
[2018-11-29] MEDS ORDERED: amLODIPine BESYLATE 10 MG TABLET (FP) PO SCH (10:00)
[2018-11-29] MEDS ORDERED: POLYETHYLENE GLYCOL 3350 119 GM BTL PO SCH (10:00)
[2018-11-29] MEDS ORDERED: THIAMINE HCL 100 MG TABLET (FP) PO SCH (10:00)
[2018-11-29] MEDS ORDERED: LOSARTAN POTASSIUM 50 MG TABLET (FP) PO SCH (10:00)
--- NOTE | 2018-11-29 12:10 | DS ---
Physical Exam: SUBJECTIVE: Patient seen and examined at bedside. No acute events overnight. OBJECTIVE: Vital Signs Temperature 98.0 F 11/29/18 10:00 Pulse Rate 69 11/29/18 10:00 Respiratory Rate 18 11/29/18 10:00 Blood Pressure 129/66 11/29/18 10:00 O2 Sat by Pulse Oximetry (%) 95 11/28/18 21:00 PHYSICAL EXAM GENERAL: AAOx3. NAD. Comfortable. Cooperative today. HEENT: AT/NC. EDUARDO. MMM. NECK: Trachea midline, full range of motion, supple. LUNGS: CTA B/L. No wheezes/crackles noted. HEART: RRR. Normal S1, S2. No murmurs noted. ABDOMEN: Soft, NT/ND. +BS in all 4 Q's. EXTREMITIES: 2+ pulses, warm, well-perfused, no edema. NEUROLOGICAL: 5/5 muscle strength in b/l u/l extremities. 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 MSK: Dressing in lumbar area c/d/i. SKIN: Warm, dry, normal turgor, no rashes or lesions noted. LABS HOSPITAL COURSE: Date of Admission:11/23/18 63M w/ pmhx of lumbar disc disease, alcohol abuse, tobacco, use, HTN, now s/p L3 laminectomy; L2 & L4 laminotomies; L3-L4 PLIF; L3-L4 posterior instrumentation; L3-L4 posterolateral arthrodesis; bone graft; bone marrow aspiration. Neurosurgery uneventful with no complications. Pt was monitored post -op and seen by PT. Additionally, due to history of alcohol abuse, pt placed on Librium PRN for alcohol withdrawal symptoms. Throughout hospital stay, pt symptoms improved. Pt was discharged home and advised to continue outpatient PT with follow up with ortho this week. Pt also recommended to take Toradol for pain, Folic acid, Thiamine, and to increase Amlodipine to 10 mg daily. Date of Discharge: 11/29/18 Minutes to complete discharge: 40 Discharge Summary Reason For Visit: MID CERVICAL DISORDER, POSTERIOR LUMBAR INTERBODY Condition: Improved - Instructions Diet, Activity, Other Instructions: You were seen in the hospital for a lumbar spine surgery due to lumbar stenosis (narrowing of your lumbar spine). After your surgery, your were monitored in the hospital. Additionally, you were given Librium to prevent alcohol withdrawal symptoms. Throughout your hospital stay, your symptoms improved. You are being discharged home. MEDICAL RECOMMENDATIONS Please stop taking Amlodipine 5 mg. You may start taking Amlodipine 10 mg once daily by mouth. Please take Thiamine 100 mg once daily and Folic Acid 1 mg once daily by mouth. You may take Toradol 10 mg once every 6 hours for pain. Please continue taking the rest of your home meds as directed. REFERRALS Please follow up with Dr. Alvarado on 12/04/2018 at [facility] office ; call for appointment; . Please follow up with your primary care physician within 1 week. If you experience persistent shortness of breath, chest pain, tingling or numbness in your extremities, problems walking, urinary/bowel incontinence, worsening tremors, seizures, or other associated symptoms, please proceed to your nearest emergency room immediately. Referrals: Juwan Alvarado MD [Staff Physician] - 12/03/18 Disposition: HOME - Home Medications Comprehensive Discharge Medication List: Ambulatory Orders Gabapentin 300 mg PO BID 11/24/18 Losartan/Hydrochlorothiazide [Losartan-Hctz 100-12.5 mg Tab] 1 tablet PO DAILY 11/24/18 Amlodipine Besylate [Norvasc -] 10 mg PO DAILY #30 tablet 11/29/18 Folic Acid - 1 mg PO DAILY #30 tablet 11/29/18 Ketorolac Tromethamine [Toradol] 10 mg PO Q6H #20 tablet 11/29/18 Thiamine HCl [Vitamin B1 -] 100 mg PO DAILY #30 tablet 11/29/18 This patient is new to me today: No Emergency Visit: Yes ED Registration Date: 11/23/18 Care time: The patient presented to the Emergency Department on the above date and was hospitalized for further evaluation of their emergent condition. Critical Care patient: No - Discharge Referral Referred to [facility] Med P.C.: No
[2018-11-29 13:50] VITALS: BP 129/66; PULSE 69; TEMP 98
--- NOTE | 2018-11-29 14:40 | PN ---
Teaching Attending Note Name of Resident: Macrina Calero ATTENDING PHYSICIAN STATEMENT I saw and evaluated the patient. I reviewed the resident's note and discussed the case with the resident. I agree with the resident's findings and plan as documented. SUBJECTIVE: OBJECTIVE: aao3 s1 and s2 RRR abdomen soft non-tender lungs CTA good air entry ASSESSMENT AND PLAN: Patient is a 63yo male s/p L3 laminectomy; L2 & L4 laminotomies; L3-L4 PLIF; L3- L4 posterior instrumentation; L3-L4 posterolateral arthrodesis; bone graft; bone marrow aspiration POD #3. #POD #6 s/p L3 laminectomy , with Hx of Lumbar disk disease, stenosis, and kyphosis; s/p lumbar surgery. 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 #ETOH abuse on Librium 25 mg PO TID PRN , on Thiamine , folic acid , continue to monitor for withdrawal #HTN cont home meds: Amlodipine and Losartan #DVT px: SCDs once stable, dc planning. rehab placement waiting for approval.
[2018-11-29] MEDS ORDERED: SENNOSIDES/DOCUSATE COMBO (SENNA PLUS) TABLET (UD) PO SCH (22:00)
== END 2018-11-29 15:20 | disposition home or self-care (01) | DRG 457 ==
LOC: JSAMEDAYSX 06:17 → JICU 15:32 → J8W 11-26 18:07
PROVIDERS: ADMIT Orthopaedic Surgery Orthopaedic Surgery of the Spine; ATTEND Internal Medicine
PROC: 0ST20ZZ Resection of Lumbar Vertebral Disc, Open Approach (ICD-10-PCS; 2018-11-23)
PROC: 00Q20ZZ Repair Dura Mater, Open Approach (ICD-10-PCS; 2018-11-23)
PROC: 07DR3ZZ Extraction of Iliac Bone Marrow, Percutaneous Approach (ICD-10-PCS; 2018-11-23)
PROC: 4A1004G Monitoring of Central Nervous Electrical Activity, Intraoperative, Open Approach (ICD-10-PCS; 2018-11-23)
PROC: B01BZZZ Fluoroscopy of Spinal Cord (ICD-10-PCS; 2018-11-23)
PROC: 0SG00AJ Fusion of Lumbar Vertebral Joint with Interbody Fusion Device, Posterior Approach, Anterior Column, Open Approach (ICD-10-PCS; principal; 2018-11-23 08:00)
DX: M40.209 Unspecified kyphosis, site unspecified (principal); G97.41 Accidental puncture or laceration of dura during a procedure; F10.239 Alcohol dependence with withdrawal, unspecified; M51.26 Other intervertebral disc displacement, lumbar region; M48.061 Spinal stenosis, lumbar region without neurogenic claudication; I10 Essential (primary) hypertension; D53.9 Nutritional anemia, unspecified; D69.6 Thrombocytopenia, unspecified; Y83.8 Other surgical procedures as the cause of abnormal reaction of the patient, or of later complication, without mention of misadventure at the time of the procedure
CPT/HCPCS: 36415; 71045-TC-FY; 76000-TC-FY; 80048; 80053; 83735; 84100; 85025; 85027; 86850; 86900; 86901; 88304-TC; 93005; 93010; 94760; 97116-GP; 97162-GP; J0131; J1644; J7030

== ENCOUNTER 2020-02-07 08:00 | Inpatient (IN) | payer BC ==
[2020-05-19 12:15] VITALS: BMI 26.6
[2020-05-22] MEDS ORDERED: HEPARIN NA (PORCINE) 5,000 UNITS/ML 1ML VIAL ONE ×2 (14:14→14:53)
[2020-05-22] MEDS ORDERED: BENZOIN/ALOE VERA/STORAX/TOLU 58 ML BOTTLE ONE (14:14)
[2020-05-22] MEDS ORDERED: BUPIVACAINE HCL/PF 0.25% (2.5MG/ML) 10 ML VIAL ONE (14:14)
[2020-05-22] MEDS ORDERED: BUPIVACAINE LIPOSOME/PF (EXPAREL) 266 MG/20 ML VIAL ONE (14:14)
[2020-05-22] MEDS ORDERED: THROMBIN (BOVINE) 5,000 UNIT VIAL TP ONE (14:15)
[2020-05-22] MEDS ORDERED: ROPIVACAINE HCL 0.5% 30ML VIAL ONE (14:30)
[2020-05-22] MEDS ORDERED: PROPOFOL 20 ML ONE ×14 (14:55→19:06)
[2020-05-22] MEDS ORDERED: ROCURONIUM BROMIDE 50 MG/5 ML SYRINGE ONE ×2 (15:00→16:53)
[2020-05-22] MEDS ORDERED: SUCCINYLCHOLINE CHLORIDE 200 MG/10 ML SYRINGE ONE (15:00)
[2020-05-22] MEDS ORDERED: VANCOMYCIN 1,000 MG VIAL (RESTRICTED TO ID ONLY) IVPB ONE (15:30)
[2020-05-22] MEDS ORDERED: ceFAZolin SODIUM 1 GM VIAL IVPB ONE (15:30)
[2020-05-22] MEDS ORDERED: fentaNYL CITRATE 250 MCG/5 ML VIAL ONE ×4 (15:34→19:15)
[2020-05-22] MEDS ORDERED: MIDAZOLAM HCL 2 MG/2 ML SINGLE DOSE VIAL ONE (15:35)
[2020-05-22] MEDS ORDERED: BUPIVACAINE LIPOSOME/PF (EXPAREL) 266 MG/20 ML VIAL NR ONE (17:07)
[2020-05-22] MEDS ORDERED: BUPIVACAINE HCL/PF 0.5% (5MG/ML) 10 ML VIAL IJ ONE (17:09)
[2020-05-22] MEDS ORDERED: TRANEXAMIC ACID 1000 MG/10 ML VIAL ONE (17:19)
[2020-05-22] MEDS ORDERED: hydrALAZINE HCL 20 MG/ML VIAL ONE (18:14)
[2020-05-22] MEDS ORDERED: PROMETHAZINE HCL 25 MG/1 ML VIAL IVPUSH PRN (18:22)
[2020-05-22] MEDS ORDERED: oxyCODONE HCL 5 MG TABLET PO PRN (18:22)
[2020-05-22] MEDS ORDERED: ONDANSETRON 4 MG/2 ML VIAL IVPUSH PRN ×2 (18:22→20:35)
--- NOTE | 2020-05-22 19:09 | PN ---
Progress Note (short form) - Note Progress Note: 64M s/p removal of hardware L3-L4, inspection of fusion mass, L3-S1 laminectomies, L4-L5 & L5-S1 PLIF, L3-S1 posterior instrumented spinal fusion POD #0. -Admit to ICU post-op. -Pain control: NO NSAID's; patient received intra-op paraspinal muscle block w/Exparel & marcaine; OK to use APPLICATION COORDINATOR if needed; transition to oral analgesia post-op. -DVT PPx: -Mechanical only: PABLO's, SCD's. -Chemical: None. -Incentive spirometry q15 min. -NPO until flatus. -Rivera care; d/c when ambulating. -Ancef post-op x 3 doses. -PT/OT/Rehab, OOB. -WBAT B/L LE. -No bending, lifting (>5 lbs), or twisting for 9-12 months. -Care per ICU & medical hospitalist teams. -Discharge planning: Howard rivera; [facility]; call for appointment; . -Will follow. Iain Alvarado MD (Orthopaedic Surgery).
--- NOTE | 2020-05-22 19:15 | OP ---
Operative Note - Note: Operative Date: 05/22/20 Pre-Operative Diagnosis: 1. L4-L5 Intervertebral disc disorder with associated radiculopathy. 2. Severe L4-L5 spinal stenosis. 3. Segmental instability L5-S1 Operation: 1. Removal of hardware L3-L4. 2. Inspection of fusion mass. 3. L3- S1 laminectomies. 4. L4-L5 & L5-S1 PLIF. 5. L3-S1 posterior instrumented spinal fusion. 6. Bone autograft. 7. Bone allograft Findings: Severe spinal stenosis, epineural fibrosis L3-L4, L4-L5 Implants: Screws: Precision Spine Reform. Cages: RTI Fortilink Tetrafuse. L4- L5: 15mm. L5-S1: 14mm Post-Operative Diagnosis: Same as Pre-op Surgeon: Iain Alvarado Cut Off Tender Glass: Juwan Alvarado Anesthesiologist/BAR MACHINE OPERATOR: Fritz Rubi Anesthesia: General Specimens Removed: L4-L5, L5-S1 cage Estimated Blood Loss (mls): 1,700 Drains & Tubes with Location: 1 x deep HemoVac Blood Volume Replaced (mls): 875 (Cell Saver) Fluid Volume Replaced (mls): 3,000 (Crystalloid) Operative Report Dictated: Yes
[2020-05-22] MEDS ORDERED: ceFAZolin SODIUM 1 GM VIAL ONE (20:07)
[2020-05-22] MEDS ORDERED: PHENYLEPHRINE HCL 10 MG/1 ML SINGLE DOSE VIAL ONE (20:15)
[2020-05-22] MEDS ORDERED: ONDANSETRON 4 MG/2 ML VIAL IVPUSH ONE (22:30)
[2020-05-22] MEDS: LACTATED RINGERS SOLUTION 1,000 ML IV SCH (23:11)
[2020-05-22] MEDS: ACETAMINOPHEN 1000 MG/100 ML VIAL (NON FORMULARY) IVPB SCH (23:47)
--- NOTE | 2020-05-23 00:24 | CONSULT ---
Consultation: REQUESTING PROVIDER: Dr. Alvarado CONSULT REQUEST: We have been asked to medically evaluate this patient for post- operative management. HISTORY OF PRESENT ILLNESS: Pt is a 64 yo M with PMHx of HTN, previous cervical spine surgery, and possible COPD hx admitted s/p removal of hardware L3-L4, inspection of fusion mass, L3-S1 laminectomies, L4-L5 & L5-S1 PLIF, L3-S1 posterior instrumented spinal fusion. Pt is now POD #0 after surgery earlier today, admitted for monitoring in the ICU. Upon admission, pt does endorses mild 4/10 pain (s/p intra-op paraspinal muscle block with Exparel and Marcaine). He denies subjective fevers, chills, SOB, chest pain, palpitation, abdominal pain, nausea, vomiting, or diarrhea. Additional hx in paper chart showing long-standing hx of moderate to severe back pain. Pt history is limited as he is drowsy post-operatively. REVIEW OF SYSTEMS: As per HPI. PHYSICAL EXAMINATION Vital Signs - 24 hr 05/22/20 05/22/20 05/22/20 11:02 20:40 20:45 Temperature 98.6 F 98.4 F Pulse Rate 81 112 H 104 H Respiratory 20 15 12 Rate Blood Pressure 148/73 80/61 L 110/77 O2 Sat by Pulse 95 98 97 Oximetry (%) 05/22/20 05/22/20 05/22/20 21:00 21:15 21:20 Temperature Pulse Rate 98 H 94 H 93 H Respiratory 14 14 16 Rate Blood Pressure 111/69 130/84 128/80 O2 Sat by Pulse 100 100 100 Oximetry (%) 05/22/20 05/22/20 05/22/20 21:30 21:45 22:00 Temperature Pulse Rate 90 91 H 92 H Respiratory 17 21 H 18 Rate Blood Pressure 137/90 119/68 113/78 O2 Sat by Pulse 100 96 96 Oximetry (%) 05/22/20 05/22/20 05/22/20 22:15 22:30 22:45 Temperature 97.7 F Pulse Rate 90 91 H 90 Respiratory 18 18 18 Rate Blood Pressure 99/60 97/50 L 97/70 O2 Sat by Pulse 96 96 97 Oximetry (%) GENERAL: drowsy but arousable, in no acute distress. HEAD: NCAT EYES: PERRLA, extraocular movements intact. EARS, NOSE, THROAT: Moist mucous membranes. Oropharynx without exudates. NECK: Neck supple without LAD or masses. LUNGS: Breath sounds equal, CTAB. No wheezes, and no crackles. No accessory muscle use. HEART: Regular rate and rhythm, normal S1 and S2 without murmur, rub or gallop. ABDOMEN: Soft, nontender, not distended abdomen; bowel sounds auscultated. MUSCULOSKELETAL: Unable to assess ROM as pt is drowsy. No bony deformities or tenderness. UPPER EXTREMITIES: 2+ pulses, warm, well-perfused. Cap refill <2 seconds. No peripheral edema. LOWER EXTREMITIES: 2+ pulses, warm, well-perfused. No calf tenderness. No peripheral edema. NEUROLOGICAL: Sensation grossly intact. Normal speech. Gait not assessed. PSYCHIATRIC: Cooperative. Good eye contact. Appropriate mood and affect. SKIN: Warm; lumbar surgical site bandaged clean, dry; Davol drain with sanguineous output Laboratory Results - last 24 hr 05/22/20 10:10 Blood Type O POSITIVE Antibody Screen Negative Active Medications Generic Name Dose Route Start Last Admin Trade Name Freq PRN Reason Stop Dose Admin Acetaminophen 1,000 mg 05/23/20 03:00 Ofirmev Injection - IVPB 05/23/20 19:01 Q8H [facility] Fentanyl 50 mcg 05/22/20 18:22 Sublimaze Injection - IVPUSH [id number] PRN PAIN-PACU ORDER X 4 DOSES ONLY Lactated Ringer's 1,000 mls @ 125 mls/hr 05/22/20 20:45 Lactated Ringers Solution IV ASDIR [facility] Ondansetron HCl 4 mg 05/22/20 20:35 Zofran Injection IVPUSH Q6H PRN NAUSEA AND/OR VOMITING Oxycodone HCl 10 mg 05/22/20 18:22 Roxicodone - PO 05/23/20 18:21 Q4H PRN PAIN LEVEL 6-10 Promethazine HCl 12.5 mg 05/22/20 18:22 Phenergan Injection - IVPUSH Q6H PRN NAUSEA-FOR RESCUE AFTER 15 MIN Valsartan 320 mg 05/23/20 10:00 Diovan - PO DAILY [facility] ASSESSMENT/PLAN: Pt is a 64 yo M with PMHx of HTN, previous cervical spine surgery, and possible COPD hx admitted s/p removal of hardware L3-L4, inspection of fusion mass, L3-S1 laminectomies, L4-L5 & L5-S1 PLIF, L3-S1 posterior instrumented spinal fusion; admitted for post-operative monitoring. POD #0. Neurologic Pt drowsy but arousable post-op; AOx3; no neurological concerns at this time Pulmonary Saturating well; no respiratory distress -Incentive spirometer q15 minutes -Monitor for any changes in O2 requirements Cardiovascular History of HTN - Valsartan 320 mg PO daily MSK s/p removal of hardware L3-L4, inspection of fusion mass, L3-S1 laminectomies, L4-L5 & L5-S1 PLIF, L3-S1 posterior instrumented spinal fusion - Pain control with IV Tylenol prn for mild pain; oxycodone prn for moderate to severe pain. NO NSAIDs per orthopedic surgery - Physical Therapy consult FEN -Hydration with LR -Follow BMP; replete lytes prn -NPO until passing flatus Prophylaxis -SCDs bilateral lower extremities LTD -Davol drain 05/22 Dispo: Will follow in the ICU. Thank you for this consultative opportunity. Visit type - Emergency Visit Emergency Visit: Yes ED Registration Date: 05/22/20 Care time: The patient presented to the Emergency Department on the above date and was hospitalized for further evaluation of their emergent condition. - New Patient This patient is new to me today: Yes Date on this admission: 05/23/20 - Critical Care Critical Care patient: Yes Total Critical Care Time (in minutes): 37 Critical Care Statement: The care of this patient involved high complexity decision making to prevent further life threatening deterioration of the patient's condition and/or to evaluate & treat vital organ system(s) failure or risk of failure. ATTENDING PHYSICIAN STATEMENT I saw and evaluated the patient. I reviewed the resident's note and discussed the case with the resident. I agree with the resident's findings and plan as documented. SUBJECTIVE: OBJECTIVE: ASSESSMENT AND PLAN:
[2020-05-23] MEDS ORDERED: ACETAMINOPHEN 1000 MG/100 ML VIAL (NON FORMULARY) IVPB SCH (03:00)
[2020-05-23 06:29] LABS: HEMATOCRIT 37.7 % (35.4-49); HEMOGLOBIN 12.8 GM/dL (11.7-16.9); MCH 38.3 pg (25.7-33.7); MEAN CELL VOLUME 112.6 fl (80-96); MEAN PLT VOLUME 9.1 fl (7.5-11.1); PLATELET COUNT 107 K/MM3 (134-434); RBC 3.35 M/mm3 (4.00-5.60); RDW 14.2 % (11.9-15.9)
[2020-05-23 06:54] LABS: BLOOD UREA NITROGEN 31.2 mg/dL (7-18); CALCIUM 7.9 mg/dL (8.5-10.1); CREATININE 1.5 mg/dL (0.55-1.3); POTASSIUM 4.9 mmol/L (3.5-5.1)
[2020-05-23] MEDS: ACETAMINOPHEN 1000 MG/100 ML VIAL (NON FORMULARY) IVPB SCH ×2 (09:00→15:45)
[2020-05-23] MEDS ORDERED: PATIENT'S OWN MEDICATION (NON-FORMULARY) (Telmisartan [Telmisartan] 80 MG) PO SCH (10:00)
[2020-05-23] MEDS ORDERED: VALSARTAN 160 MG TABLET (UD) PO SCH (10:00)
--- NOTE | 2020-05-23 10:23 | OP ---
DATE OF OPERATION: 05/22/2020 SURGEON: Iain Alvarado MD ELECTRONIC PREPRESS OPERATOR: Juwan Alvarado MD PREOPERATIVE DIAGNOSIS: Severe spinal stenosis adjacent level to previous L3-L4 fusion with severe L4-L5 stenosis and associated radiculopathy and segmental instability. POSTOPERATIVE DIAGNOSIS: Severe spinal stenosis adjacent level to previous L3- L4 fusion with severe L4-L5 stenosis and associated radiculopathy and segmental instability. OPERATIVE PROCEDURE: 1. Removal of previous pedicle screw instrumentation. (92600) 2. Inspection of fusion mass. (46136) 3. Laminectomy and facetectomies L4, bilateral. (71514-50-21) 4. Laminectomy and facetectomies L5, bilateral. (03852-33-17) 5. Revision laminectomy and facetectomies L3, bilateral. (99022-85-76) 6. Posterior lumbar interbody fusion and posterolateral arthrodesis L4-L5. ( 48239-81) 7. Posterior lumbar interbody fusion and posterolateral arthrodesis L5-S1. ( 91130-80) 8. Placement transpedicular screws with dillon fixation L3, L4, L5, S1, bilaterally. (86471-36) 9. L3-L4 posterolateral arthrodesis. (65674) 10. Deformity correction; mormon of lordosis. (50085) 11. Bone marrow aspirate, posterior ilium. (58188) 12. Morselized bone autograft. (08327) 13. Bone allograft. (37669) 14. Use of biplane fluoroscopy and intraoperative neuromonitoring. (66099-37) OPERATION INDICATIONS: Patient indicated for decompression of the L4-L5 level, which revealed the presence on MR imaging of severe spinal stenosis in keeping with his previous history. The problem was associated segmental instability symptomatology of axial back pain, and this was due to the severe facet arthropathy of L4-L5 and L5-S1. A disk prolapse at L4-L5 and L5-S1 was noted, but without any canal or neural foraminal compromise. OPERATION DETAILS: The patient is brought in the operating room, correctly identified, placed prone on King table. All bony areas were padded appropriately. The intraoperative neuromonitoring device is inserted. Patient was catheterized. The belly was free, and all bony prominences including the eyes were checked on, and the table was tilted at about 6 degrees anti-Trendelenburg. The skin was prepped Betadine scrub solution, wiped off with alcohol, and DuraPrep appeared. A window drape was applied. The old incision was opened. Dissection was taken through skin and subcutaneous tissue to the tips of the spinous processes. A subperiosteal dissection was performed throughout from L4-L5 and S1, and additionally, once the rods had been identified, the soft tissue was dissected off the rods using unipolar cautery, the rods removed. The mass was then inspected and found to be solidly fused. The problem here was the severe stenosis in a stuck-down adherent soft tissue bed. Using great care, working from below from L5 and L4, the lamina of L5 was removed with no difficulty. The lamina of L4 was scarred with significant amount of scar tissue. This was removed using Leksell rongeurs, Kerrison up-cuts. Then working from above, below, the superficial layers of fibrous tissue were removed off the actual theca. The theca was almost exposed in this area. Using a sharp curet, the bony landmarks of the inferior lamina of L5 and then the inferior lamina of L4 were identified clearly. The undersurface of L2 was identified as well, and along the lateral reyes of the vertebral canal, the soft tissue was disconnected off the bone using the sharp curet. This enabled us to safely osteotomize the lateral reyes, which included the inferior facet as well as the midsection of the pars interarticularis. This bone was imploded inwards, achieving an enormous amount of bone for bone graft purposes and clearing the entire canal. This required meticulous dissection. It took a significant period of time, but there was no dural tear, no dural injury, and no neuromonitoring abnormalities throughout this part of the procedure, and the theca was completely freed, seeing all nerve roots from L3 right down to S1 exiting out both left and right-hand side. The foramina readily noted and the nerve roots exiting through them facilitated this complete decompression. Once this had been performed, the theca was retracted from left to right at L4-L5 and L5-S1 in identical manner, each one done sequentially and separately. Nerve root retractor placed around the dura, provided the theca adequate exposure. The bipolar Bovie was utilized for epidural veins. Using an 11-blade, the annulus was incised and disks removed using binu and appropriate pituitary rongeurs to empty the disk space completely of disk material. This was sent to the lab for histopathology. Using a serrated curet, the endplates superiorly and inferiorly at each level, that is L4-L5 and L5-S1, were appreciated. The shaving at L4-L5 was to size 14 and size 15 cage inserted after the interbody space was packed with autologous bone graft that was harvested from the posterior elements and milled in the [employer]. The measurement of the cage at L5-S1 was that of 14, and verification of the cages on x-ray revealed excellent seating and opening of the interbody space, and therefore indirectly the neural foramina. Each disk space was packed with bone graft prior to the insertion of either cage. The cage was solidly seated. It sunk deeply into the interdisk space. They were press fitted into position; that is measured to size 13 and seated to size 14 at L5-S1 and shaved to size 14 and a size 15 cage inserted. Once this had been achieved, the left ilium was identified. A Jamshidi needle was placed in diploe of the bone bed, and aspiration of 60 mL of marrow was then handed to the stem cell team, and this was spun down for the CD34 mesenchymal stem cells, and then ultimately mixed with an allograft biologic complex and compound accordingly. Once this had been performed, the pedicle screws of L4 and L5 were inserted by utilization of lateral fluoroscopic x-ray for the pedicles. The mediolateral dimensions were readily noted at the starting point of each pedicle; that is the junction of the superior facet and the transverse process. The L4- L5 dura sank into the bone bed under guidance of x-ray, no complications. Each screw that was seated from L3 right down to S1 measured 45 x 7.5 screws. Solid fixation achieved through every single screw. Each screw was measured with intraoperative neuromonitoring, found to be well above the safe levels. In fact, most revealed readings above 20. Two of them revealed readings at about 16 mA. The rods were contoured and fixed onto the tulips with the appropriate caps. The torque device finally tightened the screws completely. The bone graft compensate, which was a mixture of the autologous bone expanded with allograft cellular matrix combined with the mesenchymal stem cells and appropriate proteinaceous material of the PRP component of the actual stem cell harvest was impacted into the intertransverse process plane from L3 to S1. This was packed solidly into position. The wounds were thoroughly lavaged. Final motors revealed excellent motor function to the lower extremities. The main cement throughout the operation was the right arm and hand, which revealed difficulties in terms of getting readings in the nerves in the arm. The position of the arm was checked repeatedly throughout. We could not identify any cause for some neural deficits as outlined above. At the end of the procedure, the wounds were thoroughly lavaged. The wounds were closed after the muscle was trimmed, removing the necrotic material appropriately. The fascia was closed with 1 Vicryl, subcutaneous 1 and 2-0 Vicryl, skin 3-0 Monocryl with Steri-Strips, and drainage large Hemovac subfascial x1. No complications. Extremely difficult procedure, but the operation went well. Difficult because of the stuck-down dura which was freed completely by the end of the procedure. Patient will be nursed in the ICU. MD CANDIS Gordillo/[id number] MTDD
--- NOTE | 2020-05-23 10:55 | PN ---
HC Provider Note Provider Note: Anesthesia Post Op Note Pt s/p GA for multi-level spinal fusion Pt awake alert denies n/v, no puritis, urinating on his own po pain meds controlling pain well VSS no apparent anesthesia complications Manuel Hyman.
--- NOTE | 2020-05-23 12:06 | PN ---
Progress Note (short form) - Note Progress Note: 64M s/p removal of hardware L3-L4, inspection of fusion mass, L3-S1 laminectomies, L4-L5 & L5-S1 PLIF, L3-S1 posterior instrumented spinal fusion POD #1. Pain well controlled. No acute events overnight. Pt. denies overnight history of headaches, chest pain, shortness of breath, nausea, vomiting, chills, & sweats. (+) Rivera; (-) Flatus; (-) BM. Abdomen soft, mildly distended, non tender. All labs, vitals reviewed. PE: AAOx3, NAD. L-Spine: Dressing C/D/I; drain intact. B/L LE Motor & Sensory: Intact. 64M s/p removal of hardware L3-L4, inspection of fusion mass, L3-S1 laminectomies, L4-L5 & L5-S1 PLIF, L3-S1 posterior instrumented spinal fusion POD #1. -Pain control. -DVT PPx: -Mechanical only: PABLO's, SCD's. -Chemical: None. -Incentive spirometry q15 min. -Advance diet as tolerated. -Rivera care; d/c when comfortably ambulating. -PT/OT/Rehab, OOB. -WBAT B/L LE. -No bending, lifting (>5 lbs), or twisting for 9-12 months. -Care per medical hospitalist team. -Discharge planning: OK to downgrade to floor this afternoon. -Will follow. Iain Alvarado MD (Orthopaedic Surgery).
--- NOTE | 2020-05-23 14:22 | PN ---
Teaching Attending Note Name of Resident: Donna Elena ATTENDING PHYSICIAN STATEMENT I saw and evaluated the patient. I reviewed the resident's note and discussed the case with the resident. I agree with the resident's findings and plan as documented. SUBJECTIVE: Patient seen and examined in the ICU. Awake and alert. Pain seems adequately controlled. No CP or SOB. Intake & Output 05/20/20 05/21/20 05/22/20 05/23/20 23:59 23:59 23:59 23:59 Intake Total 4475 1024 Output Total 2245 970 Balance 2230 54 Last Vital Signs Temp Pulse Resp BP Pulse Ox 98.7 F 71 18 134/62 95 05/23/20 10:00 05/23/20 10:00 05/23/20 10:00 05/23/20 10:00 05/23/20 09:00 Active Medications Acetaminophen (Ofirmev Injection -) 1,000 mg IVPB Q8H [facility] Stop: 05/23/20 15:46 Last Admin: 05/23/20 09:00 Dose: 1,000 mg Documented by: Fentanyl (Sublimaze Injection -) 50 mcg IVPUSH [id number] PRN PRN Reason: PAIN-PACU ORDER X 4 DOSES ONLY Lactated Ringer's (Lactated Ringers Solution) 1,000 mls @ 125 mls/hr IV ASDIR [facility] Last Admin: 05/22/20 23:11 Dose: Not Given Documented by: Ondansetron HCl (Zofran Injection) 4 mg IVPUSH Q6H PRN PRN Reason: NAUSEA AND/OR VOMITING Oxycodone HCl (Roxicodone -) 10 mg PO Q4H PRN PRN Reason: PAIN LEVEL 6-10 Stop: 05/23/20 18:21 Last Admin: 05/23/20 10:14 Dose: 10 mg Documented by: Promethazine HCl (Phenergan Injection -) 12.5 mg IVPUSH Q6H PRN PRN Reason: NAUSEA-FOR RESCUE AFTER 15 MIN Stop: 05/23/20 18:21 Valsartan (Diovan -) 320 mg PO DAILY [facility] Last Admin: 05/23/20 11:17 Dose: Not Given Documented by: GENERAL: Awake and alert, NAD HEAD: NCAT EYES: (-) Pallor EARS, NOSE, THROAT: Moist mucous membranes. Oropharynx without exudates. NECK: Neck supple without LAD or masses. LUNGS: Breath sounds equal, CTAB. No wheezes, and no crackles. No accessory muscle use. HEART: Regular rate and rhythm, normal S1 and S2 without murmur, rub or gallop. ABDOMEN: Soft, nontender, not distended abdomen; bowel sounds auscultated. MUSCULOSKELETAL: Unable to assess ROM as pt is drowsy. No bony deformities or tenderness. UPPER EXTREMITIES: 2+ pulses, warm, well-perfused. Cap refill <2 seconds. No peripheral edema. LOWER EXTREMITIES: 2+ pulses, warm, well-perfused. No calf tenderness. No peripheral edema. NEUROLOGICAL: Non-focal PSYCHIATRIC: Cooperative. Good eye contact. Appropriate mood and affect. SKIN: Warm; lumbar surgical site bandaged clean, dry; Davol drain with sanguineous output Laboratory Results - last 24 hr //05/23/20 06:00 06:00 WBC 23.0 H RBC 3.35 L Hgb 12.8 Hct 37.7 D MCV 112.6 H MCH 38.3 H MCHC 34.0 RDW 14.2 Plt Count 107 L MPV 9.1 Sodium 138 Potassium 4.9 Chloride 103 Carbon Dioxide 26 Anion Gap 9 BUN 31.2 H Creatinine 1.5 H Est GFR (CKD-EPI)AfAm 55.43 Est GFR (CKD-EPI)NonAf 47.82 Random Glucose 193 H Calcium 7.9 L ASSESSMENT/PLAN: POD # 1 : Removal of hardware L3-L4, inspection of fusion mass, L3-S1 laminectomies, L4-L5 & L5-S1 PLIF, L3-S1 posterior instrumented spinal fusion HTN History of previous cervical spine surgery R/O COPD Pain control PT Supplemental O2 as needed VTE prophylaxis No NSAIDS Incentive Spirometry PO as tolerated OOB to chair and activity per Orthopedics Dr Spears
[2020-05-23] MEDS: LACTATED RINGERS SOLUTION 1,000 ML IV SCH (16:00)
--- NOTE | 2020-05-23 17:45 | PN ---
Progress Note (short form) - Note Progress Note: TRANSFER NOTE Subjective: Seen and examined, patient was awake and explained that his Rivera is very irritating to the surrounding skin. Otherwise he was feeling well and not in particularly much pain. Has not passed flatus since surgery, last BM was morning before surgery. Patient was also thirsty and hungry. Objective: General: awake, no acute signs of distress Head: normocephalic, atraumatic Heart: RRR, S1 S2 without murmurs Lungs: CTAB Abdomen: nontender to palpation, nondistended, soft Extremities: warm to touch, no edema noted, no rashes Psych: uncomfortable but appropriate Hospital Course: 64yo M with PMHx of HTN, chronic pain, previous cervical spine injury, and intervertebral disk disorder who is POD1 from 1. Removal of hardware L3-L4, 2. Inspection of fusion mass, 3. L3-S1 laminectomies, 4. L4-L5 & L5-S1 PLIF, 5. L3- S1 posterior instrumented spinal fusion, 6. Bone autograft, 7. Bone allograft. Pain is well controlled and ICU course was unremarkable. Per Dr. Alvarado patient is stable for transfer. #Neuro no neurological concerns at this time Pain well controlled - continue pain management per Dr. Alvarado #Pulm no pulmonary concerns at this time - continue incentive spirometer q15 minutes #Cardio HTN - continue valsartan #MSK s/p removal of hardware L3-L4, inspection of fusion mass, L3-S1 laminectomies, L4-L5 & L5-S1 PLIF, L3-S1 posterior instrumented spinal fusion - Pain control with IV Tylenol prn for mild pain; oxycodone prn for moderate to severe pain. NO NSAIDs per orthopedic surgery - Physical Therapy consult FEN -Hydration with LR -Follow BMP; replete lytes prn -low sodium diet Prophylaxis -SCDs bilateral lower extremities LTD -Davol drain 05/22 Dispo: transfer to med-surg.
--- NOTE | 2020-05-23 19:12 | HOSP ---
Subjective - Review of Symptoms Events since last encounter: 64yo M with PMHx of HTN, chronic pain, previous cervical spine injury, and intervertebral disk disorder who is POD1 from complex spine surgery(Shein; 1. Removal of hardware L3-L4, 2. Inspection of fusion mass, 3. L3-S1 laminectomies, 4. L4-L5 & L5-S1 PLIF, 5. L3-S1 posterior instrumented spinal fusion, 6. Bone autograft, 7. Bone allograft). Was admitted to ICU for post-operative monitoring. Was deemed stable for downgrade from ICU on POD#1. Continued with his valsartan for HTN. Subjective: Pt says he got elective surgery to address his chronic LBP and BLE pain, with severe limitation in his BLE mobility. Thinks his pain is improved. Has urinated after surgery. Has appetite and ate his meal. General: Yes: Appetite. No: Chills, Fatigue HEENT: No: Visual Changes, Dysphasia Pulmonary: No: Cough Cardiovascular: No: Chest Pain, Orthopnea Gastrointestinal: No: Nausea, Vomiting Genitourinary: No: Incontinence, Retention Musculoskeletal: Yes: Back Pain, Decreased ROM (of BLE) Neurological: Yes: Other (BLE and LBP with walking) Physical Examination Vital Signs: Vital Signs Temperature 98.5 F 05/23/20 19:00 Pulse Rate 122 H 05/23/20 19:00 Respiratory Rate 20 05/23/20 19:00 Blood Pressure 164/80 05/23/20 19:00 O2 Sat by Pulse Oximetry (%) 99 05/23/20 19:00 Constitutional: Yes: Calm HENT: Yes: Atraumatic, Normocephalic Neck: Yes: Supple Cardiovascular: Yes: Regular Rate and Rhythm, S1, S2 Respiratory: Yes: Regular, CTA Bilaterally Gastrointestinal: Yes: Soft. No: Tenderness, Epigastrium, Tenderness, Rebound Musculoskeletal: Yes: Back Pain (back covered in iodoban surgical dressing with accordion wound vac in place with dark bloody output), Joint Swelling Extremities: Yes: Other (sensation intact. Limited active ROM). No: Calf Tenderness, Deformity Edema: No Peripheral Pulses WNL: Yes Neurological: Yes: Alert, Oriented, Weakness (BLE weakness) Labs: CBC, BMP 05/23/20 06:00 05/23/20 06:00 Hospitalist Encounter Assessment: POD#1 from spine surgery(1. Removal of hardware L3-L4, 2. Inspection of fusion mass, 3. L3-S1 laminectomies, 4. L4-L5 & L5-S1 PLIF, 5. L3-S1 posterior instrumented spinal fusion, 6. Bone autograft, 7. Bone allograft.). Pt deemed stable for downgrade from ICU. Visit type - Emergency Visit Emergency Visit: No - New Patient This patient is new to me today: Yes Date on this admission: 05/24/20 - Critical Care Critical Care patient: No
[2020-05-23] MEDS ORDERED: ONDANSETRON 4 MG/2 ML VIAL IVPUSH PRN (19:39)
[2020-05-24] MEDS ORDERED: oxyCODONE HCL 5 MG TABLET PO ONE (03:48)
[2020-05-24] MEDS: VALSARTAN 160 MG TABLET (UD) PO SCH (09:09)
[2020-05-24] MEDS: GABAPENTIN 300 MG CAPSULE PO SCH ×2 (10:07→21:50)
--- NOTE | 2020-05-24 10:37 | PN ---
Physical Exam: SUBJECTIVE: Patient seen and examined at the bedside. refused PT, ambulating in room. OBJECTIVE: Pt is a 64 year old male with a significant past medical history of previous cervical spine surgery, COPD and collaplsed left lung 1996. He is s/p removal of hardware L3-L4, inspection of fusion mass, L3-S1 laminectomies, L4-L5 & L5-S1 PLIF, L3-S1 posterior instrumented spinal fusion on 05/22/2020. Vital Signs Period Temp Pulse Resp BP Sys/Canales Pulse Ox Last 24 Hr 97.6 F-98.6 F 70-131 18-24 133-164/55-111 97-99 GENERAL: The patient is awake, alert, and fully oriented, in no acute distress. HEAD: Normal with no signs of trauma. EYES: PERRL, extraocular movements intact, sclera anicteric, conjunctiva clear. No ptosis. ENT: Ears normal, nares patent, oropharynx clear without exudates, moist mucous membranes. NECK: Trachea midline, full range of motion, supple. LUNGS: Breath sounds equal, clear to auscultation bilaterally, no wheezes HEART: Regular rate and rhythm ABDOMEN: Soft, nontender, nondistended, normoactive bowel sounds EXTREMITIES: no edema. NEUROLOGICAL: Normal speech, gait steady PSYCH: Normal mood, normal affect. SKIN: large surgical scar right left back-healed, back dressing CDI Active Medications Generic Name Dose Route Start Last Admin Trade Name Freq PRN Reason Stop Dose Admin Fentanyl 50 mcg 05/23/20 19:39 Sublimaze Injection - IVPUSH [id number] PRN PAIN-PACU ORDER X 4 DOSES ONLY Gabapentin 600 mg 05/24/20 10:00 05/24/20 10:07 Neurontin - PO 600 mg BID ALEXEI Administration Ondansetron HCl 4 mg 05/23/20 19:39 Zofran Injection IVPUSH Q6H PRN NAUSEA AND/OR VOMITING Valsartan 320 mg 05/24/20 10:00 05/24/20 09:09 Diovan - PO 320 mg DAILY ALEXEI Administration ASSESSMENT/PLAN: Problem List - Problems (1) Lumbar spinal stenosis Assessment/Plan: POD#2 from spine surgery(1. Removal of hardware L3-L4, 2. Inspection of fusion mass, 3. L3-S1 laminectomies, 4. L4-L5 & L5-S1 PLIF, 5. L3-S1 posterior instrumented spinal fusion, 6. Bone autograft, 7. Bone allograft.) physical therapy bowel regimen pain management incentive spirometer surgery follow up Code(s): M48.061 - SPINAL STENOSIS, LUMBAR REGION WITHOUT NEUROGENIC SHAQUILLE (2) Hypertension Assessment/Plan: stable on diovan 320mg daily Code(s): I10 - ESSENTIAL (PRIMARY) HYPERTENSION (3) DVT prophylaxis Assessment/Plan: ambulation/SCDs Code(s): Z29.9 - ENCOUNTER FOR PROPHYLACTIC MEASURES, UNSPECIFIED Visit type - Emergency Visit Emergency Visit: Yes ED Registration Date: 05/22/20 Care time: The patient presented to the Emergency Department on the above date and was hospitalized for further evaluation of their emergent condition. - New Patient This patient is new to me today: Yes Date on this admission: 05/24/20 - Critical Care Critical Care patient: No - Discharge Referral Referred to [facility] Med P.C.: No
[2020-05-24 10:51] LABS: BASO % 0.4 % (0-2.0); EOS % 0.1 % (0-4.5); HEMATOCRIT 25.7 % (35.4-49); HEMOGLOBIN 8.8 GM/dL (11.7-16.9); LYMPH % 9.5 % (8-40); MCH 38.2 pg (25.7-33.7); MCHC 34.4 g/dl (32.0-35.9); MEAN CELL VOLUME 111.1 fl (80-96); MONO % 9.5 % (3.8-10.2); NEUT % 80.5 % (42.8-82.8); PLATELET COUNT 82 K/MM3 (134-434); RBC 2.31 M/mm3 (4.00-5.60); RDW 13.9 % (11.9-15.9); WHITE BLOOD COUNT 15.9 K/mm3 (4.0-10.0)
[2020-05-24 11:16] LABS: ALBUMIN 2.6 g/dl (3.4-5.0); ANISOCYTOSIS 1+; BILIRUBIN,TOTAL 0.8 mg/dL (0.2-1); BLOOD UREA NITROGEN 19.8 mg/dL (7-18); CALCIUM 8.3 mg/dL (8.5-10.1); CREATININE 0.8 mg/dL (0.55-1.3); MACROCYTOSIS 1+; MAGNESIUM 1.7 mg/dL (1.8-2.4); PLATELET ESTIMATE DECREASED; TOT PROT 4.7 g/dl (6.4-8.2)
[2020-05-24] MEDS ORDERED: MAGNESIUM OXIDE 400 MG TABLET (FP) PO ONE (15:29)
[2020-05-24] MEDS: DOCUSATE SODIUM 100 MG CAPSULE (FP) PO SCH ×2 (16:10→21:50)
--- NOTE | 2020-05-24 16:19 | PATH ---
Surgical Pathology Report Patient Name: YESSENIA GOLDSMITH Med. Rec. #: [id number] /Age/Gender: 1955 (Age: 64) / M Account: [id number] Location: [facility] MED/SURG Taken: 05/22/2020 Received: 05/23/2020 Reported: 05/24/2020 Physicians: Juwan Alvarado M.D. Specimen(s) Received A: REMOVED HARDWARE B: L4/L5 TISSUE Clinical History Spinal stenosis with claudication Final Diagnosis A. REMOVED HARDWARE, L4-5, POSTERIOR LUMBAR INTERBODY FUSION: SURGICAL HARDWARE. MACROSCOPIC DIAGNOSIS. B. L4/L5 TISSUE, POSTERIOR LUMBAR INTERBODY FUSION: BENIGN INTERVERTEBRAL DISC TISSUE AND BONE. Electronically Signed Ana Stuart M.D. Gross Description A. Received fresh labeled "removed hardware," are 2 marlow metallic, bent rods averaging 4 cm in length. Also received within the same container are 8 metallic screws ranging from 0.4-6.0 cm in length. No soft tissue is present. No sections are submitted, gross only. B. Received in formalin labeled "L4/L5 tissue," is a 5.0 x 4.5 x 0.3 cm aggregate of polk fragments of fibrocartilaginous tissue. A manufacturers representative portion is submitted in one cassette. 05/23/2020/05/23/2020
[2020-05-24] MEDS: oxyCODONE HCL 5 MG TABLET PO PRN (17:13)
[2020-05-25] MEDS: DOCUSATE SODIUM 100 MG CAPSULE (FP) PO SCH ×2 (06:23→15:07)
[2020-05-25 07:28] LABS: BASO % 0.1 % (0-2.0); EOS % 0.6 % (0-4.5); HEMATOCRIT 21.5 % (35.4-49); HEMOGLOBIN 7.5 GM/dL (11.7-16.9); LYMPH % 20.3 % (8-40); MCH 38.8 pg (25.7-33.7); MCHC 34.9 g/dl (32.0-35.9); MEAN PLT VOLUME 8.6 fl (7.5-11.1); MONO % 8.3 % (3.8-10.2); NEUT % 70.7 % (42.8-82.8); PLATELET COUNT 75 K/MM3 (134-434); RBC 1.94 M/mm3 (4.00-5.60); RDW 13.8 % (11.9-15.9); WHITE BLOOD COUNT 8.5 K/mm3 (4.0-10.0)
[2020-05-25 07:55] LABS: ALBUMIN 2.2 g/dl (3.4-5.0); BLOOD UREA NITROGEN 14.1 mg/dL (7-18); CALCIUM 8.2 mg/dL (8.5-10.1); CREATININE 0.7 mg/dL (0.55-1.3); MAGNESIUM 1.9 mg/dL (1.8-2.4); POTASSIUM 4.1 mmol/L (3.5-5.1); TOT PROT 4.6 g/dl (6.4-8.2)
[2020-05-25 08:39] LABS: HEMATOCRIT 22.2 % (35.4-49); HEMOGLOBIN 7.7 GM/dL (11.7-16.9); MCH 38.3 pg (25.7-33.7); MCHC 34.7 g/dl (32.0-35.9); MEAN CELL VOLUME 110.4 fl (80-96); MEAN PLT VOLUME 8.7 fl (7.5-11.1); PLATELET COUNT 76 K/MM3 (134-434); RBC 2.01 M/mm3 (4.00-5.60); RDW 13.7 % (11.9-15.9); WHITE BLOOD COUNT 9.7 K/mm3 (4.0-10.0)
[2020-05-25] MEDS: oxyCODONE HCL 5 MG TABLET PO PRN (09:36)
[2020-05-25] MEDS: VALSARTAN 160 MG TABLET (UD) PO SCH (09:36)
[2020-05-25] MEDS: GABAPENTIN 300 MG CAPSULE PO SCH (09:36)
[2020-05-25] MEDS ORDERED: POLYETHYLENE GLYCOL 3350 119 GM BTL PO SCH (10:00)
[2020-05-25] MEDS ORDERED: FERROUS SO4 325 MG TABLET (FP) PO SCH (10:00)
[2020-05-25 13:56] LABS: HEMATOCRIT 22.8 % (35.4-49); HEMOGLOBIN 7.9 GM/dL (11.7-16.9); MCH 38.9 pg (25.7-33.7); MCHC 34.6 g/dl (32.0-35.9); MEAN CELL VOLUME 112.4 fl (80-96); PLATELET COUNT 84 K/MM3 (134-434); RBC 2.03 M/mm3 (4.00-5.60); WHITE BLOOD COUNT 9.3 K/mm3 (4.0-10.0)
--- NOTE | 2020-05-25 14:50 | DS ---
Physical Exam: SUBJECTIVE: Patient seen and examined. ambulating in room, feels well. Denies dizzines, denies shortness of breath. Advised patient that his hmg is low and recommended that he have his CBC repeated to make sure it improves. He is in agreement. He is refusing a blood transfusion. OBJECTIVE: Pt is a 64 year old male with a significant past medical history of previous cervical spine surgery, COPD and collapsed left lung 1996. He is s/p removal of hardware L3-L4, inspection of fusion mass, L3-S1 laminectomies, L4-L5 & L5-S1 PLIF, L3-S1 posterior instrumented spinal fusion on 05/22/2020. Doval drain removed today by surgery, patient for d/c home with surgery follow up on . Will need close monitoring of CBC outpatient, he agrees to have labs repeated. will add acute blood loss anemia to problem list. Vital Signs Period Temp Pulse Resp BP Sys/Canales Pulse Ox Last 24 Hr 98.8 F-99.1 F 76-92 20-20 118-140/56-56 93-93 PHYSICAL EXAM GENERAL: The patient is awake, alert, and fully oriented, in no acute distress. HEAD: Normal with no signs of trauma. EYES: PERRL, extraocular movements intact, sclera anicteric, conjunctiva clear. No ptosis. ENT: Ears normal, nares patent, oropharynx clear without exudates, moist mucous membranes. NECK: Trachea midline, full range of motion, supple. LUNGS: Breath sounds equal, clear to auscultation bilaterally, no wheezes HEART: Regular rate and rhythm ABDOMEN: Soft, nontender, nondistended, normoactive bowel sounds EXTREMITIES: no edema. NEUROLOGICAL: Normal speech, gait steady PSYCH: Normal mood, normal affect. SKIN: large surgical scar right left back-healed, back dressing CDI LABS Laboratory Results - last 24 hr 05/25/20 05/25/20 05/25/20 06:25 06:25 08:15 WBC 8.5 9.7 RBC 1.94 L 2.01 L Hgb 7.5 L 7.7 L Hct 21.5 L D 22.2 L MCV 111.0 H 110.4 H MCH 38.8 H 38.3 H MCHC 34.9 34.7 RDW 13.8 13.7 Plt Count 75 L 76 L MPV 8.6 8.7 Absolute Neuts (auto) 6.0 Neutrophils % 70.7 Lymphocytes % 20.3 D Monocytes % 8.3 Eosinophils % 0.6 D Basophils % 0.1 Nucleated RBC % 0 Sodium 139 Potassium 4.1 Chloride 106 Carbon Dioxide 30 Anion Gap 4 L BUN 14.1 Creatinine 0.7 Est GFR (CKD-EPI)AfAm 113.98 Est GFR (CKD-EPI)NonAf 98.34 Random Glucose 98 Calcium 8.2 L Magnesium 1.9 Iron 51 TIBC 151 L Iron Saturation 33 Unsaturated IBC 100 L Ferritin 585.8 H Total Bilirubin 1.0 AST 28 ALT 18 Alkaline Phosphatase 27 L Total Protein 4.6 L Albumin 2.2 L 05/25/20 12:32 WBC 9.3 RBC 2.03 L Hgb 7.9 L Hct 22.8 L MCV 112.4 H MCH 38.9 H MCHC 34.6 RDW 14.0 Plt Count 84 L MPV 9.0 Absolute Neuts (auto) Neutrophils % Lymphocytes % Monocytes % Eosinophils % Basophils % Nucleated RBC % Sodium Potassium Chloride Carbon Dioxide Anion Gap BUN Creatinine Est GFR (CKD-EPI)AfAm Est GFR (CKD-EPI)NonAf Random Glucose Calcium Magnesium Iron TIBC Iron Saturation Unsaturated IBC Ferritin Total Bilirubin AST ALT Alkaline Phosphatase Total Protein Albumin HOSPITAL COURSE: Date of Admission:05/22/20 Date of Discharge: 05/25/20 Minutes to complete discharge: 60 Discharge Summary Problems reviewed: Yes Reason For Visit: SPINAL STENOSIS WITH CLAUDICATION Current Active Problems DVT prophylaxis (Acute) Hypertension (Acute) Condition: Stable - Instructions Diet, Activity, Other Instructions: Mr. Banerjee: You will be discharged home today. You had spine surgery with Dr. Alvarado and you will need to follow up with him as scheduled. MEDICATIONS: For pain, take oxycodone 5mg NEEDED not to exceed 3 tabs per day. Continue taking the stool softners (COLACE 100mg) three times per day SURGERY CARE: No bending lifting (>5 lbs), or twisting for 9-12 months and until cleared by your surgeon. Please follow up with Dr. Alvarado DRESSING: Please keep dressing dry. You will be seen by the surgeon to have your dressing changed. You blood work is noted to be lower than normal (your hemoglobin). This can occur after surgery. We will be starting you on Iron supplements TWICE per day. It is important that you follow up and have your lab work repeated within 1 week to assure that your blood counts are stable. Thank you for allowing us to care for you. Referrals: Iain Alvarado MD [Staff Physician] - 1 Week Juwan Alvarado MD [Staff Physician] - Disposition: HOME - Home Medications Comprehensive Discharge Medication List: Ambulatory Orders Gabapentin 600 mg PO BID 11/24/18 Telmisartan 80 mg PO DAILY 05/22/20 Docusate Sodium [Colace -] 100 mg PO TID capsule 05/25/20 Ferrous Sulfate [Feosol] 325 mg PO BID #60 tab 05/25/20 Polyethylene Glycol 3350 [Miralax 119 gm Btl -] 17 gm PO DAILY bottle 05/25/20 Prescription Drug Monitoring Program (I-STOP) results: I-STOP reviewed and no issues identified Problem List - Problems (1) Lumbar spinal stenosis Assessment/Plan: POD#3 from spine surgery(1. Removal of hardware L3-L4, 2. Inspection of fusion mass, 3. L3-S1 laminectomies, 4. L4-L5 & L5-S1 PLIF, 5. L3-S1 posterior instrumented spinal fusion, 6. Bone autograft, 7. Bone allograft.) physical therapy at home recommended surgery follow up with Dr. Alvarado. patient has follow up appointment. Code(s): M48.061 - SPINAL STENOSIS, LUMBAR REGION WITHOUT NEUROGENIC SHAQUILLE (2) Hypertension Assessment/Plan: stable. resume home meds. Code(s): I10 - ESSENTIAL (PRIMARY) HYPERTENSION (3) Acute blood loss anemia Assessment/Plan: likely secondary to recent surgery no dizziness, no shortness of breath, patient denies any symptoms. refusing blood transfusion He will see PCP or surgeon for follow up labs started on iron therapy BID Code(s): D62 - ACUTE POSTHEMORRHAGIC ANEMIA (4) DVT prophylaxis Assessment/Plan: ambulation/SCDs Code(s): Z29.9 - ENCOUNTER FOR PROPHYLACTIC MEASURES, UNSPECIFIED This patient is new to me today: No Emergency Visit: Yes ED Registration Date: 05/22/20 Care time: The patient presented to the Emergency Department on the above date and was hospitalized for further evaluation of their emergent condition. Critical Care patient: No - Discharge Referral Referred to [facility] Med P.C.: No
[2020-05-25 17:13] VITALS: BP 120/51; PULSE 69; TEMP 98.4
== END 2020-05-25 17:29 | disposition home or self-care (01) | DRG 454 ==
LOC: J2C 05-22 10:01 → JICU 05-22 22:22 → J8W 05-23 16:30
PROVIDERS: ADMIT Orthopaedic Surgery Adult Reconstructive Orthopaedic Surgery; ATTEND Nurse Practitioner Family
PROC: 0SG00AJ Fusion of Lumbar Vertebral Joint with Interbody Fusion Device, Posterior Approach, Anterior Column, Open Approach (ICD-10-PCS; 2020-05-22)
PROC: 0SG1071 Fusion of 2 or more Lumbar Vertebral Joints with Autologous Tissue Substitute, Posterior Approach, Posterior Column, Open Approach (ICD-10-PCS; 2020-05-22)
PROC: 0SB20ZZ Excision of Lumbar Vertebral Disc, Open Approach (ICD-10-PCS; 2020-05-22)
PROC: 01NB0ZZ Release Lumbar Nerve, Open Approach (ICD-10-PCS; 2020-05-22)
PROC: 0SG3071 Fusion of Lumbosacral Joint with Autologous Tissue Substitute, Posterior Approach, Posterior Column, Open Approach (ICD-10-PCS; 2020-05-22)
PROC: 0SB40ZZ Excision of Lumbosacral Disc, Open Approach (ICD-10-PCS; 2020-05-22)
PROC: 0QH004Z Insertion of Internal Fixation Device into Lumbar Vertebra, Open Approach (ICD-10-PCS; 2020-05-22)
PROC: 0QH104Z Insertion of Internal Fixation Device into Sacrum, Open Approach (ICD-10-PCS; 2020-05-22)
PROC: 07DR3ZX Extraction of Iliac Bone Marrow, Percutaneous Approach, Diagnostic (ICD-10-PCS; 2020-05-22)
PROC: B01BZZZ Fluoroscopy of Spinal Cord (ICD-10-PCS; 2020-05-22)
PROC: 4A1004G Monitoring of Central Nervous Electrical Activity, Intraoperative, Open Approach (ICD-10-PCS; 2020-05-22)
PROC: 0SP00AZ Removal of Interbody Fusion Device from Lumbar Vertebral Joint, Open Approach (ICD-10-PCS; principal; 2020-05-22 12:00)
DX: M48.062 Spinal stenosis, lumbar region with neurogenic claudication (principal); D62 Acute posthemorrhagic anemia; I10 Essential (primary) hypertension; J44.9 Chronic obstructive pulmonary disease, unspecified; M48.07 Spinal stenosis, lumbosacral region; M54.16 Radiculopathy, lumbar region; M53.2X7 Spinal instabilities, lumbosacral region
CPT/HCPCS: 36415; 76000-TC-FY; 80048; 80053; 82728; 83036; 83540; 83550; 83735; 85025; 85027; 86850; 86891; 86900; 86901; 88300-TC; 88304-TC; 94760; 97116-GP; 97163-GP; J0131; J1644

== ENCOUNTER 2020-05-29 15:58 | Inpatient (IN) | payer BC ==
[2020-05-29 16:10] VITALS: BMI 26.6
--- NOTE | 2020-05-29 16:15 | PDOC ---
History of Present Illness - General Chief Complaint: Injury Stated Complaint: FALL/BACK INJ Time Seen by Provider: 05/29/20 16:14 - History of Present Illness Initial Comments: Pt is a 64yo M with a PMH of multiple spine surgeries who presents following a fall. Pt states that his left leg felt weak and he fell onto his behind from standing. Denies head trauma and loss of consciousness. States that current pain on buttocks and b/l leg pain/weakness/numbness have been present since surgery last friday and may have contributed to fall today. States that fall did not worsen pain in those areas. Describes pain from buttocks radiating down both legs, 08/19. States that he has numbness in L knee and States that today is the first time since discharge last that he has attempted walking a longer distance. Denies dizziness, lightheadness, syncope, back pain, myalgia or arthralgia in other locations. PCP: Anoop Ortho: Jenny PMH: HTN PSHx: Removal of hardware L3-L4, Inspection of fusion mass, L3-S1 laminectomies, L4-L5 & L5-S1 PLIF, L3-S1 posterior instrumented spinal fusion (05/22/2020) Meds: oxycodone (last taken yesterday), gabapentin (last taken this am) - states that these medications do not improve pain All: NKDA Social: reports unspecified cigar use; denies etoh and illicit drug use Past History - Medical History Allergies/Adverse Reactions: Allergies Allergy/AdvReac Type Severity Reaction Status Date / Time No Known Allergies Allergy Verified 05/29/20 16:08 Home Medications: Ambulatory Orders Gabapentin 600 mg PO BID 11/24/18 Telmisartan 80 mg PO DAILY 05/22/20 Docusate Sodium [Colace -] 100 mg PO TID capsule 05/25/20 Ferrous Sulfate [Feosol] 325 mg PO BID #60 tab 05/25/20 Polyethylene Glycol 3350 [Miralax 119 gm Btl -] 17 gm PO DAILY bottle 05/25/20 oxyCODONE HCL [Roxicodone -] 5 mg PO TID PRN #9 tablet MDD 3 tabs 05/25/20 Anemia: No Asthma: No Cancer: No Cardiac Disorders: No CVA: No COPD: No CHF: No Dementia: No Diabetes: No GI Disorders: No Disorders: No HTN: Yes Hypercholesterolemia: Yes Liver Disease: No Seizures: No Thyroid Disease: No - Surgical History Abdominal Surgery: No Appendectomy: No Cardiac Surgery: No Cholecystectomy: No Lung Surgery: Yes (1996 COLLASPED LUNG) Neurologic Surgery: Yes (2011 UPPER BACK SURGERY) Orthopedic Surgery: No - Psycho-Social/Smoking History Smoking History: Never smoked Have you smoked in the past 12 months: Yes Cigars Per Day: 2 'Breaking Loose' booklet given: 11/20/18 - Substance Abuse Hx (Audit-C & DAST Scrn) How often the patient has a drink containing alcohol: Never Score: In Men: 4 or > Positive; In Women: 3 or > Positive: 0 Screen Result (Pos requires Nsg. Audit-10AR): Negative In the last yr the pt used illegal drug/Rx for NonMed reason: No Score: Yes response is considered Positive: 0 Screen Result (Positive result requires Nsg. DAST-10): Negative Review of Systems - Review of Systems Comments:: CONSTITUTIONAL:denies fever, chills, diaphoresis, generalized weakness HEENT:denies nasal congestion, ear pain, eye pain, visual Changes CARDIOVASCULAR:denies chest pain, syncope, palpitations, lightheadedness, peripheral edema RESPIRATORY:denies cough, shortness of breath, wheezing GASTROINTESTINAL: denies abdominal pain, nausea, vomiting, diarrhea, constipation, melena, hematochezia GENITOURINARY:denies dysuria, frequency, urgency, hematuria MUSCULOSKELETAL:Reports numbness/tingling in b/l legs L>R; denies neck pain, back pain HEMATOLOGIC/IMMUNOLOGIC:denies easy bleeding, easy bruising NEUROLOGIC:denies headache, loss of consciousness, dizziness, mental status changes, bladder or bowel incontinence SKIN:denies rash, itching, pallor *Physical Exam - Vital Signs Last Vital Signs Temp Pulse Resp BP Pulse Ox 98.2 F 74 16 102/54 L 99 05/29/20 16:08 05/29/20 16:08 05/29/20 16:08 05/29/20 16:08 05/29/20 16:08 - Physical Exam General: awake, alert, fully oriented, in mild distress, well developed, well nourished Head: normocephalic, atraumatic Eyes: PERRL, EOMI, anicteric sclera, conjunctiva clear ENT: oropharynx clear without exudates. Moist mucous membranes Neck: supple, normal ROM Lung: equal breath sounds b/l, CTA b/l, no crackles, wheezes; no distress, speaks full sentences Heart: RRR, normal S1, S2, no murmurs, rubs, gallops Abdomen: soft, non tender, normoactive bowel sounds, no guarding, rebound, masses Extremities: tender to palpation over L hip; laceration to L 5th finger, cap refill <2sec, sensation intact; no edema, no erythema or tenderness, PT pulses 2+ and symmetric, no midline spinal tenderness Neuro: CN2-12 intact, moves all extremities, normal speech, sensation intact; 4/5 motor strength in LLE; 5/5 strength in other extremities Skin: warm, dry, no rashes or other lesions noted Procedures - Laceration/Wound Repair Left Distal 5th digit Wound Length: to 2.5 cm Wound Explored: no foreign body present Wound's Depth, Shape: linear Irrigated w/ Saline: Yes Anesthesia: 1% Lidocaine w/ Epi Suture Size/Type: 5:0, nylon Number of Sutures: 3 Sterile Dressing Applied: Yes Medical Decision Making - Medical Decision Making Pt is a 64yo M with PMH multiple spinal surgeries (05/22/2020) who presents following fall attributed to L leg weakness/pain. Vital Signs Temp Pulse Resp BP Pulse Ox 98.2 F 74 16 102/54 L 99 05/29/20 16:08 05/29/20 16:08 05/29/20 16:08 05/29/20 16:08 05/29/20 16:08 DDx: laceration to L fifth finger, chronic back pain Plan: L hip/pelvis xray, Lumbar and sacral spine xray, L hand xray, pain control 05/29/20 19:06 Xrays: no gross fracture or displacement noticed by ED staff, pending official read. Given 5mg Roxicodone, 30mg IM Toradol, 975mg Tylenol PO, lidoderm patch. States that pain is still 10/10 laceration to L distal fifth finger repaired with 3 5.0 nylon sutures Spoke with Dr. Alvarado who recommended CT lumbar spine and admission to [facility]. Pt signed out to Dr. Marie who will follow up labs and continue pain control and admit if pain remains intractable and patient is unable to ambulate. Discharge - Discharge Information Problems reviewed: Yes Clinical Impression/Diagnosis: Fall Condition: Stable - Follow up/Referral Referrals: Abilio Davalos [Primary Care Provider] - - Patient Discharge Instructions - Post Discharge Activity
[2020-05-29] MEDS ORDERED: KETOROLAC TROMETHAMINE 30 MG/1 ML VIAL IM ONE (17:22)
[2020-05-29] MEDS ORDERED: oxyCODONE HCL 5 MG TABLET PO ONE (17:45)
[2020-05-29] MEDS ORDERED: LIDOCAINE 5% TOPICAL PATCH TP ONE (17:46)
[2020-05-29] MEDS ORDERED: oxyCODONE HCL 5 MG TABLET ONE (17:47)
[2020-05-29] MEDS ORDERED: LIDOCAINE 5% TOPICAL PATCH ONE (17:47)
[2020-05-29] MEDS ORDERED: ACETAMINOPHEN 325 MG TABLET (FP) ONE (17:47)
[2020-05-29] MEDS ORDERED: KETOROLAC TROMETHAMINE 30 MG/1 ML VIAL ONE (17:47)
[2020-05-29] MEDS: ACETAMINOPHEN 325 MG TABLET (FP) PO ONE ×2 (18:03→18:06)
[2020-05-29] MEDS ORDERED: ACETAMINOPHEN 325 MG TABLET (FP) PO ONE (18:05)
[2020-05-29] MEDS ORDERED: DIPHTH,PERTUSS(ACELL),TET 0.5 ML DISP.SYRIN IM ONE ×2 (18:08→20:38)
--- NOTE | 2020-05-29 18:42 | PDOC ---
Documentation entered by Daina Fontana SCRIBE, acting as scribe for Ling Lowe MD. Ling Lowe MD: This documentation has been prepared by the Irvin ahmadi Xhesika, SCRIBE, under my direction and personally reviewed by me in its entirety. I confirm that the documentation accurately reflects all work, treatment, procedures, and medical decision making performed by me. Attending Attestation - Resident Resident Name: HuntVianney - ED Attending Attestation I have performed the following: I have examined & evaluated the patient, The case was reviewed & discussed with the resident, I agree w/resident's findings & plan, Exceptions are as noted - HPI HPI: 05/29/20 17:19 The patient is a 64y/o M with a PMH of HTN, and multiple spine surgeries (Removal of hardware L3-L4, Inspection of fusion mass, L3-S1 laminectomies, L4- L5 & L5-S1 PLIF, L3-S1 posterior instrumented spinal fusion - 05/22/2020) who presents to the ED with buttock pain radiating down BL legs s/p fall secondary to the pain. Pt states that his left leg felt weak and he fell onto his buttock from standing. Pt states he had surgery last week and that may have contributed to his fall. pt denies head trauma and loss of consciousness. Pt ambulates with a cane. Pt states he took Gebapentin for his pain. Allergies: NKDA PSHx: Removal of hardware L3-L4, Inspection of fusion mass, L3-S1 laminectomies, L4-L5 & L5-S1 PLIF, L3-S1 posterior instrumented spinal fusion (05/22/2020) PCP: Anoop Ortho: Jenny - Physicial Exam PE: 05/29/20 21:57 wnwd 64 yo male just had spinal surgery last week and today fell on his buttocks head no scalp laceration neck no cervical vertebral tenderness lungs cta b/l cvs [id number] abdomen no rebound skin warm and dry extremities no deformities neuro axox3, cannot ambulate due to pain - Medical Decision Making 05/29/20 19:46 pt received pain meds and still has too much pain to ambulate 05/29/20 21:[address] scan - no fracture 05/29/20 23:29 hemoglobin =7.2 and pt requires blood transfusion Discharge - Discharge Information Problems reviewed: Yes Clinical Impression/Diagnosis: Intractable back pain Fall Qualifiers: Encounter type: initial encounter Qualified Code(s): W19.XXXA - Unspecified fall, initial encounter Condition: Guarded - Follow up/Referral - Patient Discharge Instructions - Post Discharge Activity
--- NOTE | 2020-05-29 19:30 | PDOC ---
*Physical Exam - Vital Signs Last Vital Signs Temp Pulse Resp BP Pulse Ox 98.2 F 74 16 102/54 L 99 05/29/20 16:08 05/29/20 16:08 05/29/20 16:08 05/29/20 16:08 05/29/20 16:08 ED Treatment Course - LABORATORY CBC & Chemistry Diagram: 05/29/20 20:40 05/29/20 20:40 - Medications Given in the ED: ED Medications Discontinued Medications Generic Name Dose Route Start Last Admin Trade Name Ryan PRN Reason Stop Dose Admin Acetaminophen 650 mg 05/29/20 17:45 05/29/20 18:06 Tylenol - PO 05/29/20 17:46 Not Given ONCE ONE Acetaminophen 975 mg 05/29/20 18:05 05/29/20 18:05 Tylenol - PO 05/29/20 18:06 975 mg ONCE ONE Administration Ketorolac Tromethamine 30 mg 05/29/20 17:22 05/29/20 18:00 Toradol Injection - IM 05/29/20 17:23 30 mg ONCE ONE Administration Lidocaine 1 patch 05/29/20 17:46 05/29/20 18:00 Lidoderm Patch - TP 05/29/20 17:47 1 patch ONCE ONE Administration Oxycodone HCl 5 mg 05/29/20 17:45 05/29/20 18:00 Roxicodone - PO 05/29/20 17:46 5 mg ONCE ONE Administration Medical Decision Making - Medical Decision Making 05/29/20 19:24 Sign-out received from Dr. Hunt. In short, patient with recent back surgery, presenting s/p mechanical fall with worsening pain. Will follow up pain control, official imaging reads (nothing grossly fractures or displaced on ED preliminary review), and labs / EKG. Dr. Hunt spoke with Dr. Alvarado who recommended CT Lumbar without contrast and admission. Plan for admission to Med/Surg. 05/29/20 20:[address] Line and labs by Nurse Shadia Pain has improved s/p medication 05/29/20 22:04 Laboratory Tests 05/29/20 05/29/20 20:40 20:40 WBC 9.9 RBC 1.85 L Hgb 7.2 L Hct 21.3 L MCV 114.8 H MCH 38.9 H MCHC 33.8 RDW 14.3 Plt Count 221 D MPV 8.2 Absolute Neuts (auto) 7.3 Neutrophils % 73.9 Lymphocytes % 13.4 D Monocytes % 11.6 H Eosinophils % 0.6 Basophils % 0.5 D Nucleated RBC % 1 H Sodium 135 L Potassium 4.1 Chloride 101 Carbon Dioxide 25 Anion Gap 8 BUN 17.0 Creatinine 1.1 Est GFR (CKD-EPI)AfAm 80.65 Est GFR (CKD-EPI)NonAf 69.58 Random Glucose 99 Calcium 8.3 L Total Bilirubin 0.6 AST 39 H ALT 23 Alkaline Phosphatase 28 L Total Protein 5.1 L Albumin 2.3 L Baseline anemia Microblog sent for admission 05/29/20 23:03 Patient endorsed to inpatient team 05/29/20 23:44 Requesting to leave AMA Staying for transfusion per inpatient team discussion Ordered for T&S, 1U PRBCs Discharge - Discharge Information Problems reviewed: Yes Clinical Impression/Diagnosis: Intractable back pain Fall Qualifiers: Encounter type: initial encounter Qualified Code(s): W19.XXXA - Unspecified fall, initial encounter Condition: Guarded - Admission Yes - Follow up/Referral - Patient Discharge Instructions - Post Discharge Activity
[2020-05-29 21:08] LABS: BASO % 0.5 % (0-2.0); EOS % 0.6 % (0-4.5); HEMATOCRIT 21.3 % (35.4-49); HEMOGLOBIN 7.2 GM/dL (11.7-16.9); LYMPH % 13.4 % (8-40); MCH 38.9 pg (25.7-33.7); MCHC 33.8 g/dl (32.0-35.9); MEAN CELL VOLUME 114.8 fl (80-96); MEAN PLT VOLUME 8.2 fl (7.5-11.1); MONO % 11.6 % (3.8-10.2); NEUT % 73.9 % (42.8-82.8); PLATELET COUNT 221 K/MM3 (134-434); RBC 1.85 M/mm3 (4.00-5.60); RDW 14.3 % (11.9-15.9); WHITE BLOOD COUNT 9.9 K/mm3 (4.0-10.0)
[2020-05-29 21:49] LABS: ALBUMIN 2.3 g/dl (3.4-5.0); CALCIUM 8.3 mg/dL (8.5-10.1); CREATININE 1.1 mg/dL (0.55-1.3); POTASSIUM 4.1 mmol/L (3.5-5.1)
[2020-05-29 21:55] LABS: BILIRUBIN,TOTAL 0.6 mg/dL (0.2-1); TOT PROT 5.1 g/dl (6.4-8.2)
[2020-05-29] MEDS ORDERED: LIDOCAINE PATCH REMOVAL MC SCH (22:00)
--- NOTE | 2020-05-29 22:36 | PN ---
Teaching Attending Note Name of Resident: Wayne Vernon ATTENDING PHYSICIAN STATEMENT I saw and evaluated the patient. I reviewed the resident's note and discussed the case with the resident. I agree with the resident's findings and plan as documented. SUBJECTIVE: Patient is a 64 year old man with a PMH of HTN, Alcohol abuse and Multiple spine surgeries who presents following a fall. Patient states that his left leg felt weak and he fell onto his buttock from standing. Denies head trauma or loss of consciousness. States that current pain on buttocks and bilateral leg pain/weakness/numbness have been present since surgery last Friday and may have contributed to fall today. States that fall did not worsen pain in those areas. Describes pain from buttocks radiating down both legs as 10/10. States that he has numbness in L knee and states that today is the first time since discharge last that he has attempted walking a longer distance. Tested negative for COVID-19 on 05/18/2020. Denies dizziness, lightheadedness, syncope, back pain, myalgia or arthralgia in other locations. Patient denies chest pain, shortness of breath, abdominal pain, headache, palpitations, fever, chills, nausea, vomiting, diarrhea, constipation, dysuria, frequency, urgency, melena, hematochezia or hematuria. Smokes cigars. Denies alcohol or illicit drug use. No sick contacts or recent travels. Family history is unremarkable. OBJECTIVE: Alert and angry Vital Signs Period Temp Pulse Resp BP Sys/Canales Pulse Ox Last 24 Hr 98.2 F 74 16 102/54 99 HEENT: No Jaundice, eye redness or discharge, PERRLA, EOMI. Normocephalic, atraumatic. External ears are normal and hearing is grossly intact. No nasal discharge. Neck: Supple, nontender. No palpable adenopathy or thyromegaly. No JVD Chest: Good effort. Clear to auscultation and percussion. Heart: Regular. No S3, rub or murmur Abdomen: Not distended, soft, nontender and no HSM. No rebound or guarding. Normal bowel sounds. Ext: Peripheral pulses intact. No leg edema. Left 5th finger with sutured laceration. Refused examination of his surgical wound. Skin: Warm and dry. No petechiae, rash or ecchymosis. Neuro: Alert. Oriented x3. CN 2-12 grossly intact. Reduced sensation in LLE; DTR are symmetric. Psych: Appropriate mood and affect. Good insight. Current Medications Generic Name Dose Route Start Last Admin Trade Name Ryan PRN Reason Stop Dose Admin Miscellaneous 1 each 05/29/20 22:00 05/29/20 22:14 Lidoderm Patch Removal MC Not Given DAILY@2200 [facility] Home Medications Medication Instructions Recorded Gabapentin 600 mg PO BID 11/24/18 Telmisartan 80 mg PO DAILY 05/22/20 Docusate Sodium [Colace -] 100 mg PO TID capsule 05/25/20 Ferrous Sulfate [Feosol] 325 mg PO BID #60 tab 05/25/20 Polyethylene Glycol 3350 [Miralax 17 gm PO DAILY bottle 05/25/20 119 gm Btl -] oxyCODONE HCL [Roxicodone -] 5 mg PO TID PRN #9 tablet MDD 3 05/25/20 tabs Abnormal Lab Results 05/29/20 05/29/20 20:40 20:40 RBC 1.85 L Hgb 7.2 L Hct 21.3 L MCV 114.8 H MCH 38.9 H Monocytes % 11.6 H Nucleated RBC % 1 H Sodium 135 L Calcium 8.3 L AST 39 H Alkaline Phosphatase 28 L Total Protein 5.1 L Albumin 2.3 L Current Medications Generic Name Dose Route Start Last Admin Trade Name Ryan PRN Reason Stop Dose Admin Acetaminophen 650 mg 05/30/20 01:09 Tylenol - PO Q6H PRN PAIN LEVEL 7 - 10 Docusate Sodium 100 mg 05/30/20 10:00 Colace - PO DAILY [facility] Folic Acid 1 mg 05/30/20 10:00 Folic Acid - PO DAILY [facility] Sodium Chloride 1,000 mls @ 75 mls/hr 05/30/20 00:30 05/30/20 00:42 Normal Saline - IV 75 mls/hr ASDIR [facility] Administration Miscellaneous 1 each 05/29/20 22:00 05/29/20 22:14 Lidoderm Patch Removal MC Not Given DAILY@2200 [facility] Multivitamins/Minerals/Vitamin C 1 tab 05/30/20 10:00 Tab-A-Vit - PO DAILY ALEXEI Senna 1 tab 05/30/20 22:00 Senna - PO HS [facility] Thiamine HCl 100 mg 05/30/20 10:00 Vitamin B1 - PO DAILY ALEXEI ASSESSMENT AND PLAN: 1. Fall/Intractable pain - Preliminary report of lumbar CT, lumbar xray, hip/pelvis xray and left hand xray didnot reveal any fracture or dislocation. Left hand xray shows soft tissue swelling. Left 5th digit laceration sutured. Severe anemia may have contributed to fall. ER staff prescribed Tylenol, DPT vaccine, Lidocaine patch, Oxycodone and Ketorolac for the patient. Will give 2 gm IV Ancef for deep finger laceration. EKG shows NSR at 66/minute and QTc [address]-T wave changes. Will monitor on telemetry, continue analgesics, provide bowel regimen and implement fall precautions and consult PT. ER staff consulted his Neurosurgeon. Will treat with IV NS for low BP. Viral testing for COVID-19 ordered and patient placed on airborne, droplet and contact isolation. Will continue comprehensive care for all of patients comorbid conditions. 2. Severe hypoalbuminemia - He has had documented low albumin for over 18 months with a jabari of 2 g/dL in 11/2018. Will get urinalysis and urine protein/creatinine ratio. Possibly due to combined effects of malnutrition and inflammation associated with comorbid conditions. Will ensure adequate dietary protein intake and also consult comber setter. 3. Anemia with macrocytosis - Macrocytosis is chronic and may be related to alcoholism. Hematocrit was 37.7% on 05/23/2020 before his surgery and declined to 22.8% when he was discharged on 05/25/2020. Will do basic anemia work up including serial stool guaiacs, folate/B12 levels, reticulocyte count and iron studies. Would benefit from PRBC transfusion today and then IV Venofer 500 mg x 2 doses tomorrow. 4. Alcohol abuse - Alcohol level pending. Will implement [facility] librium alcohol withdrawal protocol and do neurochecks. Implement seizure, fall and aspiration precautions. Treat with IV Banana bag, thiamine and folic acid. Monitor and replete electrolytes (Ca,Mg,K,P). Counseled patient about abstaining from alcohol. Will consult outbound sales specialist and refer to alcohol detox upon discharge. 5. Hypertension Will hold outpatient antihypertensive drugs for now - his BP is low. Subsequently, will revise regimen to ensure [id number] excellent BP control. Patient counseled on the injurious effects of uncontrolled hypertension. Nonpharmacologic measures to control hypertension like weight loss, salt restriction and exercise stressed. Importance of adherence to treatment regimen and attainment of normotension emphasized. 6. DVT prophylaxis - Lovenox 40 mg SQ q 24 hours. 7. Advance directives - Full code
[2020-05-30] MEDS ORDERED: CEFAZOLIN 2 GM/D5W 2 GM/50 ML ML IVPB ONE ×2 (00:13→00:43)
[2020-05-30] MEDS ORDERED: SODIUM CHLORIDE 1,000 ML IV SCH (00:30)
--- NOTE | 2020-05-30 00:52 | HP ---
CHIEF COMPLAINT: I fell down PCP: Anoop HISTORY OF PRESENT ILLNESS: Reg Banerjee is a 64 M with a PMH of Multiple spinal surgeries, HTN, presents with s/p fall. He reports that he had a recent surgery on 05/22/20, and since then he had b/l leg pain/numbness/weakness and had not been able to ambulate. Today he wanted to go buy something, so he was heading toward his car, walking with his walker, when he felt severe pain on his left leg w/ weakness and lost his balance and fell on his L. hand and L. butto ck. He denies any head trauma, LOC, dizziness, nausea, vomiting, palpitations, chest pain associated with his fall. Patient was reluctant to provide much details, stating that he is tired of being questioned and wants to go home. Previous admission: 05/22-05/25: Patient presented for a spinal surgery with Dr. liu. During his stay, patient underwent a complex spine surgery (1. Removal of hardware L3-L4, 2. Inspection of fusion mass, 3. L3-S1 laminectomies, 4. L4-L5 & L5-S1 PLIF, 5. L3-S1 posterior instrumented spinal fusion, 6. Bone autograft, 7. Bone allograft). Estimated blood loss of 1.7 L with 875 cell saver + 3L of crystalloid fluid resuscitation. The patient was d/c home with surgery follow up referral on and CBC outpatient f/u (CBC at discharge 7.9/22.8) ER course: patient was given tyleonol, roxicodone and toradol in ER. He reports significant improvement of of his pain after medications. Imagings: Hip/pelvis, Hand and lumbar spine XR was negative for acute fractures or dislocations, Lumbar spine CT revealed no acute fractures. Patient reports that he wants to go home in the morning, after his blood transfusion. ER course was notable for: (1) H/H 7.2/21.3 (2) Albumin 2.3 (3) BP 102/54, repeat 99/44 Recent Travel: denies PAST MEDICAL HISTORY: As above in HPI PAST SURGICAL HISTORY: As above in HPI Social History: Patient was reluctant to provide details Smoking: cigars 5/day for many years Alcohol: Everyday, current use Drugs: denies Allergies No Known Allergies Allergy (Verified 05/29/20 16:08) HOME MEDICATIONS: Home Medications Medication Instructions Recorded Gabapentin 600 mg PO BID 11/24/18 Telmisartan 80 mg PO DAILY 05/22/20 Docusate Sodium [Colace -] 100 mg PO TID capsule 05/25/20 Ferrous Sulfate [Feosol] 325 mg PO BID #60 tab 05/25/20 Polyethylene Glycol 3350 [Miralax 17 gm PO DAILY bottle 05/25/20 119 gm Btl -] oxyCODONE HCL [Roxicodone -] 5 mg PO TID PRN #9 tablet MDD 3 05/25/20 tabs REVIEW OF SYSTEMS CONSTITUTIONAL: Absent: fever, chills, diaphoresis, generalized weakness, malaise, loss of appetite, weight change HEENT: Absent: rhinorrhea, nasal congestion, throat pain, difficulty swallowing, visual changes CARDIOVASCULAR: Absent: chest pain, syncope, palpitations, irregular heart rate, lightheadedness, peripheral edema RESPIRATORY: Absent: cough, shortness of breath, dyspnea with exertion, orthopnea, wheezing GASTROINTESTINAL: Absent: abdominal pain, abdominal distension, nausea, vomiting, diarrhea, constipation GENITOURINARY: Absent: dysuria, frequency, urgency, hesitancy, hematuria, flank pain MUSCULOSKELETAL: present: b/l numbness L>R Absent: myalgia, arthralgia, joint swelling, back pain, neck pain NEUROLOGIC: Absent: headache, focal weakness or paresthesias, dizziness, unsteady gait, bladder or bowel incontinence PHYSICAL EXAMINATION Vital Signs - 24 hr 05/29/20 16:08 Temperature 98.2 F Pulse Rate 74 Respiratory 16 Rate Blood Pressure 102/54 L O2 Sat by Pulse 99 Oximetry (%) GENERAL: Awake, alert, and fully oriented, in no acute distress. HEAD: Normal with no signs of trauma. EYES: Pupils equal, round and reactive to light, extraocular movements intact, sclera anicteric, conjunctiva clear. EARS, NOSE, THROAT: Ears normal, nares patent, oropharynx clear without exudates. Moist mucous membranes. NECK: Normal range of motion, supple without lymphadenopathy, JVD, or masses. LUNGS: Breath sounds equal, clear to auscultation bilaterally. No wheezes, and no crackles. No accessory muscle use. HEART: Regular rate and rhythm, normal S1 and S2 without murmur, rub or gallop. ABDOMEN: Soft, nontender, not distended, normoactive bowel sounds, no guarding, no rebound, no masses. No hepatomegaly or splenomegaly. MUSCULOSKELETAL: Normal range of motion at all joints. No bony deformities or tenderness. No CVA tenderness. UPPER EXTREMITIES: 2+ pulses, warm, well-perfused. No cyanosis. No clubbing. No peripheral edema. Laceration L 1st finger LOWER EXTREMITIES: 2+ pulses, warm, well-perfused. No calf tenderness. No peripheral edema. NEUROLOGICAL: Cranial nerves II-XII intact. Normal speech. Normal gait. Decreased sensation L>R, intact motor functions and strength 5/5 in all extremities SKIN: Warm, dry, normal turgor, no rashes or lesions noted, normal capillary refill. Laboratory Results - last 24 hr 05/29/20 05/29/20 05/29/20 20:40 20:40 23:43 WBC 9.9 RBC 1.85 L Hgb 7.2 L Hct 21.3 L MCV 114.8 H MCH 38.9 H MCHC 33.8 RDW 14.3 Plt Count 221 D MPV 8.2 Absolute Neuts (auto) 7.3 Neutrophils % 73.9 Lymphocytes % 13.4 D Monocytes % 11.6 H Eosinophils % 0.6 Basophils % 0.5 D Nucleated RBC % 1 H Sodium 135 L Potassium 4.1 Chloride 101 Carbon Dioxide 25 Anion Gap 8 BUN 17.0 Creatinine 1.1 Est GFR (CKD-EPI)AfAm 80.65 Est GFR (CKD-EPI)NonAf 69.58 Random Glucose 99 Calcium 8.3 L Total Bilirubin 0.6 AST 39 H ALT 23 Alkaline Phosphatase 28 L Total Protein 5.1 L Albumin 2.3 L Crossmatch See Detail ASSESSMENT/PLAN: 64 M with a PMH of Multiple spinal surgeries, HTN, presents with s/p fall. Labs were significant for H/H .12/31.3. Patient is admitted to [facility] for workup and management of his anemia. #Anemia with macrocytosis - 2/2 to acute blood loss from surgery vs Chronic related to chronic alcohol consumption. - 05/23: ( H/H 12.8/37.7), 05/25: (7.9/22.8 @ D/C) 05/29: (7.2.3) - Will evaluate with anemia workout including: FOBT, Retic count, Iron stud ies(prior to transfusion), Folate/B12 levels - Ordered 1 PRBC, will f/u with morning labs - Ordered N/S, patient currently has Low BP 102/54 (repeat 99/44) #Fall/Intractable pain - possibly 2/2 to severe anemia - Imaging XRs and CT was negative for acute fractures/dislocations - Patient reports improvements with ER medications - His Neurosurgeon has been consulted. - Fall precautions are in place - will hold Oxycodone for now due to low BP. Pain management with tylenol 650 mg PO Q6H PRN - PT consulted - s/p left 1st digit laceration repair, no active bleeding, 1 dose of ANCEF 2gm #Hx of alcohol use - Admits to everyday drinking but does not provide details. - Ordered alcohol level - will continue to monitor for possible withdrawal, CIWA protocol - Seizure precautions in place - Will treat with thiamine, folic acid and multivitamins - will continue to monitor electrolytes #hypoalbuminemia - Chronic hypoalnuminemia, 2/2 malnutrition vs inflammation or combinations of both - will f/u with UA and Urine Protein/Creatinine ratio to evaluate for kidney functions #HTN - Low bp at this time, will hold home antihypertensive meds for now - will continue to monitor v/s Q4H #FEN - N/S 75 mls/hr - Continue to monitor electrolytes, f/u with H/H - NPO at this time, pending Neurosurgery(Dr. liu) eval #DVT PPX - Holding chemical PPX at this time, pending eval - SCDs #DISPO - will continue to monitor in Tele, pending Neurosurg (Dr. Liu) eval Visit type - Medication Review Med list reviewed for High Risk Meds patients 65 and older: Yes - Emergency Visit Emergency Visit: Yes ED Registration Date: 05/29/20 Care time: The patient presented to the Emergency Department on the above date and was hospitalized for further evaluation of their emergent condition. - New Patient This patient is new to me today: Yes Date on this admission: 05/30/20 - Critical Care Critical Care patient: No ATTENDING PHYSICIAN STATEMENT I saw and evaluated the patient. I reviewed the resident's note and discussed the case with the resident. I agree with the resident's findings and plan as documented. SUBJECTIVE: OBJECTIVE: ASSESSMENT AND PLAN:
[2020-05-30] MEDS ORDERED: ACETAMINOPHEN 325 MG TABLET (FP) PO PRN (01:09)
[2020-05-30 05:47] VITALS: TEMP 98.6
[2020-05-30 09:05] VITALS: BP 113/60; PULSE 76
[2020-05-30] MEDS ORDERED: MULTIVITAMINS (DAILY MVI) TABLET (FP) ONE (09:30)
[2020-05-30] MEDS ORDERED: THIAMINE HCL 100 MG TABLET (FP) ONE (09:30)
[2020-05-30] MEDS ORDERED: DOCUSATE SODIUM 100 MG CAPSULE (FP) PO ONE (09:30)
[2020-05-30] MEDS ORDERED: FOLIC ACID 1 MG TABLET (FP) ONE (09:31)
[2020-05-30] MEDS ORDERED: THIAMINE HCL 100 MG TABLET (FP) PO SCH (10:00)
[2020-05-30] MEDS ORDERED: FOLIC ACID 1 MG TABLET (FP) PO SCH (10:00)
[2020-05-30] MEDS ORDERED: DOCUSATE SODIUM 100 MG CAPSULE (FP) PO SCH (10:00)
[2020-05-30] MEDS ORDERED: MULTIVITAMINS (DAILY MVI) TABLET (FP) PO SCH (10:00)
[2020-05-30 11:50] LABS: HEMATOCRIT 25.7 % (35.4-49); HEMOGLOBIN 8.6 GM/dL (11.7-16.9); MCH 37.3 pg (25.7-33.7); MCHC 33.3 g/dl (32.0-35.9); MEAN CELL VOLUME 111.9 fl (80-96); PLATELET COUNT 250 K/MM3 (134-434); RDW 17.9 % (11.9-15.9); WHITE BLOOD COUNT 9.7 K/mm3 (4.0-10.0)
--- NOTE | 2020-05-30 12:05 | EKG ---
Test Reason : Blood Pressure : / mmHG Vent. Rate : 066 BPM Atrial Rate : 066 BPM P-R Int : 164 ms QRS Dur : 108 ms QT Int : 434 ms P-R-T Axes : 066 075 052 degrees QTc Int : 454 ms NORMAL SINUS RHYTHM NORMAL ECG WHEN COMPARED WITH ECG OF 23-NOV-2018 08:21, NO SIGNIFICANT CHANGE WAS FOUND Confirmed by Nader Deluca MD ([id number]) on 05/30/2020 12:05:07 PM Referred By: Confirmed By:Nader Deluca MD
--- NOTE | 2020-05-30 13:51 | PN ---
Teaching Attending Note Name of Resident: Magdiel Kimbrough ATTENDING PHYSICIAN STATEMENT I saw and evaluated the patient. I reviewed the resident's note and discussed the case with the resident. I agree with the resident's findings and plan as documented. SUBJECTIVE: Seen and examined at bedside. Patient reports back pain is improved and he is able to ambulate with his cane without assistance. Patient received 1 unit PRBC with improvement in his hemoglobin to 8.6. Patient states he does not want to wait to be examined by neurosurgery and that he is comfortable to go home. Patient was found to have folate deficiency anemia on top of acute blood loss anemia. Patient reports to have had folate deficiency in the past. We will discharge him with folate supplements. OBJECTIVE: Last Vital Signs Temp Pulse Resp BP Pulse Ox 98.6 F 76 16 113/60 95 05/30/20 08:59 05/30/20 08:59 05/30/20 08:59 05/30/20 08:59 05/30/20 08:59 PE: per resident note Labs/Imaging: reviewed ASSESSMENT AND PLAN: 64 M with a PMH of Multiple spinal surgeries, HTN, presents with s/p fall. Labs were significant for H/H 7.2/21.3. Patient admitted to [facility] for workup and management of his anemia. Patient's pain improved and he is currently able to ambulate. Patient received 1 unit of PRBC with good response. Transferrin saturation was approximately 20% and patient was found to have a folate of 3. Cause of anemia is likely acute blood loss anemia following his recent back surgery combined with a folate deficiency which according to the patient he has had diagnosed before. Denies any abdominal surgeries but is a known alcoholic. Patient will be discharged on a folic acid supplement and can follow-up with neurosurgery for management of his pain.
--- NOTE | 2020-05-30 14:18 | DS ---
Physical Exam: SUBJECTIVE: Patient seen and examined Patient was seen at bedside in holding. Patient's pinky was observed to be bloody from prior fall. Patient is anxious to go home and wanted to sign out AMA. Spoke to the patient and agreed to be treated. OBJECTIVE: Vital Signs Period Temp Pulse Resp BP Sys/Canales Pulse Ox Last 24 Hr 98.2 F-98.9 F 63-76 16-20 94-113/54-60 89-99 PHYSICAL EXAM GENERAL: The patient is awake, alert, and fully oriented, in no acute distress. HEAD: Normal with no signs of trauma. LUNGS: Breath sounds equal, clear to auscultation bilaterally, no wheezes, no crackles, no accessory muscle use. HEART: Regular rate and rhythm, S1, S2 without murmur, rub or gallop. EXTREMITIES: 2+ pulses, warm, well-perfused, no edema. NEUROLOGICAL:gait observed, walks with cane, wide based gait, normal pace LABS Laboratory Results - last 24 hr 05/29/20 05/29/20 05/29/20 20:40 20:40 23:43 WBC 9.9 RBC 1.85 L Hgb 7.2 L Hct 21.3 L MCV 114.8 H MCH 38.9 H MCHC 33.8 RDW 14.3 Plt Count 221 D MPV 8.2 Absolute Neuts (auto) 7.3 Neutrophils % 73.9 Lymphocytes % 13.4 D Monocytes % 11.6 H Eosinophils % 0.6 Basophils % 0.5 D Nucleated RBC % 1 H Retic Count Sodium 135 L Potassium 4.1 Chloride 101 Carbon Dioxide 25 Anion Gap 8 BUN 17.0 Creatinine 1.1 Est GFR (CKD-EPI)AfAm 80.65 Est GFR (CKD-EPI)NonAf 69.58 Random Glucose 99 Calcium 8.3 L Iron TIBC Iron Saturation Unsaturated IBC Ferritin Total Bilirubin 0.6 AST 39 H ALT 23 Alkaline Phosphatase 28 L Total Protein 5.1 L Albumin 2.3 L Vitamin B12 Serum Folate Alcohol, Quantitative Blood Type O POSITIVE Antibody Screen Negative Crossmatch See Detail 05/30/20 05/30/20 05/30/20 00:17 00:35 00:35 WBC RBC Hgb Hct MCV MCH MCHC RDW Plt Count MPV Absolute Neuts (auto) Neutrophils % Lymphocytes % Monocytes % Eosinophils % Basophils % Nucleated RBC % Retic Count 8.65 H Sodium Potassium Chloride Carbon Dioxide Anion Gap BUN Creatinine Est GFR (CKD-EPI)AfAm Est GFR (CKD-EPI)NonAf Random Glucose Calcium Iron 40 L TIBC 186 L Iron Saturation 21 Unsaturated IBC 146 L Ferritin 374.5 Total Bilirubin AST ALT Alkaline Phosphatase Total Protein Albumin Vitamin B12 714 Serum Folate 3 L Alcohol, Quantitative < 3 Blood Type Antibody Screen Crossmatch 05/30/20 10:00 WBC 9.7 RBC 2.30 L Hgb 8.6 L Hct 25.7 L D MCV 111.9 H MCH 37.3 H MCHC 33.3 RDW 17.9 H Plt Count 250 MPV 9.0 Absolute Neuts (auto) Neutrophils % Lymphocytes % Monocytes % Eosinophils % Basophils % Nucleated RBC % Retic Count Sodium Potassium Chloride Carbon Dioxide Anion Gap BUN Creatinine Est GFR (CKD-EPI)AfAm Est GFR (CKD-EPI)NonAf Random Glucose Calcium Iron TIBC Iron Saturation Unsaturated IBC Ferritin Total Bilirubin AST ALT Alkaline Phosphatase Total Protein Albumin Vitamin B12 Serum Folate Alcohol, Quantitative Blood Type Antibody Screen Crossmatch HOSPITAL COURSE: SPINAL SURGERY NOTE: Previous admission: 05/22-05/25: Patient presented for a spinal surgery with Dr. liu. During his stay, patient underwent a complex spine surgery (1. Removal of hardware L3-L4, 2. Inspection of fusion mass, 3. L3-S1 laminectomies, 4. L4-L5 & L5-S1 PLIF, 5. L3-S1 posterior instrumented spinal fusion, 6. Bone autograft, 7. Bone allograft). Estimated blood loss of 1.7 L with 875 cell saver + 3L of crystalloid fluid resuscitation. The patient was d/c home with surgery follow up referral on and CBC outpatient f/u (CBC at discharge 7.9/22.8) Date of Admission:05/29/20 Mr. Banerjee is a 64 M w a h/o of complex spinal surgery 05/22/20, FOLATE DEFICIENCY, and HTN. The patient presented to the hospital for a fall that had occurred when he experienced a sharp pain in his left leg that caused him to lose balance and fall on his left buttock and L hand. The patient denies any traumatic events during the fall. Patient denied LOC, striking head, or amnesia of the event. The patient responded well to the pain medication given in the ED and became progressively eager to leave AMA. I had spoken to the patient explaining that his lab work required treatment for a decreased Hgb and folic acid and he had agreed to be treated with blood transfusion monitoring and folic acid supplimentation. Once the hgb had resolved the patient wished to follow up outpatient. The patient also agrees to follow up outpatient to trend folic acid and lab results. Date of Discharge: 05/30/20 Minutes to complete discharge: 40 Discharge Summary Problems reviewed: Yes Reason For Visit: INTRACTABLE BACK PAIN,THROMBOCYTOPENIA,FALL Condition: Good - Instructions Diet, Activity, Other Instructions: YOUR VISIT: You were admitted to the hospital because of pain and weakness in your legs. While you were evaluated with lab work, blood work, an x-ray of your spine, hips, and hands, and a CAT scan of your lumbar spine. While you were here, you were also found to have a laboratory abnormality of a deficiency in folate which could likely be the cause of your low blood count. You should take folate pills daily indefinitely. The low blood count was also likely a result of blood loss from the spinal surgery you recently had. You were treated with fluids, blood transfusion, folate, and nutrients to help you recover. You must follow up with your primary care physician one week after discharge. CARE: It is advisable that you use the pain medication to mitigate the pain. We advise you to maintain hydration, diet, and proper hygiene. We highly suggest that you take folate supplements that will be prescribed to you. MEDICATIONS: Please START taking 1mg of FOLATE every day. Please continue taking all of your medications as prescribed Please continue taking your blood pressure medications regularly as prescribed FOLLOW UP: Please follow up with your primary care physician within 1 week if you do not have a primary care physician, you may make an appointment with Dr. Davalos within 1 week of discharge to follow up on your blood work. ADDITIONAL INFORMATION: You are being discharged HOME Please return to the emergency department if you are experiencing any worsening back pain, fatigue, numbness or tingling in your legs or feet, or sudden weakness in your extremities. Referrals: Abilio Davalos [Primary Care Provider] - Iain Liu MD [Staff Physician] - Juwan Liu MD [Staff Physician] - Disposition: HOME - Home Medications Comprehensive Discharge Medication List: Ambulatory Orders Gabapentin 600 mg PO BID 11/24/18 Telmisartan 80 mg PO DAILY 05/22/20 Docusate Sodium [Colace -] 100 mg PO TID capsule 05/25/20 Ferrous Sulfate [Feosol] 325 mg PO BID #60 tab 05/25/20 Polyethylene Glycol 3350 [Miralax 119 gm Btl -] 17 gm PO DAILY bottle 05/25/20 oxyCODONE HCL [Roxicodone -] 5 mg PO TID PRN #9 tablet MDD 3 tabs 05/25/20 Folic Acid 1 mg PO DAILY 30 Days #30 tablet 05/30/20 This patient is new to me today: Yes Date on this admission: 05/30/20 Emergency Visit: Yes ED Registration Date: 05/29/20 Care time: The patient presented to the Emergency Department on the above date and was hospitalized for further evaluation of their emergent condition. Critical Care patient: No - Discharge Referral [facility]erred to [facility] Med P.C.: No ATTENDING PHYSICIAN STATEMENT I saw and evaluated the patient. I reviewed the resident's note and discussed the case with the resident. I agree with the resident's findings and plan as documented. SUBJECTIVE: OBJECTIVE: ASSESSMENT AND PLAN:
[2020-05-30] MEDS ORDERED: SENNOSIDES 8.6MG TABLET (FP) PO SCH (22:00)
--- NOTE | 2020-05-31 14:08 | PDOC ---
Rapid Medical Evaluation Chief Complaint: Injury Time Seen by Provider: 05/29/20 16:14 Medical Evaluation: Allergies Allergy/AdvReac Type Severity Reaction Status Date / Time No Known Allergies Allergy Verified 05/29/20 16:08 Vital Signs Temp Pulse Resp BP Pulse Ox 98.6 F 76 16 113/60 95 05/30/20 08:59 05/30/20 08:59 05/30/20 08:59 05/30/20 08:59 05/30/20 08:59 05/31/20 14:07 I received a phone call yesterday May 30, 2020 by radiology regarding final read of left hand film which is positive avulsion or calcification of fifth digit. Today I attempted to locate patient demographics which is unavailable in all charts therefore I was unable to contact the patient. Discharge Disposition - Diagnosis Fall, Intractable back pain - Discharge Dispostion Condition at time of disposition: Good Last Admission D/C Date: 05/25/20 - Referrals - Patient Instructions - Post Discharge Activity
== END 2020-05-30 13:30 | disposition home or self-care (01) | DRG 812 ==
LOC: JER 15:58 → SUPCPDRO 15:58 → JERBED 19:31
PROVIDERS: ADMIT Internal Medicine; ATTEND Internal Medicine
DX: D62 Acute posthemorrhagic anemia (principal); D75.89 Other specified diseases of blood and blood-forming organs; E88.09 Other disorders of plasma-protein metabolism, not elsewhere classified; I10 Essential (primary) hypertension; D69.6 Thrombocytopenia, unspecified
CPT/HCPCS: 36415; 36430; 72100-TC-FY; 72131-TC; 73130-TC-LT-FY; 73523-TC-FY; 80053; 80307; 82607; 82728; 82746; 83540; 83550; 85025; 85027; 85044; 86850; 86900; 86901; 86922; 90715; 93005; 93010; 99285-25; P9058; U0003